=== PATIENT | female | born 1955 | race Caucasian/White ===

== ENCOUNTER → 2017-12-21 | Outpatient (CLI) | payer BC ==
[~2017-12-21] MED LIST: GADOBUTROL 7.5 MMOL/7.5 ML (GADAVIST) VIAL IV ONE
--- NOTE | 2017-12-21 13:58 | Diagnostic Imaging Report ---
INDICATION: Multiple myeloma. EXAMINATION: Pre-and post-intravenous contrast multiplanar multisequence imaging of the thoracic spine was performed. COMPARISON: Correlation is made with prior MRI of the thoracic spine from 10/20/2017. FINDINGS: There has been further loss of height of the T6 vertebral body when compared with the prior exam. This is now near vertebral plana. The degree of abnormal enhancement and overall volume of the marrow replacing process involving T6 vertebral body has decreased significantly since prior exam. There continues to be involvement of the right pedicle. There continues to be some bulging posteriorly indenting the thecal sac and producing a mild narrowing of the canal. However, again no signal changes within the spinal cord are identified. No abnormal enhancement within the spinal cord is identified. Tiny area of enhancement involving the T9 vertebral body is stable. No new region of enhancement is detected. The paraspinous tissues are unremarkable. IMPRESSION: Further progression of compression of the T6 vertebral body since exam from 10/20/2017, which is now near vertebra plana. The overall tumor volume does appear to be significantly decreased however since prior exam. There continues to be abnormal enhancement at the T6 level as well as a tiny focus at the T9 level. No abnormal signal changes within the spinal cord or new regions of marrow replacement are identified. Dictated by: Dictated on workstation # [id number]
== END ==
LOC: RAD 10:30
PROVIDERS: ATTEND Radiology Radiation Oncology
DX: C90.00 Multiple myeloma not having achieved remission (principal)
CPT/HCPCS: 72157

== ENCOUNTER → 2018-01-14 | Outpatient (CLI) | payer BC | LOC: WOUNDCARE 08:49 | PROVIDERS: ATTEND Internal Medicine | DX: L89.893 Pressure ulcer of other site, stage 3 (principal); L84 Corns and callosities; C90.00 Multiple myeloma not having achieved remission; R73.09 Other abnormal glucose | CPT/HCPCS: 11042; 87070; 87075; 87101; 87205 ==

== ENCOUNTER → 2018-01-14 | Outpatient (CLI) | payer BC ==
--- NOTE | 2018-01-14 11:46 | Diagnostic Imaging Report ---
Right foot. INDICATION: Foot pain. 3 views were obtained. There are no prior studies available for comparison. FINDINGS: There are postsurgical changes involving the base of the first metatarsal and the first cuneiform. There are 2 orthopedic fixation wires traversing the first carpometacarpal joint. There also appear to be degenerative changes involving the joint and the articulation of the first and second cuneiforms. There is fairly severe degenerative disease of the articular surfaces of the cuneiforms and the navicular bone as well. There are also degenerative changes involving the third cuneiform and the base of the third metatarsal. There is no fracture or acute bony abnormality identified. There is a calcaneal spur and there is a small calcification in the soft tissues anterior to the calcaneal spur. This may be a sequela of prior trauma. The soft tissues are unremarkable. IMPRESSION: 1. There is no evidence for an acute bony abnormality. 2. There are postsurgical and degenerative changes involving the midfoot particularly the medial half of the midfoot. 3. If clinical concern regarding an underlying abnormality persists and further imaging is desired, then MRI would be recommended. Dictated by: Dictated on workstation # [id number]
== END ==
LOC: RAD 10:30
PROVIDERS: ATTEND Internal Medicine
DX: L89.893 Pressure ulcer of other site, stage 3 (principal); Z98.890 Other specified postprocedural states
CPT/HCPCS: 73630

== ENCOUNTER → 2018-01-18 | Outpatient (RCR) | payer BC ==
[2017-10-20 15:14] LABS: ABSOLUTE RETIC # 42 10e9/L (24-90); BASOPHILS % (AUTO) 0 % (0-10); EOSINOPHILS % (AUTO) 0 % (0-10); HEMATOCRIT 41 % (35-52); HEMOGLOBIN 13.8 G/DL (11.5-16.0); LYMPHOCYTES # (AUTO) 1.4 X 10^3 (1.0-4.0); LYMPHOCYTES % (AUTO) 20 % (12-44); MEAN CORPUSCULAR HEMOGLOBIN 31 PG (25-34); MEAN CORPUSCULAR HGB CONC 34 G/DL (32-36); MEAN CORPUSCULAR VOLUME 90 FL (80-99); MEAN PLATELET VOLUME 11.8 FL (7.4-10.4); MONOCYTES # (AUTO) 0.8 X 10^3 (0.0-1.0); MONOCYTES % (AUTO) 12 % (0-12); NEUTROPHILS # (AUTO) 4.9 X 10^3 (1.8-7.8); NEUTROPHILS % (AUTO) 69 % (42-75); PLATELET COUNT 197 10^3/uL (130-400); RED BLOOD COUNT 4.48 10^6/uL (4.35-5.85); RED CELL DISTRIBUTION WIDTH 12.7 % (10.0-14.5); RETICULOCYTE % 0.93 % (0.50-2.40); WHITE BLOOD COUNT 7.1 10^3/uL (4.3-11.0)
[2017-10-20 15:21] LABS: ALANINE AMINOTRANSFERASE 27 U/L (0-55); ALBUMIN 4.1 GM/DL (3.2-4.5); ALKALINE PHOSPHATASE 84 U/L (40-136); BILIRUBIN,TOTAL 0.4 MG/DL (0.1-1.0); BUN/CREATININE RATIO 25; CARBON DIOXIDE 26 MMOL/L (21-32); CHLORIDE 103 MMOL/L (98-107); CREATININE SERUM 0.72 MG/DL (0.60-1.30); GFR ESTIMATED > 60; GLUCOSE 109 MG/DL (70-105); POTASSIUM 3.7 MMOL/L (3.6-5.0); SODIUM 140 MMOL/L (135-145); TOTAL PROTEIN 8.1 GM/DL (6.4-8.2)
[2017-10-23 06:54] LABS: IMMUNOFIX PATH REPORT NUMBER Complete (Complete)
[2017-11-11 13:38] LABS: BASOPHILS % (AUTO) 0 % (0-10); EOSINOPHILS % (AUTO) 0 % (0-10); HEMATOCRIT 42 % (35-52); HEMOGLOBIN 14.7 G/DL (11.5-16.0); LYMPHOCYTES # (AUTO) 0.5 X 10^3 (1.0-4.0); LYMPHOCYTES % (AUTO) 5 % (12-44); MEAN CORPUSCULAR HEMOGLOBIN 32 PG (25-34); MEAN CORPUSCULAR HGB CONC 35 G/DL (32-36); MEAN CORPUSCULAR VOLUME 89 FL (80-99); MEAN PLATELET VOLUME 12.3 FL (7.4-10.4); MONOCYTES # (AUTO) 0.9 X 10^3 (0.0-1.0); MONOCYTES % (AUTO) 9 % (0-12); NEUTROPHILS # (AUTO) 8.4 X 10^3 (1.8-7.8); NEUTROPHILS % (AUTO) 86 % (42-75); PLATELET COUNT 107 10^3/uL (130-400); RED BLOOD COUNT 4.64 10^6/uL (4.35-5.85); RED CELL DISTRIBUTION WIDTH 12.8 % (10.0-14.5); WHITE BLOOD COUNT 9.8 10^3/uL (4.3-11.0)
[2017-11-11 13:56] LABS: BUN/CREATININE RATIO 34; CARBON DIOXIDE 25 MMOL/L (21-32); CHLORIDE 104 MMOL/L (98-107); GFR ESTIMATED > 60; GLUCOSE 123 MG/DL (70-105); POTASSIUM 3.9 MMOL/L (3.6-5.0); SODIUM 140 MMOL/L (135-145)
[2017-11-18 14:34] LABS: BASOPHILS % (AUTO) 0 % (0-10); EOSINOPHILS # (AUTO) 0.1 10^3/uL (0.0-0.3); EOSINOPHILS % (AUTO) 2 % (0-10); HEMATOCRIT 44 % (35-52); HEMOGLOBIN 15.2 G/DL (11.5-16.0); LYMPHOCYTES # (AUTO) 0.6 X 10^3 (1.0-4.0); LYMPHOCYTES % (AUTO) 8 % (12-44); MEAN CORPUSCULAR HEMOGLOBIN 32 PG (25-34); MEAN CORPUSCULAR HGB CONC 34 G/DL (32-36); MEAN CORPUSCULAR VOLUME 93 FL (80-99); MEAN PLATELET VOLUME 11.1 FL (7.4-10.4); MONOCYTES # (AUTO) 1.2 X 10^3 (0.0-1.0); MONOCYTES % (AUTO) 15 % (0-12); NEUTROPHILS # (AUTO) 5.8 X 10^3 (1.8-7.8); NEUTROPHILS % (AUTO) 75 % (42-75); PLATELET COUNT 208 10^3/uL (130-400); RED BLOOD COUNT 4.79 10^6/uL (4.35-5.85); RED CELL DISTRIBUTION WIDTH 14.5 % (10.0-14.5); WHITE BLOOD COUNT 7.7 10^3/uL (4.3-11.0)
[2017-11-18 14:59] LABS: BUN/CREATININE RATIO 41; CALCIUM 8.6 MG/DL (8.5-10.1); CARBON DIOXIDE 27 MMOL/L (21-32); CHLORIDE 104 MMOL/L (98-107); CREATININE SERUM 0.61 MG/DL (0.60-1.30); GFR ESTIMATED > 60; GLUCOSE 114 MG/DL (70-105); POTASSIUM 3.5 MMOL/L (3.6-5.0); SODIUM 140 MMOL/L (135-145)
[2017-11-24 11:04] LABS: BASOPHILS % (AUTO) 1 % (0-10); EOSINOPHILS # (AUTO) 0.1 10^3/uL (0.0-0.3); EOSINOPHILS % (AUTO) 2 % (0-10); HEMATOCRIT 43 % (35-52); HEMOGLOBIN 14.9 G/DL (11.5-16.0); LYMPHOCYTES # (AUTO) 0.5 X 10^3 (1.0-4.0); LYMPHOCYTES % (AUTO) 13 % (12-44); MEAN CORPUSCULAR HEMOGLOBIN 32 PG (25-34); MEAN CORPUSCULAR HGB CONC 35 G/DL (32-36); MEAN CORPUSCULAR VOLUME 93 FL (80-99); MEAN PLATELET VOLUME 10.6 FL (7.4-10.4); MONOCYTES # (AUTO) 0.7 X 10^3 (0.0-1.0); MONOCYTES % (AUTO) 19 % (0-12); NEUTROPHILS # (AUTO) 2.4 X 10^3 (1.8-7.8); NEUTROPHILS % (AUTO) 66 % (42-75); PLATELET COUNT 231 10^3/uL (130-400); RED BLOOD COUNT 4.65 10^6/uL (4.35-5.85); WHITE BLOOD COUNT 3.6 10^3/uL (4.3-11.0)
[2017-11-24 11:30] LABS: ALANINE AMINOTRANSFERASE 45 U/L (0-55); ALBUMIN 3.7 GM/DL (3.2-4.5); ALKALINE PHOSPHATASE 73 U/L (40-136); BILIRUBIN,TOTAL 0.5 MG/DL (0.1-1.0); BUN/CREATININE RATIO 32; CALCIUM 8.6 MG/DL (8.5-10.1); CARBON DIOXIDE 23 MMOL/L (21-32); CHLORIDE 107 MMOL/L (98-107); CREATININE SERUM 0.65 MG/DL (0.60-1.30); GFR ESTIMATED > 60; GLUCOSE 116 MG/DL (70-105); POTASSIUM 3.9 MMOL/L (3.6-5.0); SODIUM 141 MMOL/L (135-145); TOTAL PROTEIN 6.4 GM/DL (6.4-8.2)
[2017-11-30 13:50] LABS: BASOPHILS % (AUTO) 1 % (0-10); EOSINOPHILS % (AUTO) 1 % (0-10); HEMATOCRIT 45 % (35-52); HEMOGLOBIN 15.4 G/DL (11.5-16.0); LYMPHOCYTES # (AUTO) 0.6 X 10^3 (1.0-4.0); LYMPHOCYTES % (AUTO) 15 % (12-44); MEAN CORPUSCULAR HEMOGLOBIN 32 PG (25-34); MEAN CORPUSCULAR HGB CONC 34 G/DL (32-36); MEAN CORPUSCULAR VOLUME 93 FL (80-99); MEAN PLATELET VOLUME 10.2 FL (7.4-10.4); MONOCYTES # (AUTO) 0.6 X 10^3 (0.0-1.0); MONOCYTES % (AUTO) 14 % (0-12); NEUTROPHILS # (AUTO) 2.9 X 10^3 (1.8-7.8); NEUTROPHILS % (AUTO) 70 % (42-75); PLATELET COUNT 241 10^3/uL (130-400); RED BLOOD COUNT 4.81 10^6/uL (4.35-5.85); RED CELL DISTRIBUTION WIDTH 15.4 % (10.0-14.5); WHITE BLOOD COUNT 4.2 10^3/uL (4.3-11.0)
[2017-11-30 14:13] LABS: BUN/CREATININE RATIO 29; CARBON DIOXIDE 27 MMOL/L (21-32); CHLORIDE 105 MMOL/L (98-107); CREATININE SERUM 0.68 MG/DL (0.60-1.30); GFR ESTIMATED > 60; GLUCOSE 119 MG/DL (70-105); POTASSIUM 4.1 MMOL/L (3.6-5.0); SODIUM 141 MMOL/L (135-145)
[2017-12-07 13:25] LABS: BASOPHILS % (AUTO) 0 % (0-10); EOSINOPHILS % (AUTO) 0 % (0-10); HEMATOCRIT 48 % (35-52); HEMOGLOBIN 16.6 G/DL (11.5-16.0); LYMPHOCYTES # (AUTO) 0.9 X 10^3 (1.0-4.0); LYMPHOCYTES % (AUTO) 12 % (12-44); MEAN CORPUSCULAR HEMOGLOBIN 32 PG (25-34); MEAN CORPUSCULAR HGB CONC 35 G/DL (32-36); MEAN CORPUSCULAR VOLUME 92 FL (80-99); MEAN PLATELET VOLUME 12.2 FL (7.4-10.4); MONOCYTES # (AUTO) 0.4 X 10^3 (0.0-1.0); MONOCYTES % (AUTO) 6 % (0-12); NEUTROPHILS # (AUTO) 5.8 X 10^3 (1.8-7.8); NEUTROPHILS % (AUTO) 81 % (42-75); PLATELET COUNT 111 10^3/uL (130-400); RED BLOOD COUNT 5.22 10^6/uL (4.35-5.85); RED CELL DISTRIBUTION WIDTH 15.3 % (10.0-14.5); WHITE BLOOD COUNT 7.2 10^3/uL (4.3-11.0)
[2017-12-07 13:40] LABS: BUN/CREATININE RATIO 19; CALCIUM 8.8 MG/DL (8.5-10.1); CARBON DIOXIDE 21 MMOL/L (21-32); CHLORIDE 107 MMOL/L (98-107); GFR ESTIMATED > 60; GLUCOSE 126 MG/DL (70-105); POTASSIUM 3.8 MMOL/L (3.6-5.0); SODIUM 140 MMOL/L (135-145)
[2017-12-14 14:40] LABS: BASOPHILS % (AUTO) 0 % (0-10); EOSINOPHILS % (AUTO) 1 % (0-10); HEMATOCRIT 43 % (35-52); HEMOGLOBIN 15.2 G/DL (11.5-16.0); LYMPHOCYTES % (AUTO) 13 % (12-44); MEAN CORPUSCULAR HEMOGLOBIN 32 PG (25-34); MEAN CORPUSCULAR HGB CONC 35 G/DL (32-36); MEAN CORPUSCULAR VOLUME 91 FL (80-99); MONOCYTES % (AUTO) 13 % (0-12); NEUTROPHILS # (AUTO) 5.6 X 10^3 (1.8-7.8); NEUTROPHILS % (AUTO) 73 % (42-75); PLATELET COUNT 58 10^3/uL (130-400); RED BLOOD COUNT 4.71 10^6/uL (4.35-5.85); RED CELL DISTRIBUTION WIDTH 15.2 % (10.0-14.5); WHITE BLOOD COUNT 7.6 10^3/uL (4.3-11.0)
[2017-12-14 14:57] LABS: BUN/CREATININE RATIO 25; CARBON DIOXIDE 24 MMOL/L (21-32); CHLORIDE 109 MMOL/L (98-107); CREATININE SERUM 0.68 MG/DL (0.60-1.30); GFR ESTIMATED > 60; GLUCOSE 102 MG/DL (70-105); POTASSIUM 3.8 MMOL/L (3.6-5.0); SODIUM 141 MMOL/L (135-145)
[2017-12-21 12:30] LABS: BASOPHILS % (AUTO) 0 % (0-10); EOSINOPHILS % (AUTO) 0 % (0-10); HEMATOCRIT 43 % (35-52); LYMPHOCYTES # (AUTO) 0.6 X 10^3 (1.0-4.0); LYMPHOCYTES % (AUTO) 8 % (12-44); MEAN CORPUSCULAR HEMOGLOBIN 32 PG (25-34); MEAN CORPUSCULAR HGB CONC 35 G/DL (32-36); MEAN CORPUSCULAR VOLUME 93 FL (80-99); MEAN PLATELET VOLUME 11.1 FL (7.4-10.4); MONOCYTES # (AUTO) 0.4 X 10^3 (0.0-1.0); MONOCYTES % (AUTO) 4 % (0-12); NEUTROPHILS % (AUTO) 88 % (42-75); PLATELET COUNT 320 10^3/uL (130-400); RED BLOOD COUNT 4.67 10^6/uL (4.35-5.85)
[2017-12-21 12:54] LABS: ALANINE AMINOTRANSFERASE 24 U/L (0-55); ALBUMIN 4.5 GM/DL (3.2-4.5); ALKALINE PHOSPHATASE 81 U/L (40-136); BILIRUBIN,TOTAL 1.1 MG/DL (0.1-1.0); BUN/CREATININE RATIO 23; CALCIUM 9.8 MG/DL (8.5-10.1); CARBON DIOXIDE 20 MMOL/L (21-32); CHLORIDE 106 MMOL/L (98-107); CREATININE SERUM 0.74 MG/DL (0.60-1.30); GFR ESTIMATED > 60; GLUCOSE 158 MG/DL (70-105); POTASSIUM 3.9 MMOL/L (3.6-5.0); SODIUM 140 MMOL/L (135-145); TOTAL PROTEIN 7.3 GM/DL (6.4-8.2)
[2017-12-28 13:33] LABS: BASOPHILS % (AUTO) 0 % (0-10); EOSINOPHILS # (AUTO) 0.1 10^3/uL (0.0-0.3); EOSINOPHILS % (AUTO) 1 % (0-10); HEMATOCRIT 45 % (35-52); LYMPHOCYTES # (AUTO) 0.6 X 10^3 (1.0-4.0); LYMPHOCYTES % (AUTO) 8 % (12-44); MEAN CORPUSCULAR HEMOGLOBIN 32 PG (25-34); MEAN CORPUSCULAR HGB CONC 33 G/DL (32-36); MEAN CORPUSCULAR VOLUME 95 FL (80-99); MEAN PLATELET VOLUME 11.4 FL (7.4-10.4); MONOCYTES # (AUTO) 0.2 X 10^3 (0.0-1.0); MONOCYTES % (AUTO) 2 % (0-12); NEUTROPHILS # (AUTO) 6.3 X 10^3 (1.8-7.8); NEUTROPHILS % (AUTO) 88 % (42-75); PLATELET COUNT 101 10^3/uL (130-400); RED BLOOD COUNT 4.73 10^6/uL (4.35-5.85); WHITE BLOOD COUNT 7.1 10^3/uL (4.3-11.0)
[2017-12-28 14:01] LABS: BUN/CREATININE RATIO 19; CALCIUM 8.3 MG/DL (8.5-10.1); CARBON DIOXIDE 27 MMOL/L (21-32); CHLORIDE 104 MMOL/L (98-107); GFR ESTIMATED > 60; GLUCOSE 135 MG/DL (70-105); POTASSIUM 4.5 MMOL/L (3.6-5.0); SODIUM 141 MMOL/L (135-145)
[2018-01-04 13:36] LABS: BASOPHILS % (AUTO) 0 % (0-10); EOSINOPHILS # (AUTO) 0.1 10^3/uL (0.0-0.3); EOSINOPHILS % (AUTO) 1 % (0-10); HEMATOCRIT 42 % (35-52); LYMPHOCYTES # (AUTO) 0.9 X 10^3 (1.0-4.0); LYMPHOCYTES % (AUTO) 8 % (12-44); MEAN CORPUSCULAR HEMOGLOBIN 32 PG (25-34); MEAN CORPUSCULAR HGB CONC 34 G/DL (32-36); MEAN CORPUSCULAR VOLUME 95 FL (80-99); MONOCYTES # (AUTO) 1.9 X 10^3 (0.0-1.0); MONOCYTES % (AUTO) 16 % (0-12); NEUTROPHILS # (AUTO) 8.6 X 10^3 (1.8-7.8); NEUTROPHILS % (AUTO) 75 % (42-75); RED CELL DISTRIBUTION WIDTH 14.9 % (10.0-14.5); WHITE BLOOD COUNT 11.5 10^3/uL (4.3-11.0)
[2018-01-04 13:47] LABS: PLATELET COUNT 24 10^3/uL (130-400)
[2018-01-04 13:58] LABS: BUN/CREATININE RATIO 23; CALCIUM 8.4 MG/DL (8.5-10.1); CARBON DIOXIDE 30 MMOL/L (21-32); CHLORIDE 105 MMOL/L (98-107); CREATININE SERUM 0.69 MG/DL (0.60-1.30); GFR ESTIMATED > 60; GLUCOSE 91 MG/DL (70-105); SODIUM 141 MMOL/L (135-145)
[2018-01-07 09:56] LABS: BASOPHILS % (AUTO) 0 % (0-10); EOSINOPHILS # (AUTO) 0.1 10^3/uL (0.0-0.3); EOSINOPHILS % (AUTO) 2 % (0-10); HEMATOCRIT 39 % (35-52); HEMOGLOBIN 12.9 G/DL (11.5-16.0); LYMPHOCYTES # (AUTO) 0.6 X 10^3 (1.0-4.0); LYMPHOCYTES % (AUTO) 12 % (12-44); MEAN CORPUSCULAR HEMOGLOBIN 31 PG (25-34); MEAN CORPUSCULAR HGB CONC 33 G/DL (32-36); MEAN CORPUSCULAR VOLUME 95 FL (80-99); MEAN PLATELET VOLUME 12.4 FL (7.4-10.4); MONOCYTES # (AUTO) 1.1 X 10^3 (0.0-1.0); MONOCYTES % (AUTO) 21 % (0-12); NEUTROPHILS # (AUTO) 3.4 X 10^3 (1.8-7.8); NEUTROPHILS % (AUTO) 65 % (42-75); PLATELET COUNT 111 10^3/uL (130-400); RED BLOOD COUNT 4.11 10^6/uL (4.35-5.85); RED CELL DISTRIBUTION WIDTH 15.2 % (10.0-14.5); WHITE BLOOD COUNT 5.2 10^3/uL (4.3-11.0)
[2018-01-07 10:21] LABS: BUN/CREATININE RATIO 23; CALCIUM 8.6 MG/DL (8.5-10.1); CARBON DIOXIDE 25 MMOL/L (21-32); CHLORIDE 110 MMOL/L (98-107); CREATININE SERUM 0.64 MG/DL (0.60-1.30); GFR ESTIMATED > 60; GLUCOSE 88 MG/DL (70-105); POTASSIUM 3.7 MMOL/L (3.6-5.0); SODIUM 142 MMOL/L (135-145)
[2018-01-11 13:36] LABS: BASOPHILS % (AUTO) 0 % (0-10); EOSINOPHILS % (AUTO) 0 % (0-10); HEMATOCRIT 37 % (35-52); HEMOGLOBIN 12.4 G/DL (11.5-16.0); LYMPHOCYTES # (AUTO) 0.3 X 10^3 (1.0-4.0); LYMPHOCYTES % (AUTO) 5 % (12-44); MEAN CORPUSCULAR HEMOGLOBIN 32 PG (25-34); MEAN CORPUSCULAR HGB CONC 34 G/DL (32-36); MEAN CORPUSCULAR VOLUME 95 FL (80-99); MEAN PLATELET VOLUME 11.3 FL (7.4-10.4); MONOCYTES # (AUTO) 0.1 X 10^3 (0.0-1.0); MONOCYTES % (AUTO) 2 % (0-12); NEUTROPHILS # (AUTO) 5.3 X 10^3 (1.8-7.8); NEUTROPHILS % (AUTO) 93 % (42-75); PLATELET COUNT 357 10^3/uL (130-400); RED BLOOD COUNT 3.88 10^6/uL (4.35-5.85); RED CELL DISTRIBUTION WIDTH 14.8 % (10.0-14.5); WHITE BLOOD COUNT 5.7 10^3/uL (4.3-11.0)
[2018-01-11 14:01] LABS: ALANINE AMINOTRANSFERASE 26 U/L (0-55); ALKALINE PHOSPHATASE 77 U/L (40-136); BILIRUBIN,TOTAL 0.9 MG/DL (0.1-1.0); BUN/CREATININE RATIO 21; CALCIUM 9.8 MG/DL (8.5-10.1); CARBON DIOXIDE 28 MMOL/L (21-32); CHLORIDE 105 MMOL/L (98-107); GFR ESTIMATED > 60; GLUCOSE 129 MG/DL (70-105); POTASSIUM 3.9 MMOL/L (3.6-5.0); SODIUM 141 MMOL/L (135-145); TOTAL PROTEIN 6.5 GM/DL (6.4-8.2)
[~2018-01-18] VITALS: Ht 170.2 cm; Wt 77.1 kg
[~2018-01-18] MED LIST changes: +BORTEZOMIB 3.5 MG VELCADE SC SCH; +CYCLOPHOSPHAMIDE INJECTION 600 MG in NS (IVPB) CANCER CENTER 250 ML IV SCH; +DEXAMETHASONE INJ NR; -GADOBUTROL 7.5 MMOL/7.5 ML (GADAVIST) VIAL IV ONE; +NS INJ NR; +NS IV 1000 ML (CANCER CTR) IV SCH; +NS IV 500 ML (CANCER CENTER) 500 ML ONE; +ONDANSETRON MDV (CANCER CENTER 8 MG in NS (IVPB) CANCER CENTER 50 ML IV SCH; +ZOLEDRONIC ACID (CANCER CTR) 4 MG in NS (IVPB) CANCER CENTER 100 ML IV ONE; +ZOLEDRONIC ACID (CANCER CTR) 4 MG in NS (IVPB) CANCER CENTER 100 ML IV SCH; +morphine INJ 10 MG/ML 1ML (CANCER CENTER) IV NR; +morphine INJ 4 MG/ML 1 ML (CANCER CTR) IV PRN
[2018-01-18 13:13] LABS: BASOPHILS % (AUTO) 0 % (0-10); EOSINOPHILS % (AUTO) 1 % (0-10); HEMATOCRIT 41 % (35-52); HEMOGLOBIN 14.2 G/DL (11.5-16.0); LYMPHOCYTES # (AUTO) 0.6 X 10^3 (1.0-4.0); LYMPHOCYTES % (AUTO) 8 % (12-44); MEAN CORPUSCULAR HEMOGLOBIN 32 PG (25-34); MEAN CORPUSCULAR HGB CONC 35 G/DL (32-36); MEAN CORPUSCULAR VOLUME 92 FL (80-99); MEAN PLATELET VOLUME 11.4 FL (7.4-10.4); MONOCYTES # (AUTO) 0.1 X 10^3 (0.0-1.0); MONOCYTES % (AUTO) 2 % (0-12); NEUTROPHILS # (AUTO) 6.3 X 10^3 (1.8-7.8); NEUTROPHILS % (AUTO) 89 % (42-75); PLATELET COUNT 150 10^3/uL (130-400); RED BLOOD COUNT 4.45 10^6/uL (4.35-5.85); RED CELL DISTRIBUTION WIDTH 14.7 % (10.0-14.5)
[2018-01-18 13:31] LABS: BUN/CREATININE RATIO 21; CALCIUM 9.2 MG/DL (8.5-10.1); CARBON DIOXIDE 26 MMOL/L (21-32); CHLORIDE 107 MMOL/L (98-107); CREATININE SERUM 0.72 MG/DL (0.60-1.30); GFR ESTIMATED > 60; GLUCOSE 112 MG/DL (70-105); POTASSIUM 4.1 MMOL/L (3.6-5.0); SODIUM 141 MMOL/L (135-145)
[2018-01-18 13:51] LABS: SMEAR SCAN COMMENT YES
== END | disposition home or self-care (01) ==
LOC: ONC 10-20 12:42
PROVIDERS: ATTEND Internal Medicine Hematology & Oncology
DX: G95.9 Disease of spinal cord, unspecified (principal)
CPT/HCPCS: 36415; 80048; 80053; 82232; 82784; 83615; 83883; 84155; 84165; 85025; 85045; 86334; 96365; 96374; 96375; 96376; 96401; 96413; 99213; 99214

== ENCOUNTER → 2018-01-18 | Outpatient (CLI) | payer BC | LOC: LAB 12:56 | PROVIDERS: ATTEND Internal Medicine | DX: L89.893 Pressure ulcer of other site, stage 3 (principal); R73.09 Other abnormal glucose | CPT/HCPCS: 36415; 83036; 85652 ==

== ENCOUNTER → 2018-01-21 | Outpatient (CLI) | payer BC | LOC: WOUNDCARE 08:42 | PROVIDERS: ATTEND Nurse Practitioner | DX: L89.893 Pressure ulcer of other site, stage 3 (principal); L84 Corns and callosities; C90.00 Multiple myeloma not having achieved remission; R73.09 Other abnormal glucose | CPT/HCPCS: 11042 ==

== ENCOUNTER → 2018-01-26 | Outpatient (CLI) | payer BC | LOC: WOUNDCARE 10:27 | PROVIDERS: ATTEND Nurse Practitioner | DX: L89.893 Pressure ulcer of other site, stage 3 (principal); L84 Corns and callosities; C90.00 Multiple myeloma not having achieved remission; R73.09 Other abnormal glucose | CPT/HCPCS: 29445 ==

== ENCOUNTER → 2018-01-28 | Outpatient (CLI) | payer BC | LOC: WOUNDCARE 08:46 | PROVIDERS: ATTEND Internal Medicine | DX: L89.893 Pressure ulcer of other site, stage 3 (principal); L84 Corns and callosities; C90.00 Multiple myeloma not having achieved remission; R73.09 Other abnormal glucose | CPT/HCPCS: 11042 ==

== ENCOUNTER → 2018-02-03 | Outpatient (CLI) | payer BC | LOC: WOUNDCARE 10:06 | PROVIDERS: ATTEND Surgery | DX: L89.893 Pressure ulcer of other site, stage 3 (principal); L84 Corns and callosities; C90.00 Multiple myeloma not having achieved remission | CPT/HCPCS: 99213 ==

== ENCOUNTER → 2018-02-04 | Outpatient (CLI) | payer BC | LOC: WOUNDCARE 08:49 | PROVIDERS: ATTEND Internal Medicine | DX: L89.893 Pressure ulcer of other site, stage 3 (principal); L84 Corns and callosities; C90.00 Multiple myeloma not having achieved remission; R73.09 Other abnormal glucose | CPT/HCPCS: 97597 ==

== ENCOUNTER → 2018-02-10 | Outpatient (CLI) | payer BC | LOC: WOUNDCARE 09:59 | PROVIDERS: ATTEND Surgery | DX: L89.893 Pressure ulcer of other site, stage 3 (principal); L84 Corns and callosities; R73.09 Other abnormal glucose; C90.00 Multiple myeloma not having achieved remission | CPT/HCPCS: 99212 ==

== ENCOUNTER 2018-04-12 12:57 | Outpatient (RCR) | payer BC ==
[2018-01-25 11:29] LABS: BASOPHILS % (AUTO) 0 % (0-10); EOSINOPHILS # (AUTO) 0.1 10^3/uL (0.0-0.3); EOSINOPHILS % (AUTO) 1 % (0-10); HEMATOCRIT 40 % (35-52); HEMOGLOBIN 13.3 G/DL (11.5-16.0); LYMPHOCYTES # (AUTO) 0.6 X 10^3 (1.0-4.0); LYMPHOCYTES % (AUTO) 4 % (12-44); MEAN CORPUSCULAR HEMOGLOBIN 32 PG (25-34); MEAN CORPUSCULAR HGB CONC 34 G/DL (32-36); MEAN CORPUSCULAR VOLUME 95 FL (80-99); MONOCYTES # (AUTO) 1.4 X 10^3 (0.0-1.0); MONOCYTES % (AUTO) 10 % (0-12); NEUTROPHILS # (AUTO) 11.3 X 10^3 (1.8-7.8); NEUTROPHILS % (AUTO) 85 % (42-75); RED BLOOD COUNT 4.17 10^6/uL (4.35-5.85); RED CELL DISTRIBUTION WIDTH 15.2 % (10.0-14.5); WHITE BLOOD COUNT 13.4 10^3/uL (4.3-11.0)
[2018-01-25 11:39] LABS: PLATELET COUNT 29 10^3/uL (130-400)
[2018-01-25 11:50] LABS: BUN/CREATININE RATIO 22; CALCIUM 8.6 MG/DL (8.5-10.1); CARBON DIOXIDE 28 MMOL/L (21-32); CHLORIDE 106 MMOL/L (98-107); CREATININE SERUM 0.86 MG/DL (0.60-1.30); GFR ESTIMATED > 60; GLUCOSE 103 MG/DL (70-105); POTASSIUM 3.8 MMOL/L (3.6-5.0); SODIUM 141 MMOL/L (135-145)
[2018-02-03 11:13] LABS: BASOPHILS % (AUTO) 1 % (0-10); EOSINOPHILS # (AUTO) 0.1 10^3/uL (0.0-0.3); EOSINOPHILS % (AUTO) 2 % (0-10); HEMATOCRIT 35 % (35-52); HEMOGLOBIN 11.5 G/DL (11.5-16.0); LYMPHOCYTES # (AUTO) 0.7 X 10^3 (1.0-4.0); LYMPHOCYTES % (AUTO) 19 % (12-44); MEAN CORPUSCULAR HEMOGLOBIN 32 PG (25-34); MEAN CORPUSCULAR HGB CONC 33 G/DL (32-36); MEAN CORPUSCULAR VOLUME 96 FL (80-99); MEAN PLATELET VOLUME 10.7 FL (7.4-10.4); MONOCYTES # (AUTO) 0.8 X 10^3 (0.0-1.0); MONOCYTES % (AUTO) 21 % (0-12); NEUTROPHILS # (AUTO) 2.1 X 10^3 (1.8-7.8); NEUTROPHILS % (AUTO) 58 % (42-75); PLATELET COUNT 285 10^3/uL (130-400); RED BLOOD COUNT 3.65 10^6/uL (4.35-5.85); RED CELL DISTRIBUTION WIDTH 14.9 % (10.0-14.5); WHITE BLOOD COUNT 3.7 10^3/uL (4.3-11.0)
[2018-02-03 11:38] LABS: ALANINE AMINOTRANSFERASE 21 U/L (0-55); ALBUMIN 3.8 GM/DL (3.2-4.5); ALKALINE PHOSPHATASE 55 U/L (40-136); BILIRUBIN,TOTAL 0.9 MG/DL (0.1-1.0); BUN/CREATININE RATIO 18; CALCIUM 8.4 MG/DL (8.5-10.1); CARBON DIOXIDE 28 MMOL/L (21-32); CHLORIDE 109 MMOL/L (98-107); CREATININE SERUM 0.72 MG/DL (0.60-1.30); GFR ESTIMATED > 60; GLUCOSE 91 MG/DL (70-105); POTASSIUM 4.1 MMOL/L (3.6-5.0); SODIUM 141 MMOL/L (135-145); TOTAL PROTEIN 5.8 GM/DL (6.4-8.2)
[~2018-04-12 12:57] MED LIST changes: -CYCLOPHOSPHAMIDE INJECTION 600 MG in NS (IVPB) CANCER CENTER 250 ML IV SCH; -DEXAMETHASONE INJ NR; -NS INJ NR; -NS IV 500 ML (CANCER CENTER) 500 ML ONE; -ONDANSETRON MDV (CANCER CENTER 8 MG in NS (IVPB) CANCER CENTER 50 ML IV SCH; -ZOLEDRONIC ACID (CANCER CTR) 4 MG in NS (IVPB) CANCER CENTER 100 ML IV ONE; -morphine INJ 10 MG/ML 1ML (CANCER CENTER) IV NR; -morphine INJ 4 MG/ML 1 ML (CANCER CTR) IV PRN
[2018-04-12 13:11] LABS: BASOPHILS % (AUTO) 0 % (0-10); EOSINOPHILS # (AUTO) 0.1 10^3/uL (0.0-0.3); EOSINOPHILS % (AUTO) 3 % (0-10); HEMATOCRIT 38 % (35-52); HEMOGLOBIN 12.9 G/DL (11.5-16.0); LYMPHOCYTES # (AUTO) 1.3 X 10^3 (1.0-4.0); LYMPHOCYTES % (AUTO) 32 % (12-44); MEAN CORPUSCULAR HEMOGLOBIN 31 PG (25-34); MEAN CORPUSCULAR HGB CONC 34 G/DL (32-36); MEAN CORPUSCULAR VOLUME 92 FL (80-99); MEAN PLATELET VOLUME 12.1 FL (7.4-10.4); MONOCYTES # (AUTO) 0.6 X 10^3 (0.0-1.0); MONOCYTES % (AUTO) 14 % (0-12); NEUTROPHILS % (AUTO) 51 % (42-75); PLATELET COUNT 155 10^3/uL (130-400); RED BLOOD COUNT 4.17 10^6/uL (4.35-5.85); RED CELL DISTRIBUTION WIDTH 16.5 % (10.0-14.5)
[2018-04-12 13:33] LABS: ALANINE AMINOTRANSFERASE 22 U/L (0-55); ALBUMIN 3.9 GM/DL (3.2-4.5); ALKALINE PHOSPHATASE 59 U/L (40-136); BILIRUBIN,TOTAL 0.4 MG/DL (0.1-1.0); BUN/CREATININE RATIO 19; CALCIUM 9.2 MG/DL (8.5-10.1); CARBON DIOXIDE 25 MMOL/L (21-32); CHLORIDE 108 MMOL/L (98-107); CREATININE SERUM 0.63 MG/DL (0.60-1.30); GFR ESTIMATED > 60; GLUCOSE 100 MG/DL (70-105); POTASSIUM 4.3 MMOL/L (3.6-5.0); SODIUM 142 MMOL/L (135-145)
== END 2018-04-21 | disposition home or self-care (01) ==
LOC: ONC 12:57
PROVIDERS: ATTEND Internal Medicine Hematology & Oncology
DX: C90.00 Multiple myeloma not having achieved remission (principal); M84.58XA Pathological fracture in neoplastic disease, other specified site, initial encounter for fracture; L97.429 Non-pressure chronic ulcer of left heel and midfoot with unspecified severity; Z86.711 Personal history of pulmonary embolism; Z79.01 Long term (current) use of anticoagulants; Z79.891 Long term (current) use of opiate analgesic; Z79.899 Other long term (current) drug therapy; Z92.3 Personal history of irradiation
CPT/HCPCS: 36415; 80048; 80053; 85025; 96401; 99213

== ENCOUNTER 2018-07-08 14:19 | Outpatient (RCR) | payer BC ==
[2018-04-26 13:06] LABS: BASOPHILS % (AUTO) 0 % (0-10); EOSINOPHILS # (AUTO) 0.1 10^3/uL (0.0-0.3); EOSINOPHILS % (AUTO) 2 % (0-10); HEMATOCRIT 40 % (35-52); HEMOGLOBIN 13.7 G/DL (11.5-16.0); LYMPHOCYTES # (AUTO) 1.4 X 10^3 (1.0-4.0); LYMPHOCYTES % (AUTO) 34 % (12-44); MEAN CORPUSCULAR HEMOGLOBIN 31 PG (25-34); MEAN CORPUSCULAR HGB CONC 34 G/DL (32-36); MEAN CORPUSCULAR VOLUME 91 FL (80-99); MEAN PLATELET VOLUME 11.7 FL (7.4-10.4); MONOCYTES # (AUTO) 0.6 X 10^3 (0.0-1.0); MONOCYTES % (AUTO) 14 % (0-12); NEUTROPHILS # (AUTO) 2.1 X 10^3 (1.8-7.8); NEUTROPHILS % (AUTO) 50 % (42-75); PLATELET COUNT 129 10^3/uL (130-400); RED BLOOD COUNT 4.39 10^6/uL (4.35-5.85); RED CELL DISTRIBUTION WIDTH 14.9 % (10.0-14.5); WHITE BLOOD COUNT 4.2 10^3/uL (4.3-11.0)
[2018-04-26 13:24] LABS: ALANINE AMINOTRANSFERASE 25 U/L (0-55); ALBUMIN 4.2 GM/DL (3.2-4.5); ALKALINE PHOSPHATASE 62 U/L (40-136); BILIRUBIN,TOTAL 0.6 MG/DL (0.1-1.0); BUN/CREATININE RATIO 28; CALCIUM 9.5 MG/DL (8.5-10.1); CARBON DIOXIDE 24 MMOL/L (21-32); CHLORIDE 109 MMOL/L (98-107); CREATININE SERUM 0.64 MG/DL (0.60-1.30); GFR ESTIMATED > 60; GLUCOSE 88 MG/DL (70-105); POTASSIUM 4.2 MMOL/L (3.6-5.0); SODIUM 142 MMOL/L (135-145); TOTAL PROTEIN 6.4 GM/DL (6.4-8.2)
[2018-05-24 14:52] LABS: BASOPHILS % (AUTO) 0 % (0-10); EOSINOPHILS # (AUTO) 0.1 10^3/uL (0.0-0.3); EOSINOPHILS % (AUTO) 1 % (0-10); HEMATOCRIT 39 % (35-52); HEMOGLOBIN 13.1 G/DL (11.5-16.0); LYMPHOCYTES # (AUTO) 1.6 X 10^3 (1.0-4.0); LYMPHOCYTES % (AUTO) 38 % (12-44); MEAN CORPUSCULAR HEMOGLOBIN 31 PG (25-34); MEAN CORPUSCULAR HGB CONC 34 G/DL (32-36); MEAN CORPUSCULAR VOLUME 92 FL (80-99); MEAN PLATELET VOLUME 10.8 FL (7.4-10.4); MONOCYTES # (AUTO) 0.5 X 10^3 (0.0-1.0); MONOCYTES % (AUTO) 12 % (0-12); NEUTROPHILS % (AUTO) 48 % (42-75); PLATELET COUNT 157 10^3/uL (130-400); WHITE BLOOD COUNT 4.1 10^3/uL (4.3-11.0)
[2018-05-24 15:13] LABS: ALANINE AMINOTRANSFERASE 26 U/L (0-55); ALBUMIN 4.1 GM/DL (3.2-4.5); ALKALINE PHOSPHATASE 82 U/L (40-136); BILIRUBIN,TOTAL 0.6 MG/DL (0.1-1.0); BUN/CREATININE RATIO 27; CALCIUM 9.6 MG/DL (8.5-10.1); CARBON DIOXIDE 26 MMOL/L (21-32); CHLORIDE 112 MMOL/L (98-107); CREATININE SERUM 0.66 MG/DL (0.60-1.30); GFR ESTIMATED > 60; GLUCOSE 95 MG/DL (70-105); POTASSIUM 4.1 MMOL/L (3.6-5.0); SODIUM 143 MMOL/L (135-145); TOTAL PROTEIN 6.1 GM/DL (6.4-8.2)
[2018-07-08 14:39] LABS: BASOPHILS % (AUTO) 0 % (0-10); EOSINOPHILS % (AUTO) 1 % (0-10); HEMATOCRIT 40 % (35-52); LYMPHOCYTES # (AUTO) 0.9 X 10^3 (1.0-4.0); LYMPHOCYTES % (AUTO) 19 % (12-44); MEAN CORPUSCULAR HEMOGLOBIN 32 PG (25-34); MEAN CORPUSCULAR HGB CONC 35 G/DL (32-36); MEAN CORPUSCULAR VOLUME 91 FL (80-99); MEAN PLATELET VOLUME 11.1 FL (7.4-10.4); MONOCYTES # (AUTO) 0.4 X 10^3 (0.0-1.0); MONOCYTES % (AUTO) 9 % (0-12); NEUTROPHILS # (AUTO) 3.5 X 10^3 (1.8-7.8); NEUTROPHILS % (AUTO) 72 % (42-75); PLATELET COUNT 162 10^3/uL (130-400); RED BLOOD COUNT 4.43 10^6/uL (4.35-5.85); RED CELL DISTRIBUTION WIDTH 12.9 % (10.0-14.5); WHITE BLOOD COUNT 4.8 10^3/uL (4.3-11.0)
[2018-07-08 14:55] LABS: ALANINE AMINOTRANSFERASE 45 U/L (0-55); ALBUMIN 4.1 GM/DL (3.2-4.5); ALKALINE PHOSPHATASE 100 U/L (40-136); BILIRUBIN,TOTAL 0.4 MG/DL (0.1-1.0); BUN/CREATININE RATIO 16; CALCIUM 9.6 MG/DL (8.5-10.1); CARBON DIOXIDE 26 MMOL/L (21-32); CHLORIDE 107 MMOL/L (98-107); CREATININE SERUM 0.74 MG/DL (0.60-1.30); GFR ESTIMATED > 60; GLUCOSE 107 MG/DL (70-105); POTASSIUM 3.9 MMOL/L (3.6-5.0); SODIUM 139 MMOL/L (135-145); TOTAL PROTEIN 6.6 GM/DL (6.4-8.2)
[2018-07-08] MEDS ORDERED: ZOLEDRONIC ACID (CANCER CTR) 4 MG in NS (IVPB) CANCER CENTER 100 ML IV ONE (15:15)
== END 2018-07-25 | disposition home or self-care (01) ==
LOC: ONC 14:19
PROVIDERS: ATTEND Internal Medicine Hematology & Oncology
DX: C90.00 Multiple myeloma not having achieved remission (principal); M84.58XA Pathological fracture in neoplastic disease, other specified site, initial encounter for fracture; L97.429 Non-pressure chronic ulcer of left heel and midfoot with unspecified severity; Z86.711 Personal history of pulmonary embolism; Z79.01 Long term (current) use of anticoagulants; Z79.891 Long term (current) use of opiate analgesic; Z79.899 Other long term (current) drug therapy; Z92.3 Personal history of irradiation
CPT/HCPCS: 36415; 80053; 82784; 83883; 85025; 96365; 99213

== ENCOUNTER → 2018-08-11 | Outpatient (CLI) | payer BC ==
[2018-08-11 10:03] LABS: BASOPHILS % (AUTO) 1 % (0-10); EOSINOPHILS # (AUTO) 0.1 10^3/uL (0.0-0.3); EOSINOPHILS % (AUTO) 4 % (0-10); HEMATOCRIT 42 % (35-52); HEMOGLOBIN 14.3 G/DL (11.5-16.0); LYMPHOCYTES # (AUTO) 0.7 X 10^3 (1.0-4.0); LYMPHOCYTES % (AUTO) 25 % (12-44); MEAN CORPUSCULAR HEMOGLOBIN 31 PG (25-34); MEAN CORPUSCULAR HGB CONC 34 G/DL (32-36); MEAN CORPUSCULAR VOLUME 91 FL (80-99); MEAN PLATELET VOLUME 11.2 FL (7.4-10.4); MONOCYTES # (AUTO) 0.4 X 10^3 (0.0-1.0); MONOCYTES % (AUTO) 15 % (0-12); NEUTROPHILS # (AUTO) 1.5 X 10^3 (1.8-7.8); NEUTROPHILS % (AUTO) 55 % (42-75); PLATELET COUNT 154 10^3/uL (130-400); RED CELL DISTRIBUTION WIDTH 13.9 % (10.0-14.5); WHITE BLOOD COUNT 2.7 10^3/uL (4.3-11.0)
[2018-08-11 10:51] LABS: ALANINE AMINOTRANSFERASE 56 U/L (0-55); ALBUMIN 4.1 GM/DL (3.2-4.5); ALKALINE PHOSPHATASE 87 U/L (40-136); BILIRUBIN,TOTAL 0.7 MG/DL (0.1-1.0); BUN/CREATININE RATIO 19; CALCIUM 8.9 MG/DL (8.5-10.1); CARBON DIOXIDE 25 MMOL/L (21-32); CHLORIDE 107 MMOL/L (98-107); GFR ESTIMATED > 60; GLUCOSE 100 MG/DL (70-105); POTASSIUM 4.4 MMOL/L (3.6-5.0); SODIUM 140 MMOL/L (135-145); TOTAL PROTEIN 6.4 GM/DL (6.4-8.2)
[2018-08-13 11:38] LABS: IMMUNOFIX PATH REPORT NUMBER Complete (Complete)
== END ==
LOC: LAB 09:33
PROVIDERS: ATTEND Internal Medicine Hematology
DX: Z94.84 Stem cells transplant status (principal)
CPT/HCPCS: 36415; 80053; 83020; 83883; 84155; 84165; 85025; 86334

== ENCOUNTER 2018-11-01 11:47 | Inpatient (IN) | payer BC | END 2018-11-03 11:40 | disposition home or self-care (01) | LOC: ICU 11-02 01:46 → 4TH 11-02 11:00 | DX: J18.1 Lobar pneumonia, unspecified organism (principal); Z94.81 Bone marrow transplant status; J30.2 Other seasonal allergic rhinitis; E78.00 Pure hypercholesterolemia, unspecified; E03.9 Hypothyroidism, unspecified; M19.91 Primary osteoarthritis, unspecified site; M54.9 Dorsalgia, unspecified; Z85.79 Personal history of other malignant neoplasms of lymphoid, hematopoietic and related tissues; Z92.21 Personal history of antineoplastic chemotherapy ==

== ENCOUNTER 2018-11-08 13:35 | Outpatient (RCR) | payer BC ==
[2018-08-11 10:01] LABS: BASOPHILS % (AUTO) 1 % (0-10); EOSINOPHILS # (AUTO) 0.1 10^3/uL (0.0-0.3); EOSINOPHILS % (AUTO) 4 % (0-10); HEMATOCRIT 42 % (35-52); HEMOGLOBIN 14.3 G/DL (11.5-16.0); LYMPHOCYTES # (AUTO) 0.7 X 10^3 (1.0-4.0); LYMPHOCYTES % (AUTO) 25 % (12-44); MEAN CORPUSCULAR HEMOGLOBIN 31 PG (25-34); MEAN CORPUSCULAR HGB CONC 34 G/DL (32-36); MEAN CORPUSCULAR VOLUME 91 FL (80-99); MEAN PLATELET VOLUME 11.2 FL (7.4-10.4); MONOCYTES # (AUTO) 0.4 X 10^3 (0.0-1.0); MONOCYTES % (AUTO) 15 % (0-12); NEUTROPHILS # (AUTO) 1.5 X 10^3 (1.8-7.8); NEUTROPHILS % (AUTO) 55 % (42-75); PLATELET COUNT 154 10^3/uL (130-400); RED CELL DISTRIBUTION WIDTH 13.9 % (10.0-14.5); WHITE BLOOD COUNT 2.7 10^3/uL (4.3-11.0)
[2018-08-11 10:27] LABS: ALANINE AMINOTRANSFERASE 55 U/L (0-55); ALBUMIN 4.1 GM/DL (3.2-4.5); ALKALINE PHOSPHATASE 86 U/L (40-136); BILIRUBIN,TOTAL 0.7 MG/DL (0.1-1.0); BUN/CREATININE RATIO 19; CARBON DIOXIDE 26 MMOL/L (21-32); CHLORIDE 107 MMOL/L (98-107); GFR ESTIMATED > 60; GLUCOSE 100 MG/DL (70-105); POTASSIUM 4.4 MMOL/L (3.6-5.0); SODIUM 141 MMOL/L (135-145); TOTAL PROTEIN 6.4 GM/DL (6.4-8.2)
[2018-09-03 09:34] LABS: BASOPHILS % (AUTO) 1 % (0-10); EOSINOPHILS # (AUTO) 0.1 10^3/uL (0.0-0.3); EOSINOPHILS % (AUTO) 4 % (0-10); HEMATOCRIT 45 % (35-52); HEMOGLOBIN 14.7 G/DL (11.5-16.0); LYMPHOCYTES # (AUTO) 0.7 X 10^3 (1.0-4.0); LYMPHOCYTES % (AUTO) 22 % (12-44); MEAN CORPUSCULAR HEMOGLOBIN 30 PG (25-34); MEAN CORPUSCULAR HGB CONC 33 G/DL (32-36); MEAN CORPUSCULAR VOLUME 91 FL (80-99); MEAN PLATELET VOLUME 10.7 FL (7.4-10.4); MONOCYTES # (AUTO) 0.5 X 10^3 (0.0-1.0); MONOCYTES % (AUTO) 17 % (0-12); NEUTROPHILS # (AUTO) 1.8 X 10^3 (1.8-7.8); NEUTROPHILS % (AUTO) 57 % (42-75); PLATELET COUNT 157 10^3/uL (130-400); RED BLOOD COUNT 4.95 10^6/uL (4.35-5.85); RED CELL DISTRIBUTION WIDTH 13.6 % (10.0-14.5); WHITE BLOOD COUNT 3.1 10^3/uL (4.3-11.0)
[2018-09-03 09:56] LABS: ALBUMIN 4.2 GM/DL (3.2-4.5); BILIRUBIN,TOTAL 0.7 MG/DL (0.1-1.0); CALCIUM 9.8 MG/DL (8.5-10.1); CREATININE SERUM 0.98 MG/DL (0.60-1.30); POTASSIUM 3.8 MMOL/L (3.6-5.0); TOTAL PROTEIN 6.6 GM/DL (6.4-8.2)
[2018-10-04 10:16] LABS: BASOPHILS % (AUTO) 1 % (0-10); EOSINOPHILS # (AUTO) 0.2 10^3/uL (0.0-0.3); EOSINOPHILS % (AUTO) 7 % (0-10); HEMATOCRIT 42 % (35-52); HEMOGLOBIN 13.8 G/DL (11.5-16.0); LYMPHOCYTES # (AUTO) 0.6 X 10^3 (1.0-4.0); LYMPHOCYTES % (AUTO) 25 % (12-44); MEAN CORPUSCULAR HEMOGLOBIN 30 PG (25-34); MEAN CORPUSCULAR HGB CONC 33 G/DL (32-36); MEAN CORPUSCULAR VOLUME 91 FL (80-99); MONOCYTES # (AUTO) 0.4 X 10^3 (0.0-1.0); MONOCYTES % (AUTO) 16 % (0-12); NEUTROPHILS # (AUTO) 1.1 X 10^3 (1.8-7.8); NEUTROPHILS % (AUTO) 51 % (42-75); PLATELET COUNT 123 10^3/uL (130-400); RED BLOOD COUNT 4.56 10^6/uL (4.35-5.85); RED CELL DISTRIBUTION WIDTH 14.5 % (10.0-14.5); WHITE BLOOD COUNT 2.2 10^3/uL (4.3-11.0)
[2018-10-04 10:38] LABS: ALANINE AMINOTRANSFERASE 48 U/L (0-55); ALKALINE PHOSPHATASE 72 U/L (40-136); BILIRUBIN,TOTAL 0.6 MG/DL (0.1-1.0); BUN/CREATININE RATIO 18; CALCIUM 8.8 MG/DL (8.5-10.1); CARBON DIOXIDE 26 MMOL/L (21-32); CHLORIDE 109 MMOL/L (98-107); CREATININE SERUM 0.74 MG/DL (0.60-1.30); GFR ESTIMATED > 60; GLUCOSE 90 MG/DL (70-105); POTASSIUM 4.1 MMOL/L (3.6-5.0); SODIUM 142 MMOL/L (135-145); TOTAL PROTEIN 6.3 GM/DL (6.4-8.2)
[~2018-11-08 13:35] MED LIST changes: +ACID1TAB5 PO; +ACYC800T PO; +ALBU2.5V4 INH; +AMOX-358 PO; +APIX5TAB PO; -BORTEZOMIB 3.5 MG VELCADE SC SCH; +CALC-654 PO; +CHOL20002 PO; +CYCL1DRO OU; +DULO60CA58 PO; +Guaifenesin/Codeine PO; +LENA10CA PO; +LEVO125T6 PO; +LEVO750T39 PO; +MORP-34 PO; -NS IV 1000 ML (CANCER CTR) IV SCH; +PREG75CA PO; +RT-ALBUINH INH; +SULF-222 PO; +VITA1CAP PO
[2018-11-08 13:59] LABS: BASOPHILS % (AUTO) 1 % (0-10); EOSINOPHILS # (AUTO) 0.1 10^3/uL (0.0-0.3); EOSINOPHILS % (AUTO) 4 % (0-10); HEMATOCRIT 46 % (35-52); HEMOGLOBIN 15.1 G/DL (11.5-16.0); LYMPHOCYTES # (AUTO) 0.8 X 10^3 (1.0-4.0); LYMPHOCYTES % (AUTO) 22 % (12-44); MEAN CORPUSCULAR HEMOGLOBIN 29 PG (25-34); MEAN CORPUSCULAR HGB CONC 33 G/DL (32-36); MEAN CORPUSCULAR VOLUME 88 FL (80-99); MEAN PLATELET VOLUME 11.1 FL (7.4-10.4); MONOCYTES # (AUTO) 0.4 X 10^3 (0.0-1.0); MONOCYTES % (AUTO) 11 % (0-12); NEUTROPHILS # (AUTO) 2.3 X 10^3 (1.8-7.8); NEUTROPHILS % (AUTO) 63 % (42-75); PLATELET COUNT 233 10^3/uL (130-400); RED BLOOD COUNT 5.18 10^6/uL (4.35-5.85); RED CELL DISTRIBUTION WIDTH 14.4 % (10.0-14.5); WHITE BLOOD COUNT 3.6 10^3/uL (4.3-11.0)
[2018-11-08 14:32] LABS: ALANINE AMINOTRANSFERASE 37 U/L (0-55); ALBUMIN 4.3 GM/DL (3.2-4.5); ALKALINE PHOSPHATASE 81 U/L (40-136); BILIRUBIN,TOTAL 0.4 MG/DL (0.1-1.0); BUN/CREATININE RATIO 20; CALCIUM 9.9 MG/DL (8.5-10.1); CARBON DIOXIDE 23 MMOL/L (21-32); CHLORIDE 107 MMOL/L (98-107); CREATININE SERUM 0.81 MG/DL (0.60-1.30); GFR ESTIMATED > 60; GLUCOSE 89 MG/DL (70-105); POTASSIUM 4.7 MMOL/L (3.6-5.0); SODIUM 140 MMOL/L (135-145); TOTAL PROTEIN 7.8 GM/DL (6.4-8.2)
== END 2018-11-09 | disposition home or self-care (01) ==
LOC: ONC 13:35
PROVIDERS: ATTEND Internal Medicine Hematology & Oncology
DX: C90.00 Multiple myeloma not having achieved remission (principal); M84.58XA Pathological fracture in neoplastic disease, other specified site, initial encounter for fracture; L97.429 Non-pressure chronic ulcer of left heel and midfoot with unspecified severity; Z86.711 Personal history of pulmonary embolism; Z79.01 Long term (current) use of anticoagulants; Z79.891 Long term (current) use of opiate analgesic; Z79.899 Other long term (current) drug therapy; Z92.3 Personal history of irradiation
CPT/HCPCS: 36415; 80053; 82784; 83883; 84155; 84165; 85025; 96365

== ENCOUNTER → 2018-12-06 | Outpatient (CLI) | payer BC ==
[~2018-12-06] MED LIST changes: -ZOLEDRONIC ACID (CANCER CTR) 4 MG in NS (IVPB) CANCER CENTER 100 ML IV SCH
--- NOTE | 2018-12-06 14:14 | Diagnostic Imaging Report ---
PATIENT HISTORY: PNEUMONIA. TECHNIQUE: Two views of the chest. COMPARISON: 11/01/2018. FINDINGS: Lung volumes are normal. No focal consolidation is seen. Prominence of the central vascularity appears decreased compared to the prior exam. There is no pleural effusion or pneumothorax. The cardiac silhouette is stable in size. There is stable vertebra plana and focal kyphosis in the midthoracic spine. IMPRESSION: No acute pulmonary abnormality seen. Dictated by: Dictated on workstation # [id number]
== END ==
LOC: RAD 13:32
PROVIDERS: ATTEND Nurse Practitioner Family
DX: J18.9 Pneumonia, unspecified organism (principal)
CPT/HCPCS: 71046

== ENCOUNTER 2019-03-03 09:31 | Outpatient (RCR) | payer BC ==
[2018-12-07 10:33] LABS: BASOPHILS % (AUTO) 0 % (0-10); EOSINOPHILS # (AUTO) 0.1 10^3/uL (0.0-0.3); EOSINOPHILS % (AUTO) 5 % (0-10); HEMATOCRIT 43 % (35-52); HEMOGLOBIN 14.3 G/DL (11.5-16.0); LYMPHOCYTES # (AUTO) 0.6 X 10^3 (1.0-4.0); LYMPHOCYTES % (AUTO) 26 % (12-44); MEAN CORPUSCULAR HEMOGLOBIN 30 PG (25-34); MEAN CORPUSCULAR HGB CONC 33 G/DL (32-36); MEAN CORPUSCULAR VOLUME 89 FL (80-99); MEAN PLATELET VOLUME 10.8 FL (7.4-10.4); MONOCYTES # (AUTO) 0.3 X 10^3 (0.0-1.0); MONOCYTES % (AUTO) 13 % (0-12); NEUTROPHILS # (AUTO) 1.3 X 10^3 (1.8-7.8); NEUTROPHILS % (AUTO) 55 % (42-75); PLATELET COUNT 172 10^3/uL (130-400); RED CELL DISTRIBUTION WIDTH 15.8 % (10.0-14.5); WHITE BLOOD COUNT 2.4 10^3/uL (4.3-11.0)
[2018-12-07 10:54] LABS: ALANINE AMINOTRANSFERASE 67 U/L (0-55); ALBUMIN 4.1 GM/DL (3.2-4.5); ALKALINE PHOSPHATASE 111 U/L (40-136); BILIRUBIN,TOTAL 0.5 MG/DL (0.1-1.0); BUN/CREATININE RATIO 17; CALCIUM 9.2 MG/DL (8.5-10.1); CARBON DIOXIDE 23 MMOL/L (21-32); CHLORIDE 108 MMOL/L (98-107); CREATININE SERUM 0.83 MG/DL (0.60-1.30); GFR ESTIMATED > 60; GLUCOSE 70 MG/DL (70-105); SODIUM 142 MMOL/L (135-145); TOTAL PROTEIN 6.8 GM/DL (6.4-8.2)
[2019-01-04 11:20] LABS: BASOPHILS % (AUTO) 0 % (0-10); EOSINOPHILS # (AUTO) 0.2 10^3/uL (0.0-0.3); EOSINOPHILS % (AUTO) 7 % (0-10); HEMATOCRIT 41 % (35-52); HEMOGLOBIN 13.7 G/DL (11.5-16.0); LYMPHOCYTES # (AUTO) 0.6 X 10^3 (1.0-4.0); LYMPHOCYTES % (AUTO) 26 % (12-44); MEAN CORPUSCULAR HEMOGLOBIN 30 PG (25-34); MEAN CORPUSCULAR HGB CONC 33 G/DL (32-36); MEAN CORPUSCULAR VOLUME 90 FL (80-99); MEAN PLATELET VOLUME 10.6 FL (7.4-10.4); MONOCYTES # (AUTO) 0.5 X 10^3 (0.0-1.0); MONOCYTES % (AUTO) 21 % (0-12); NEUTROPHILS % (AUTO) 46 % (42-75); PLATELET COUNT 171 10^3/uL (130-400); RED CELL DISTRIBUTION WIDTH 15.4 % (10.0-14.5); WHITE BLOOD COUNT 2.2 10^3/uL (4.3-11.0)
[2019-01-04 11:38] LABS: ALANINE AMINOTRANSFERASE 32 U/L (0-55); ALBUMIN 4.2 GM/DL (3.2-4.5); ALKALINE PHOSPHATASE 91 U/L (40-136); BILIRUBIN,TOTAL 0.4 MG/DL (0.1-1.0); BUN/CREATININE RATIO 18; CALCIUM 9.6 MG/DL (8.5-10.1); CARBON DIOXIDE 25 MMOL/L (21-32); CHLORIDE 105 MMOL/L (98-107); GFR ESTIMATED > 60; GLUCOSE 92 MG/DL (70-105); SODIUM 140 MMOL/L (135-145)
[2019-02-03 14:12] LABS: BASOPHILS % (AUTO) 1 % (0-10); EOSINOPHILS # (AUTO) 0.2 10^3/uL (0.0-0.3); EOSINOPHILS % (AUTO) 7 % (0-10); HEMATOCRIT 42 % (35-52); HEMOGLOBIN 14.1 G/DL (11.5-16.0); LYMPHOCYTES # (AUTO) 0.8 X 10^3 (1.0-4.0); LYMPHOCYTES % (AUTO) 31 % (12-44); MEAN CORPUSCULAR HEMOGLOBIN 31 PG (25-34); MEAN CORPUSCULAR HGB CONC 34 G/DL (32-36); MEAN CORPUSCULAR VOLUME 91 FL (80-99); MEAN PLATELET VOLUME 11.2 FL (7.4-10.4); MONOCYTES # (AUTO) 0.5 X 10^3 (0.0-1.0); MONOCYTES % (AUTO) 19 % (0-12); NEUTROPHILS # (AUTO) 1.1 X 10^3 (1.8-7.8); NEUTROPHILS % (AUTO) 43 % (42-75); PLATELET COUNT 158 10^3/uL (130-400); RED CELL DISTRIBUTION WIDTH 16.1 % (10.0-14.5); WHITE BLOOD COUNT 2.6 10^3/uL (4.3-11.0)
[2019-02-03 14:39] LABS: ALANINE AMINOTRANSFERASE 51 U/L (0-55); ALBUMIN 4.2 GM/DL (3.2-4.5); ALKALINE PHOSPHATASE 77 U/L (40-136); BILIRUBIN,TOTAL 0.4 MG/DL (0.1-1.0); BUN/CREATININE RATIO 20; CALCIUM 9.6 MG/DL (8.5-10.1); CARBON DIOXIDE 24 MMOL/L (21-32); CHLORIDE 107 MMOL/L (98-107); CREATININE SERUM 0.81 MG/DL (0.60-1.30); GFR ESTIMATED > 60; GLUCOSE 94 MG/DL (70-105); SODIUM 141 MMOL/L (135-145); TOTAL PROTEIN 6.9 GM/DL (6.4-8.2)
[~2019-03-03 09:31] MED LIST changes: +ZOLEDRONIC ACID (CANCER CTR) 4 MG in NS (IVPB) CANCER CENTER 100 ML IV SCH
[2019-03-03 10:21] LABS: BASOPHILS % (AUTO) 1 % (0-10); EOSINOPHILS # (AUTO) 0.1 10^3/uL (0.0-0.3); EOSINOPHILS % (AUTO) 7 % (0-10); HEMATOCRIT 44 % (35-52); HEMOGLOBIN 14.4 G/DL (11.5-16.0); LYMPHOCYTES # (AUTO) 0.5 X 10^3 (1.0-4.0); LYMPHOCYTES % (AUTO) 23 % (12-44); MEAN CORPUSCULAR HEMOGLOBIN 30 PG (25-34); MEAN CORPUSCULAR HGB CONC 33 G/DL (32-36); MEAN CORPUSCULAR VOLUME 92 FL (80-99); MEAN PLATELET VOLUME 11.2 FL (7.4-10.4); MONOCYTES # (AUTO) 0.3 X 10^3 (0.0-1.0); MONOCYTES % (AUTO) 14 % (0-12); NEUTROPHILS # (AUTO) 1.1 X 10^3 (1.8-7.8); NEUTROPHILS % (AUTO) 55 % (42-75); PLATELET COUNT 128 10^3/uL (130-400); RED CELL DISTRIBUTION WIDTH 15.2 % (10.0-14.5)
[2019-03-03 10:45] LABS: ALANINE AMINOTRANSFERASE 55 U/L (0-55); ALBUMIN 3.9 GM/DL (3.2-4.5); ALKALINE PHOSPHATASE 72 U/L (40-136); BILIRUBIN,TOTAL 0.5 MG/DL (0.1-1.0); BUN/CREATININE RATIO 16; CALCIUM 8.9 MG/DL (8.5-10.1); CARBON DIOXIDE 24 MMOL/L (21-32); CHLORIDE 109 MMOL/L (98-107); CREATININE SERUM 0.74 MG/DL (0.60-1.30); GFR ESTIMATED > 60; GLUCOSE 79 MG/DL (70-105); SODIUM 145 MMOL/L (135-145); TOTAL PROTEIN 6.6 GM/DL (6.4-8.2)
== END 2019-03-07 | disposition home or self-care (01) ==
LOC: ONC 09:31
PROVIDERS: ATTEND Internal Medicine Hematology & Oncology
DX: C90.00 Multiple myeloma not having achieved remission (principal); M84.58XA Pathological fracture in neoplastic disease, other specified site, initial encounter for fracture; L97.429 Non-pressure chronic ulcer of left heel and midfoot with unspecified severity; Z86.711 Personal history of pulmonary embolism; Z79.01 Long term (current) use of anticoagulants; Z79.891 Long term (current) use of opiate analgesic; Z79.899 Other long term (current) drug therapy; Z92.3 Personal history of irradiation
CPT/HCPCS: 36415; 80053; 82232; 82306; 82784; 83883; 84155; 84165; 85025; 96365

== ENCOUNTER → 2019-03-30 | Outpatient (CLI) | payer BC ==
[~2019-03-30] MED LIST changes: -ZOLEDRONIC ACID (CANCER CTR) 4 MG in NS (IVPB) CANCER CENTER 100 ML IV SCH
--- NOTE | 2019-03-30 09:59 | Diagnostic Imaging Report ---
INDICATION: Pneumonia. EXAMINATION: Chest, PA and lateral. COMPARISON: 12/06/2018. FINDINGS: The heart is borderline in size. The mediastinal silhouette is unremarkable. There appears to be new infiltrate in the right medial base in the lower lobe which may represent an early pneumonia. The left lung is clear. There is no pneumothorax or pleural fluid. IMPRESSION: Early right basilar infiltrate, suspicious for pneumonia. Borderline cardiomegaly. Suggest followup as clinically warranted. Dictated by: Dictated on workstation # [id number]
== END ==
LOC: RAD FS 09:33
PROVIDERS: ATTEND Nurse Practitioner Family
DX: J18.9 Pneumonia, unspecified organism (principal); I51.7 Cardiomegaly
CPT/HCPCS: 71046

== ENCOUNTER 2019-06-15 14:31 | Outpatient (RCR) | payer BC ==
[2019-04-07 11:16] LABS: BASOPHILS % (AUTO) 1 % (0-10); EOSINOPHILS # (AUTO) 0.1 10^3/uL (0.0-0.3); EOSINOPHILS % (AUTO) 2 % (0-10); HEMATOCRIT 43 % (35-52); HEMOGLOBIN 14.5 G/DL (11.5-16.0); LYMPHOCYTES # (AUTO) 0.6 X 10^3 (1.0-4.0); LYMPHOCYTES % (AUTO) 22 % (12-44); MEAN CORPUSCULAR HEMOGLOBIN 31 PG (25-34); MEAN CORPUSCULAR HGB CONC 34 G/DL (32-36); MEAN CORPUSCULAR VOLUME 91 FL (80-99); MEAN PLATELET VOLUME 10.9 FL (7.4-10.4); MONOCYTES # (AUTO) 0.4 X 10^3 (0.0-1.0); MONOCYTES % (AUTO) 16 % (0-12); NEUTROPHILS # (AUTO) 1.7 X 10^3 (1.8-7.8); NEUTROPHILS % (AUTO) 60 % (42-75); PLATELET COUNT 156 10^3/uL (130-400); WHITE BLOOD COUNT 2.8 10^3/uL (4.3-11.0)
[2019-04-07 11:41] LABS: ALANINE AMINOTRANSFERASE 34 U/L (0-55); ALBUMIN 4.3 GM/DL (3.2-4.5); ALKALINE PHOSPHATASE 80 U/L (40-136); BILIRUBIN,TOTAL 0.6 MG/DL (0.1-1.0); BUN/CREATININE RATIO 20; CALCIUM 9.8 MG/DL (8.5-10.1); CARBON DIOXIDE 26 MMOL/L (21-32); CHLORIDE 106 MMOL/L (98-107); CREATININE SERUM 0.85 MG/DL (0.60-1.30); GFR ESTIMATED > 60; GLUCOSE 83 MG/DL (70-105); POTASSIUM 3.9 MMOL/L (3.6-5.0); SODIUM 142 MMOL/L (135-145); TOTAL PROTEIN 7.4 GM/DL (6.4-8.2)
[2019-05-02 14:10] LABS: BASOPHILS % (AUTO) 0 % (0-10); EOSINOPHILS # (AUTO) 0.1 10^3/uL (0.0-0.3); EOSINOPHILS % (AUTO) 4 % (0-10); HEMATOCRIT 41 % (35-52); HEMOGLOBIN 13.7 G/DL (11.5-16.0); LYMPHOCYTES # (AUTO) 0.6 X 10^3 (1.0-4.0); LYMPHOCYTES % (AUTO) 26 % (12-44); MEAN CORPUSCULAR HEMOGLOBIN 31 PG (25-34); MEAN CORPUSCULAR HGB CONC 33 G/DL (32-36); MEAN CORPUSCULAR VOLUME 92 FL (80-99); MEAN PLATELET VOLUME 11.6 FL (7.4-10.4); MONOCYTES # (AUTO) 0.2 X 10^3 (0.0-1.0); MONOCYTES % (AUTO) 10 % (0-12); NEUTROPHILS # (AUTO) 1.4 X 10^3 (1.8-7.8); NEUTROPHILS % (AUTO) 60 % (42-75); PLATELET COUNT 131 10^3/uL (130-400); RED CELL DISTRIBUTION WIDTH 15.1 % (10.0-14.5); WHITE BLOOD COUNT 2.4 10^3/uL (4.3-11.0)
[2019-05-02 14:27] LABS: ALANINE AMINOTRANSFERASE 52 U/L (0-55); ALBUMIN 4.1 GM/DL (3.2-4.5); ALKALINE PHOSPHATASE 92 U/L (40-136); BILIRUBIN,TOTAL 0.5 MG/DL (0.1-1.0); BUN/CREATININE RATIO 19; CALCIUM 9.6 MG/DL (8.5-10.1); CARBON DIOXIDE 28 MMOL/L (21-32); CHLORIDE 104 MMOL/L (98-107); CREATININE SERUM 0.93 MG/DL (0.60-1.30); GFR ESTIMATED > 60; GLUCOSE 104 MG/DL (70-105); POTASSIUM 3.7 MMOL/L (3.6-5.0); SODIUM 141 MMOL/L (135-145); TOTAL PROTEIN 6.7 GM/DL (6.4-8.2)
[~2019-06-15 14:31] MED LIST changes: -DULO60CA58 PO; +DULO60CA59 PO; +ZOLEDRONIC ACID (CANCER CTR) 4 MG in NS (IVPB) CANCER CENTER 100 ML IV SCH
[2019-06-15 14:50] LABS: BASOPHILS % (AUTO) 0 % (0-10); EOSINOPHILS # (AUTO) 0.1 10^3/uL (0.0-0.3); EOSINOPHILS % (AUTO) 3 % (0-10); HEMATOCRIT 42 % (35-52); HEMOGLOBIN 14.4 G/DL (11.5-16.0); LYMPHOCYTES # (AUTO) 0.6 X 10^3 (1.0-4.0); LYMPHOCYTES % (AUTO) 24 % (12-44); MEAN CORPUSCULAR HEMOGLOBIN 32 PG (25-34); MEAN CORPUSCULAR HGB CONC 34 G/DL (32-36); MEAN CORPUSCULAR VOLUME 93 FL (80-99); MEAN PLATELET VOLUME 11.4 FL (7.4-10.4); MONOCYTES # (AUTO) 0.2 X 10^3 (0.0-1.0); MONOCYTES % (AUTO) 10 % (0-12); NEUTROPHILS # (AUTO) 1.5 X 10^3 (1.8-7.8); NEUTROPHILS % (AUTO) 62 % (42-75); PLATELET COUNT 118 10^3/uL (130-400); RED CELL DISTRIBUTION WIDTH 15.2 % (10.0-14.5); WHITE BLOOD COUNT 2.4 10^3/uL (4.3-11.0)
[2019-06-15 15:12] LABS: ALANINE AMINOTRANSFERASE 24 U/L (0-55); ALBUMIN 4.1 GM/DL (3.2-4.5); ALKALINE PHOSPHATASE 71 U/L (40-136); BILIRUBIN,TOTAL 0.4 MG/DL (0.1-1.0); BUN/CREATININE RATIO 24; CALCIUM 9.4 MG/DL (8.5-10.1); CARBON DIOXIDE 27 MMOL/L (21-32); CHLORIDE 105 MMOL/L (98-107); CREATININE SERUM 0.79 MG/DL (0.60-1.30); GFR ESTIMATED > 60; GLUCOSE 103 MG/DL (70-105); POTASSIUM 4.3 MMOL/L (3.6-5.0); SODIUM 141 MMOL/L (135-145); TOTAL PROTEIN 6.8 GM/DL (6.4-8.2)
== END 2019-07-06 | disposition home or self-care (01) ==
LOC: ONC 14:31
PROVIDERS: ATTEND Internal Medicine Hematology & Oncology
DX: C90.00 Multiple myeloma not having achieved remission (principal); M84.58XA Pathological fracture in neoplastic disease, other specified site, initial encounter for fracture; L97.429 Non-pressure chronic ulcer of left heel and midfoot with unspecified severity; Z86.711 Personal history of pulmonary embolism; Z79.01 Long term (current) use of anticoagulants; Z79.891 Long term (current) use of opiate analgesic; Z79.899 Other long term (current) drug therapy; Z92.3 Personal history of irradiation
CPT/HCPCS: 36415; 80053; 82232; 82784; 83883; 84155; 84165; 85025; 96365

== ENCOUNTER 2019-09-06 10:15 | Outpatient (RCR) | payer BC ==
[2019-07-07 15:18] LABS: BASOPHILS % (AUTO) 1 % (0-10); EOSINOPHILS # (AUTO) 0.1 10^3/uL (0.0-0.3); EOSINOPHILS % (AUTO) 6 % (0-10); HEMATOCRIT 43 % (35-52); HEMOGLOBIN 14.5 G/DL (11.5-16.0); LYMPHOCYTES # (AUTO) 0.7 X 10^3 (1.0-4.0); LYMPHOCYTES % (AUTO) 36 % (12-44); MEAN CORPUSCULAR HEMOGLOBIN 32 PG (25-34); MEAN CORPUSCULAR HGB CONC 34 G/DL (32-36); MEAN CORPUSCULAR VOLUME 93 FL (80-99); MEAN PLATELET VOLUME 11.2 FL (7.4-10.4); MONOCYTES # (AUTO) 0.3 X 10^3 (0.0-1.0); MONOCYTES % (AUTO) 15 % (0-12); NEUTROPHILS # (AUTO) 0.8 X 10^3 (1.8-7.8); NEUTROPHILS % (AUTO) 42 % (42-75); PLATELET COUNT 125 10^3/uL (130-400); RED CELL DISTRIBUTION WIDTH 14.9 % (10.0-14.5); WHITE BLOOD COUNT 1.8 10^3/uL (4.3-11.0)
[2019-07-07 15:37] LABS: ALANINE AMINOTRANSFERASE 33 U/L (0-55); ALBUMIN 4.1 GM/DL (3.2-4.5); ALKALINE PHOSPHATASE 64 U/L (40-136); BILIRUBIN,TOTAL 0.6 MG/DL (0.1-1.0); BUN/CREATININE RATIO 25; CARBON DIOXIDE 28 MMOL/L (21-32); CHLORIDE 108 MMOL/L (98-107); CREATININE SERUM 0.84 MG/DL (0.60-1.30); GFR ESTIMATED > 60; GLUCOSE 98 MG/DL (70-105); POTASSIUM 3.9 MMOL/L (3.6-5.0); SODIUM 143 MMOL/L (135-145); TOTAL PROTEIN 6.6 GM/DL (6.4-8.2)
[2019-08-08 16:03] LABS: BASOPHILS % (AUTO) 1 % (0-10); EOSINOPHILS # (AUTO) 0.1 10^3/uL (0.0-0.3); EOSINOPHILS % (AUTO) 5 % (0-10); HEMATOCRIT 40 % (35-52); HEMOGLOBIN 13.8 G/DL (11.5-16.0); LYMPHOCYTES # (AUTO) 0.7 X 10^3 (1.0-4.0); LYMPHOCYTES % (AUTO) 32 % (12-44); MEAN CORPUSCULAR HEMOGLOBIN 32 PG (25-34); MEAN CORPUSCULAR HGB CONC 35 G/DL (32-36); MEAN CORPUSCULAR VOLUME 94 FL (80-99); MONOCYTES # (AUTO) 0.3 X 10^3 (0.0-1.0); MONOCYTES % (AUTO) 15 % (0-12); NEUTROPHILS % (AUTO) 47 % (42-75); PLATELET COUNT 133 10^3/uL (130-400); RED CELL DISTRIBUTION WIDTH 14.6 % (10.0-14.5); WHITE BLOOD COUNT 2.1 10^3/uL (4.3-11.0)
[2019-08-08 16:27] LABS: ALANINE AMINOTRANSFERASE 40 U/L (0-55); ALKALINE PHOSPHATASE 72 U/L (40-136); BILIRUBIN,TOTAL 0.5 MG/DL (0.1-1.0); BUN/CREATININE RATIO 20; CALCIUM 8.7 MG/DL (8.5-10.1); CARBON DIOXIDE 25 MMOL/L (21-32); CHLORIDE 111 MMOL/L (98-107); CREATININE SERUM 0.82 MG/DL (0.60-1.30); GFR ESTIMATED > 60; GLUCOSE 132 MG/DL (70-105); POTASSIUM 3.8 MMOL/L (3.6-5.0); SODIUM 144 MMOL/L (135-145); TOTAL PROTEIN 6.6 GM/DL (6.4-8.2)
[2019-09-06 10:38] LABS: BASOPHILS % (AUTO) 1 % (0-10); EOSINOPHILS # (AUTO) 0.1 10^3/uL (0.0-0.3); EOSINOPHILS % (AUTO) 4 % (0-10); HEMATOCRIT 42 % (35-52); HEMOGLOBIN 14.1 G/DL (11.5-16.0); LYMPHOCYTES # (AUTO) 0.6 X 10^3 (1.0-4.0); LYMPHOCYTES % (AUTO) 20 % (12-44); MEAN CORPUSCULAR HEMOGLOBIN 32 PG (25-34); MEAN CORPUSCULAR HGB CONC 34 G/DL (32-36); MEAN CORPUSCULAR VOLUME 95 FL (80-99); MEAN PLATELET VOLUME 10.4 FL (7.4-10.4); MONOCYTES # (AUTO) 0.6 X 10^3 (0.0-1.0); MONOCYTES % (AUTO) 21 % (0-12); NEUTROPHILS # (AUTO) 1.6 X 10^3 (1.8-7.8); NEUTROPHILS % (AUTO) 54 % (42-75); PLATELET COUNT 121 10^3/uL (130-400); RED CELL DISTRIBUTION WIDTH 13.9 % (10.0-14.5)
[2019-09-06 10:59] LABS: ALBUMIN 4.1 GM/DL (3.2-4.5); BILIRUBIN,TOTAL 0.5 MG/DL (0.1-1.0); CALCIUM 8.9 MG/DL (8.5-10.1); CREATININE SERUM 0.94 MG/DL (0.60-1.30); POTASSIUM 3.7 MMOL/L (3.6-5.0); TOTAL PROTEIN 6.9 GM/DL (6.4-8.2)
== END 2019-10-05 | disposition home or self-care (01) ==
LOC: ONC 10:15
PROVIDERS: ATTEND Internal Medicine Hematology & Oncology
DX: C90.00 Multiple myeloma not having achieved remission (principal); M84.58XA Pathological fracture in neoplastic disease, other specified site, initial encounter for fracture; L97.429 Non-pressure chronic ulcer of left heel and midfoot with unspecified severity; Z86.711 Personal history of pulmonary embolism; Z79.01 Long term (current) use of anticoagulants; Z79.891 Long term (current) use of opiate analgesic; Z79.899 Other long term (current) drug therapy; Z92.3 Personal history of irradiation
CPT/HCPCS: 36415; 80053; 82232; 82784; 83883; 84155; 84165; 85025; 96365; 99213

== ENCOUNTER → 2019-09-19 | Outpatient (CLI) | payer BC ==
[~2019-09-19] MED LIST changes: -ZOLEDRONIC ACID (CANCER CTR) 4 MG in NS (IVPB) CANCER CENTER 100 ML IV SCH
--- NOTE | 2019-09-19 17:56 | Diagnostic Imaging Report ---
INDICATION: Productive cough. PA and lateral views of the chest are obtained. Comparison is made to study of 03/30/2019. FINDINGS: Overall heart size and pulmonary vascularity are within normal limits. There is air trapping bilaterally. There has been mild increase in basilar atelectasis. No significant pleural fluid is seen. IMPRESSION: Mild basilar atelectasis, slightly increased from previous study. Otherwise, there is no significant change detected. Dictated by: Dictated on workstation # [id number]
== END ==
LOC: RAD FS 14:31
PROVIDERS: ATTEND Nurse Practitioner Family
DX: J98.11 Atelectasis (principal)
CPT/HCPCS: 71046

== ENCOUNTER → 2019-12-05 | Outpatient (CLI) | payer BC ==
[~2019-12-05] MED LIST changes: -MORP-34 PO; +MORP-69 PO
--- NOTE | 2019-12-05 15:34 | Diagnostic Imaging Report ---
INDICATION: Cough. TIME OF EXAM: 3:29 PM COMPARISON: Correlation is made with prior chest from 09/19/2019. FINDINGS: Heart size is normal. There is some questionable minimal infiltrate in left mid lung. Right lung is fairly clear. No significant effusion is seen. There is no pneumothorax. IMPRESSION: Questionable mid left lung infiltrate. No other significant abnormality is seen. Dictated by: Dictated on workstation # [id number]
== END ==
LOC: RAD 14:59
PROVIDERS: ATTEND Internal Medicine
DX: R05 Cough (principal)
CPT/HCPCS: 71045

== ENCOUNTER 2019-12-26 13:14 | Outpatient (RCR) | payer BC ==
[2019-10-11 14:06] LABS: BASOPHILS % (AUTO) 0 % (0-10); EOSINOPHILS # (AUTO) 0.2 10^3/uL (0.0-0.3); EOSINOPHILS % (AUTO) 8 % (0-10); HEMATOCRIT 42 % (35-52); HEMOGLOBIN 14.2 G/DL (11.5-16.0); LYMPHOCYTES # (AUTO) 0.5 X 10^3 (1.0-4.0); LYMPHOCYTES % (AUTO) 22 % (12-44); MEAN CORPUSCULAR HEMOGLOBIN 32 PG (25-34); MEAN CORPUSCULAR HGB CONC 34 G/DL (32-36); MEAN CORPUSCULAR VOLUME 95 FL (80-99); MEAN PLATELET VOLUME 11.1 FL (7.4-10.4); MONOCYTES # (AUTO) 0.5 X 10^3 (0.0-1.0); MONOCYTES % (AUTO) 19 % (0-12); NEUTROPHILS # (AUTO) 1.2 X 10^3 (1.8-7.8); NEUTROPHILS % (AUTO) 51 % (42-75); PLATELET COUNT 114 10^3/uL (130-400); RED CELL DISTRIBUTION WIDTH 13.8 % (10.0-14.5); WHITE BLOOD COUNT 2.4 10^3/uL (4.3-11.0)
[2019-10-11 14:29] LABS: ALBUMIN 4.1 GM/DL (3.2-4.5); BILIRUBIN,TOTAL 0.4 MG/DL (0.1-1.0); CALCIUM 9.2 MG/DL (8.5-10.1); CREATININE SERUM 1.04 MG/DL (0.60-1.30); POTASSIUM 3.8 MMOL/L (3.6-5.0); TOTAL PROTEIN 6.6 GM/DL (6.4-8.2)
[2019-11-16 13:35] LABS: BASOPHILS % (AUTO) 0 % (0-10); EOSINOPHILS # (AUTO) 0.2 10^3/uL (0.0-0.3); EOSINOPHILS % (AUTO) 8 % (0-10); HEMATOCRIT 42 % (35-52); HEMOGLOBIN 14.1 G/DL (11.5-16.0); LYMPHOCYTES # (AUTO) 0.6 X 10^3 (1.0-4.0); LYMPHOCYTES % (AUTO) 23 % (12-44); MEAN CORPUSCULAR HEMOGLOBIN 32 PG (25-34); MEAN CORPUSCULAR HGB CONC 34 G/DL (32-36); MEAN CORPUSCULAR VOLUME 94 FL (80-99); MEAN PLATELET VOLUME 10.9 FL (7.4-10.4); MONOCYTES # (AUTO) 0.4 X 10^3 (0.0-1.0); MONOCYTES % (AUTO) 15 % (0-12); NEUTROPHILS # (AUTO) 1.3 X 10^3 (1.8-7.8); NEUTROPHILS % (AUTO) 54 % (42-75); PLATELET COUNT 108 10^3/uL (130-400); RED CELL DISTRIBUTION WIDTH 13.8 % (10.0-14.5); WHITE BLOOD COUNT 2.5 10^3/uL (4.3-11.0)
[2019-11-16 13:58] LABS: BILIRUBIN,TOTAL 0.6 MG/DL (0.1-1.0); CALCIUM 9.2 MG/DL (8.5-10.1); CREATININE SERUM 1.03 MG/DL (0.60-1.30); TOTAL PROTEIN 6.6 GM/DL (6.4-8.2)
[~2019-12-26 13:14] MED LIST changes: +ZOLEDRONIC ACID (CANCER CTR) 3.5 MG in NS (IVPB) CANCER CENTER 100 ML IV SCH
[2019-12-26 14:00] LABS: BASOPHILS % (AUTO) 1 % (0-10); EOSINOPHILS # (AUTO) 0.1 10^3/uL (0.0-0.3); EOSINOPHILS % (AUTO) 4 % (0-10); HEMATOCRIT 42 % (35-52); HEMOGLOBIN 14.1 G/DL (11.5-16.0); LYMPHOCYTES # (AUTO) 0.5 X 10^3 (1.0-4.0); LYMPHOCYTES % (AUTO) 20 % (12-44); MEAN CORPUSCULAR HEMOGLOBIN 31 PG (25-34); MEAN CORPUSCULAR HGB CONC 34 G/DL (32-36); MEAN CORPUSCULAR VOLUME 93 FL (80-99); MEAN PLATELET VOLUME 11.3 FL (7.4-10.4); MONOCYTES # (AUTO) 0.4 X 10^3 (0.0-1.0); MONOCYTES % (AUTO) 17 % (0-12); NEUTROPHILS # (AUTO) 1.3 X 10^3 (1.8-7.8); NEUTROPHILS % (AUTO) 58 % (42-75); PLATELET COUNT 110 10^3/uL (130-400); RED CELL DISTRIBUTION WIDTH 14.8 % (10.0-14.5); WHITE BLOOD COUNT 2.2 10^3/uL (4.3-11.0)
[2019-12-26 14:21] LABS: ALANINE AMINOTRANSFERASE 57 U/L (0-55); ALKALINE PHOSPHATASE 73 U/L (40-136); BILIRUBIN,TOTAL 0.3 MG/DL (0.1-1.0); BUN/CREATININE RATIO 18; CALCIUM 9.2 MG/DL (8.5-10.1); CARBON DIOXIDE 24 MMOL/L (21-32); CHLORIDE 109 MMOL/L (98-107); CREATININE SERUM 0.83 MG/DL (0.60-1.30); GFR ESTIMATED > 60; GLUCOSE 103 MG/DL (70-105); SODIUM 142 MMOL/L (135-145); TOTAL PROTEIN 6.6 GM/DL (6.4-8.2)
== END 2020-01-09 | disposition home or self-care (01) ==
LOC: ONC 13:14
PROVIDERS: ATTEND Internal Medicine Hematology & Oncology
DX: C90.00 Multiple myeloma not having achieved remission (principal); M84.58XA Pathological fracture in neoplastic disease, other specified site, initial encounter for fracture; L97.429 Non-pressure chronic ulcer of left heel and midfoot with unspecified severity; Z86.711 Personal history of pulmonary embolism; Z79.01 Long term (current) use of anticoagulants; Z79.891 Long term (current) use of opiate analgesic; Z79.899 Other long term (current) drug therapy; Z92.3 Personal history of irradiation
CPT/HCPCS: 36415; 80053; 82232; 82784; 83883; 84155; 84165; 85025; 96374; 99213

== ENCOUNTER → 2020-01-03 | Outpatient (CLI) | payer BC ==
[~2020-01-03] MED LIST changes: -ZOLEDRONIC ACID (CANCER CTR) 3.5 MG in NS (IVPB) CANCER CENTER 100 ML IV SCH
--- NOTE | 2020-01-03 11:38 | Diagnostic Imaging Report ---
INDICATION: Screening for osteoporosis. TECHNIQUE: The bone mineral density of the hips and spine was measured. COMPARISON: There are no prior studies available for comparison. FINDINGS: The T-score for the spine is -2.1. This does fall within the range of osteopenia. The T-score for the left femoral neck is -1.1 and for the right femoral neck is -1.3. These values also indicate osteopenia. However, the total T-score for the left hip is 0.0 and for the right hip is -0.4. These values are within the range of normal. IMPRESSION: AP Spine L1-L4: [BMD (g/cm2): 0.952] [T-Score: -2.1] [Z-Score: -0.9] [BMD Previous: na] [BMD % Change: na] LT Hip Neck: [BMD (g/cm2): 0.879] [T-Score: -1.1] [Z-Score: 0.0] LT Hip Total: [BMD (g/cm2):1.002] [T-Score:0.0] [Z-Score: 0.8] [BMD Previous: na] [BMD % Change: na] RT Hip Neck: [BMD (g/cm2):0.859] [T-Score:-1.3] [Z-Score:-0.1] RT Hip Total: [BMD (g/cm2):0.952] [T-score:-0.4] [Z-Score:0.4] [BMD Previous:na] [BMD % Change:na] *Indicates significant change from prior examination based on 95% confidence level. World Health Organization criteria for BMD interpretation classify patients as Normal (T-score at or above -1.0), Osteopenic (T-score between -1.0 and -2.5) or Osteoporotic (T-score at or below -2.5). LIMITATIONS AND MODIFICATION: None. FRACTURE RISK (FRAX SCORE): The ten year probability of (%): Major Osteoporotic Fracture: [8.5] Hip Fracture: [0.8] IMPRESSION: 1. There is osteopenia of the spine and of both femoral necks. 2. The total T-scores for the hips are within normal limits. 3. See below National Osteoporosis Foundation guidelines on when to potentially initiate pharmacologic therapy. Based on the National Osteoporosis Foundation Guidelines, pharmacologic treatment should be initiated in any of the following, unless clinical conditions suggest otherwise: * Any patient with prior fragility fracture of the hip or vertebrae. A spine fracture indicates 5X risk for subsequent spine fracture and 2X risk for subsequent hip fracture. * Osteoporosis (T-score <-2.5). * Postmenopausal women and men age 50 and older with low bone mass/osteopenia (T-score between -1.0 and -2.5) by DXA and 10-year major osteoporotic fracture greater than 20% or a 10-year probability of hip fracture greater than 3%. These fracture risks are supplied above in the FRAX score, if applicable. * Clinician judgement and/or patient preferences may indicate treatment for people with 10-year fracture probabilities above or below these levels. Dictated by: Dictated on workstation # [id number]
== END ==
LOC: RAD 10:07
PROVIDERS: ATTEND Internal Medicine
DX: Z13.820 Encounter for screening for osteoporosis (principal); Z12.31 Encounter for screening mammogram for malignant neoplasm of breast; M85.88 Other specified disorders of bone density and structure, other site
CPT/HCPCS: 77067; 77080

== ENCOUNTER 2020-03-27 12:54 | Outpatient (RCR) | payer BC ==
[2020-01-23 14:19] LABS: BASOPHILS % (AUTO) 0 % (0-10); EOSINOPHILS # (AUTO) 0.2 10^3/uL (0.0-0.3); EOSINOPHILS % (AUTO) 6 % (0-10); HEMATOCRIT 42 % (35-52); HEMOGLOBIN 14.1 G/DL (11.5-16.0); LYMPHOCYTES # (AUTO) 0.7 X 10^3 (1.0-4.0); LYMPHOCYTES % (AUTO) 21 % (12-44); MEAN CORPUSCULAR HEMOGLOBIN 31 PG (25-34); MEAN CORPUSCULAR HGB CONC 34 G/DL (32-36); MEAN CORPUSCULAR VOLUME 92 FL (80-99); MEAN PLATELET VOLUME 11.4 FL (7.4-10.4); MONOCYTES # (AUTO) 0.5 X 10^3 (0.0-1.0); MONOCYTES % (AUTO) 17 % (0-12); NEUTROPHILS # (AUTO) 1.8 X 10^3 (1.8-7.8); NEUTROPHILS % (AUTO) 56 % (42-75); PLATELET COUNT 117 10^3/uL (130-400); WHITE BLOOD COUNT 3.2 10^3/uL (4.3-11.0)
[2020-01-23 14:40] LABS: ALANINE AMINOTRANSFERASE 50 U/L (0-55); ALBUMIN 4.2 GM/DL (3.2-4.5); ALKALINE PHOSPHATASE 71 U/L (40-136); BILIRUBIN,TOTAL 0.6 MG/DL (0.1-1.0); BUN/CREATININE RATIO 22; CALCIUM 9.3 MG/DL (8.5-10.1); CARBON DIOXIDE 24 MMOL/L (21-32); CHLORIDE 106 MMOL/L (98-107); CREATININE SERUM 0.89 MG/DL (0.60-1.30); GFR ESTIMATED > 60; GLUCOSE 102 MG/DL (70-105); POTASSIUM 3.6 MMOL/L (3.6-5.0); SODIUM 141 MMOL/L (135-145)
[2020-02-20 15:13] LABS: BASOPHILS % (AUTO) 0 % (0-10); EOSINOPHILS # (AUTO) 0.2 10^3/uL (0.0-0.3); EOSINOPHILS % (AUTO) 6 % (0-10); HEMATOCRIT 44 % (35-52); HEMOGLOBIN 15.2 G/DL (11.5-16.0); LYMPHOCYTES # (AUTO) 0.7 X 10^3 (1.0-4.0); LYMPHOCYTES % (AUTO) 23 % (12-44); MEAN CORPUSCULAR HEMOGLOBIN 32 PG (25-34); MEAN CORPUSCULAR HGB CONC 35 G/DL (32-36); MEAN CORPUSCULAR VOLUME 91 FL (80-99); MEAN PLATELET VOLUME 11.2 FL (7.4-10.4); MONOCYTES # (AUTO) 0.6 X 10^3 (0.0-1.0); MONOCYTES % (AUTO) 20 % (0-12); NEUTROPHILS # (AUTO) 1.6 X 10^3 (1.8-7.8); NEUTROPHILS % (AUTO) 50 % (42-75); PLATELET COUNT 124 10^3/uL (130-400); RED CELL DISTRIBUTION WIDTH 14.7 % (10.0-14.5); WHITE BLOOD COUNT 3.2 10^3/uL (4.3-11.0)
[2020-02-20 15:33] LABS: ALANINE AMINOTRANSFERASE 35 U/L (0-55); ALBUMIN 4.1 GM/DL (3.2-4.5); ALKALINE PHOSPHATASE 67 U/L (40-136); BILIRUBIN,TOTAL 0.5 MG/DL (0.1-1.0); BUN/CREATININE RATIO 23; CALCIUM 9.2 MG/DL (8.5-10.1); CARBON DIOXIDE 26 MMOL/L (21-32); CHLORIDE 106 MMOL/L (98-107); CREATININE SERUM 0.84 MG/DL (0.60-1.30); GFR ESTIMATED > 60; GLUCOSE 96 MG/DL (70-105); POTASSIUM 3.8 MMOL/L (3.6-5.0); SODIUM 141 MMOL/L (135-145); TOTAL PROTEIN 7.2 GM/DL (6.4-8.2)
[~2020-03-27 12:54] MED LIST changes: +ZOLEDRONIC ACID (CANCER CTR) 3.5 MG in NS (IVPB) CANCER CENTER 100 ML IV SCH
[2020-03-27 13:39] LABS: BASOPHILS % (AUTO) 0 % (0-10); EOSINOPHILS # (AUTO) 0.1 10^3/uL (0.0-0.3); EOSINOPHILS % (AUTO) 4 % (0-10); HEMATOCRIT 40 % (35-52); HEMOGLOBIN 13.9 G/DL (11.5-16.0); LYMPHOCYTES # (AUTO) 0.8 X 10^3 (1.0-4.0); LYMPHOCYTES % (AUTO) 32 % (12-44); MEAN CORPUSCULAR HEMOGLOBIN 31 PG (25-34); MEAN CORPUSCULAR HGB CONC 34 G/DL (32-36); MEAN CORPUSCULAR VOLUME 91 FL (80-99); MEAN PLATELET VOLUME 10.6 FL (7.4-10.4); MONOCYTES # (AUTO) 0.4 X 10^3 (0.0-1.0); MONOCYTES % (AUTO) 16 % (0-12); NEUTROPHILS # (AUTO) 1.1 X 10^3 (1.8-7.8); NEUTROPHILS % (AUTO) 48 % (42-75); PLATELET COUNT 127 10^3/uL (130-400); RED CELL DISTRIBUTION WIDTH 13.9 % (10.0-14.5); WHITE BLOOD COUNT 2.3 10^3/uL (4.3-11.0)
[2020-03-27 13:46] LABS: ALBUMIN 3.8 GM/DL (3.2-4.5); BILIRUBIN,TOTAL 0.5 MG/DL (0.1-1.0); CALCIUM 8.5 MG/DL (8.5-10.1); CREATININE SERUM 0.97 MG/DL (0.60-1.30); POTASSIUM 3.9 MMOL/L (3.6-5.0); TOTAL PROTEIN 6.6 GM/DL (6.4-8.2)
== END 2020-04-22 | disposition home or self-care (01) ==
LOC: ONC 12:54
PROVIDERS: ATTEND Internal Medicine Hematology & Oncology
DX: C90.00 Multiple myeloma not having achieved remission (principal); M84.58XA Pathological fracture in neoplastic disease, other specified site, initial encounter for fracture; L97.429 Non-pressure chronic ulcer of left heel and midfoot with unspecified severity; Z86.711 Personal history of pulmonary embolism; Z79.01 Long term (current) use of anticoagulants; Z79.891 Long term (current) use of opiate analgesic; Z79.899 Other long term (current) drug therapy; Z92.3 Personal history of irradiation; Z92.21 Personal history of antineoplastic chemotherapy
CPT/HCPCS: 80053; 82232; 82784 ×3; 83883; 84165; 85025; G0463; 36415; 82306; 84155; 96365; 99213

== ENCOUNTER → 2020-04-03 | Outpatient (CLI) | payer BC ==
[~2020-04-03] MED LIST changes: -ZOLEDRONIC ACID (CANCER CTR) 3.5 MG in NS (IVPB) CANCER CENTER 100 ML IV SCH
--- NOTE | 2020-04-03 14:03 | Diagnostic Imaging Report ---
EXAMINATION: WHOLE BODY PET/CT. INDICATION: Multiple myeloma. EXAMINATION: After intravenous administration of 15.62 mCi of F18-FDG in the left hand, a series of overlapping emission and transmission PET images was obtained. In the coronal, transaxial and sagittal planes, the area imaged extended from the skull base through the upper thighs. The lower extremities were also included on this exam. PATIENT HEIGHT: 5' 7". WEIGHT: 170 pounds. BLOOD GLUCOSE LEVEL: 101. COMPARISON: There are no prior PET/CT examinations available for comparison. FINDINGS: There is no hypermetabolic activity to suggest the presence of malignancy. There is physiologic activity within the brain, heart, kidneys, bowel, and bladder. The CT images do show that there is a small amount of fluid in each lung base. There is no sign of pneumonia or failure, however. Also, the liver does appear to be enlarged measuring approximately 23 cm in length. There is no focal abnormality involving the liver. There is no acute abnormality identified. IMPRESSION: 1. There is no hypermetabolic activity to suggest neoplastic disease. 2. There is a small amount of nonspecific free fluid in each lung base. 3. There is hepatomegaly. Dictated by: Dictated on workstation # [id number]
== END ==
LOC: RAD 10:03
PROVIDERS: ATTEND Internal Medicine Hematology & Oncology
DX: C90.00 Multiple myeloma not having achieved remission (principal); R16.0 Hepatomegaly, not elsewhere classified

== ENCOUNTER → 2020-06-18 | Outpatient (CLI) | payer BC ==
--- NOTE | 2020-06-19 14:13 | NUR ---
Notified patient and the [facility] dept that patient is positive for COVID. Explained quarantine and answered questions. No other needs. Patient states she is asymptomatic.
== END ==
LOC: LAB FS 10:20
PROVIDERS: ATTEND Emergency Medicine
DX: U07.1 COVID-19 (principal)
CPT/HCPCS: 87635

== ENCOUNTER 2020-07-30 10:21 | Outpatient (RCR) | payer BC ==
[2020-05-02 15:04] LABS: BASOPHILS % (AUTO) 1 % (0-10); EOSINOPHILS # (AUTO) 0.1 10^3/uL (0.0-0.3); EOSINOPHILS % (AUTO) 3 % (0-10); HEMATOCRIT 43 % (35-52); HEMOGLOBIN 14.8 G/DL (11.5-16.0); LYMPHOCYTES # (AUTO) 0.6 X 10^3 (1.0-4.0); LYMPHOCYTES % (AUTO) 25 % (12-44); MEAN CORPUSCULAR HEMOGLOBIN 31 PG (25-34); MEAN CORPUSCULAR HGB CONC 35 G/DL (32-36); MEAN CORPUSCULAR VOLUME 91 FL (80-99); MONOCYTES # (AUTO) 0.3 X 10^3 (0.0-1.0); MONOCYTES % (AUTO) 12 % (0-12); NEUTROPHILS # (AUTO) 1.5 X 10^3 (1.8-7.8); NEUTROPHILS % (AUTO) 58 % (42-75); PLATELET COUNT 116 10^3/uL (130-400); WHITE BLOOD COUNT 2.5 10^3/uL (4.3-11.0)
[2020-05-02 15:22] LABS: BILIRUBIN,TOTAL 0.7 MG/DL (0.1-1.0); CREATININE SERUM 0.94 MG/DL (0.60-1.30); POTASSIUM 3.5 MMOL/L (3.6-5.0); TOTAL PROTEIN 6.9 GM/DL (6.4-8.2)
[2020-05-31 14:21] LABS: BASOPHILS % (AUTO) 1 % (0-10); EOSINOPHILS # (AUTO) 0.1 10^3/uL (0.0-0.3); EOSINOPHILS % (AUTO) 4 % (0-10); HEMATOCRIT 42 % (35-52); HEMOGLOBIN 14.2 G/DL (11.5-16.0); LYMPHOCYTES # (AUTO) 0.6 X 10^3 (1.0-4.0); LYMPHOCYTES % (AUTO) 27 % (12-44); MEAN CORPUSCULAR HEMOGLOBIN 31 PG (25-34); MEAN CORPUSCULAR HGB CONC 34 G/DL (32-36); MEAN CORPUSCULAR VOLUME 92 FL (80-99); MEAN PLATELET VOLUME 11.4 FL (7.4-10.4); MONOCYTES # (AUTO) 0.3 X 10^3 (0.0-1.0); MONOCYTES % (AUTO) 13 % (0-12); NEUTROPHILS # (AUTO) 1.3 X 10^3 (1.8-7.8); NEUTROPHILS % (AUTO) 55 % (42-75); PLATELET COUNT 122 10^3/uL (130-400); WHITE BLOOD COUNT 2.3 10^3/uL (4.3-11.0)
[2020-05-31 14:43] LABS: ALANINE AMINOTRANSFERASE 37 U/L (0-55); ALKALINE PHOSPHATASE 80 U/L (40-136); BILIRUBIN,TOTAL 0.6 MG/DL (0.1-1.0); BUN/CREATININE RATIO 21; CALCIUM 8.8 MG/DL (8.5-10.1); CARBON DIOXIDE 25 MMOL/L (21-32); CHLORIDE 107 MMOL/L (98-107); CREATININE SERUM 0.91 MG/DL (0.60-1.30); GFR ESTIMATED > 60; GLUCOSE 93 MG/DL (70-105); POTASSIUM 4.2 MMOL/L (3.6-5.0); SODIUM 140 MMOL/L (135-145)
[2020-07-05 10:47] LABS: BASOPHILS % (AUTO) 1 % (0-10); EOSINOPHILS # (AUTO) 0.1 10^3/uL (0.0-0.3); EOSINOPHILS % (AUTO) 2 % (0-10); HEMATOCRIT 43 % (35-52); HEMOGLOBIN 14.7 G/DL (11.5-16.0); LYMPHOCYTES # (AUTO) 0.7 X 10^3 (1.0-4.0); LYMPHOCYTES % (AUTO) 18 % (12-44); MEAN CORPUSCULAR HEMOGLOBIN 31 PG (25-34); MEAN CORPUSCULAR HGB CONC 34 G/DL (32-36); MEAN CORPUSCULAR VOLUME 92 FL (80-99); MEAN PLATELET VOLUME 11.3 FL (7.4-10.4); MONOCYTES # (AUTO) 0.5 X 10^3 (0.0-1.0); MONOCYTES % (AUTO) 13 % (0-12); NEUTROPHILS # (AUTO) 2.5 X 10^3 (1.8-7.8); NEUTROPHILS % (AUTO) 67 % (42-75); PLATELET COUNT 123 10^3/uL (130-400); WHITE BLOOD COUNT 3.8 10^3/uL (4.3-11.0)
[2020-07-05 11:09] LABS: BILIRUBIN,TOTAL 0.7 MG/DL (0.1-1.0); CALCIUM 9.1 MG/DL (8.5-10.1); TOTAL PROTEIN 6.9 GM/DL (6.4-8.2)
[~2020-07-30 10:21] MED LIST changes: +ZOLEDRONIC ACID (CANCER CTR) 3.5 MG in NS (IVPB) CANCER CENTER 100 ML IV SCH
[2020-07-30 10:37] LABS: BASOPHILS % (AUTO) 1 % (0-10); EOSINOPHILS # (AUTO) 0.1 10^3/uL (0.0-0.3); EOSINOPHILS % (AUTO) 2 % (0-10); HEMATOCRIT 44 % (35-52); HEMOGLOBIN 14.9 g/dL (11.5-16.0); LYMPHOCYTES # (AUTO) 0.6 10^3/uL (1.0-4.0); LYMPHOCYTES % (AUTO) 24 % (12-44); MEAN CORPUSCULAR HEMOGLOBIN 32 pg (25-34); MEAN CORPUSCULAR HGB CONC 34 g/dL (32-36); MEAN CORPUSCULAR VOLUME 94 fL (80-99); MEAN PLATELET VOLUME 11.2 fL (9.0-12.2); MONOCYTES # (AUTO) 0.3 10^3/uL (0.0-1.0); MONOCYTES % (AUTO) 13 % (0-12); NEUTROPHILS # (AUTO) 1.4 10^3/uL (1.8-7.8); NEUTROPHILS % (AUTO) 60 % (42-75); PLATELET COUNT 122 10^3/uL (130-400); WHITE BLOOD COUNT 2.3 10^3/uL (4.3-11.0)
[2020-07-30 11:00] LABS: ALANINE AMINOTRANSFERASE 61 U/L (0-55); ALBUMIN 4.2 GM/DL (3.2-4.5); ALKALINE PHOSPHATASE 72 U/L (40-136); BILIRUBIN,TOTAL 0.6 MG/DL (0.1-1.0); BUN/CREATININE RATIO 20; CALCIUM 9.1 MG/DL (8.5-10.1); CARBON DIOXIDE 23 MMOL/L (21-32); CHLORIDE 108 MMOL/L (98-107); GFR ESTIMATED > 60; GLUCOSE 98 MG/DL (70-105); POTASSIUM 3.8 MMOL/L (3.6-5.0); SODIUM 140 MMOL/L (135-145); TOTAL PROTEIN 7.2 GM/DL (6.4-8.2)
== END 2020-07-31 | disposition home or self-care (01) ==
LOC: ONC 10:21
PROVIDERS: ATTEND Internal Medicine Hematology & Oncology
DX: C90.00 Multiple myeloma not having achieved remission (principal); M84.58XA Pathological fracture in neoplastic disease, other specified site, initial encounter for fracture; L97.429 Non-pressure chronic ulcer of left heel and midfoot with unspecified severity; Z86.711 Personal history of pulmonary embolism; Z79.01 Long term (current) use of anticoagulants; Z79.891 Long term (current) use of opiate analgesic; Z79.899 Other long term (current) drug therapy; Z92.3 Personal history of irradiation; Z92.21 Personal history of antineoplastic chemotherapy
CPT/HCPCS: 80053; 82232; 82784 ×3; 83883; 84165; 85025; 96365; G0463; 36415; 84155; 99213

== ENCOUNTER 2020-08-13 20:33 | Emergency (ER) | payer BC ==
[~2020-08-13] VITALS: Ht 170.1 cm; Wt 80.2 kg
[2020-08-13 20:37] VITALS: BP 173/76
--- NOTE | 2020-08-13 20:46 | ED Fever ---
History of Present Illness General Stated Complaint: SOB,FEVER History of Present Illness Date Seen by Provider: Aug 13, 2020 Time Seen by Provider: 20:41 Initial Comments 65-year-old female presents with some feeling of shortness of breath, fever, cough. Patient saw her primary care provider couple hours ago. Had a negative x- ray. Was started on Levaquin for bronchitis. Patient presents because her brother called another person who is ER doctor told her to come to the ER. Patient has no loss of sense of taste or smell. Just wanted to be reevaluated. Agent reports she has nebulizers at home from a pneumonia in the past but has not used them. . Allergies and Home Medications Allergies Coded Allergies: cefaclor (Verified Allergy, Unknown, 10/20/17) cephalexin (Verified Allergy, Unknown, 10/20/17) Home Medications Acyclovir 800 Mg Tablet, 800 MG PO BID, (Reported) Albuterol Sulfate 1 Puff Puff, 2 PUFF INH Q4H PRN for SHORTNESS OF BREATH, (Reported) 1 PUFF = 90 MCG Albuterol Sulfate 2.5 Mg/3 Ml Vial.neb, 2.5 MG INH TID Prescribed by: RYLAN SILVER on 11/03/18 09 Amoxicillin/Potassium Clav 1 Each Tablet, 1 EACH PO BID Prescribed by: RYLAN SILVER on 11/03/18 09 Apixaban 5 Mg Tablet, 5 MG PO BID, (Reported) Calcium Carbonate/Vitamin D3 1 Each Tablet, 1 TAB PO DAILY, (Reported) Cholecalciferol (Vitamin D3) 2,000 Unit Capsule, 2,000 UNIT PO DAILY, (Reported) Cyclosporine 1 Each Droperette, 1 DROP OU BID, (Reported) Duloxetine HCl 60 Mg Capsule.dr, 60 MG PO DAILY, (Reported) L. Acidophilus/Bulgaricus 1 Each Tab.chew, 1 EACH PO ACHS Prescribed by: RYLAN SILVER on 11/03/18 09 Levothyroxine Sodium 125 Mcg Tablet, 125 MCG PO DAILY, (Reported) Morphine Sulfate 30 Mg Tablet.er, 1 TAB PO BID, (Reported) Pregabalin 75 Mg Capsule, 75 MG PO TID, (Reported) Vitamin B Complex 1 Each Capsule, 1 CAP PO DAILY, (Reported) [Guaifenesin/Codeine] 10 ML SYRP, 5 ML PO Q4H PRN for COUGH Prescribed by: RYLAN SILVER on 11/03/18 [id number] Patient Home Medication List Home Medication List Reviewed: Yes Review of Systems Review of Systems Constitutional: No chills; fever Respiratory: cough, short of breath Cardiovascular: No chest pain, No palpitations Gastrointestinal: No abdominal pain, No nausea, No vomiting Musculoskeletal: no symptoms reported Skin: no symptoms reported Psychiatric/Neurological: No Symptoms Reported Past Kmutqos-Skqcvy-Dgdeda Hx Past Med/Social Hx: Reviewed Nursing Past Med/Soc Hx Patient Social History Recent Foreign Travel: No Contact w/Someone Who Travel: No Recent Hopitalizations: No Immunizations Up To Date Date of Influenza Vaccine: Jul 03, 2018 Seasonal Allergies Seasonal Allergies: Yes Past Medical History Respiratory: Yes Pneumonia Currently Using CPAP: No Currently Using BIPAP: No Cardiac: Yes High Cholesterol Neurological: No Genitourinary: No Gastrointestinal: No Arthritis, Chronic Back Pain Endocrine: Yes Hypothyroidsim HEENT: No Leukemia What Type of Treatment Did You: Chemotherapy, Other Psychosocial: No Integumentary: No Blood Disorders: No Physical Exam Capillary Refill : Height: 5'8.00" Weight: 164lbs. 6.0oz. 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 Patient's oxygen saturation is running 96-99% here in the ER. No decreased breath sounds or physical signs. Patient was offered a COVID swab but declined. Recommend she continue her Levaquin and will be discharged home. Departure Impression Primary Impression: Bronchitis Disposition: 01 HOME, SELF-CARE Condition: Stable Departure-Patient Inst. Referrals: RYLAN SILVER DO (PCP/Family) Primary Care Physician Patient Instructions: Acute Bronchitis Add. Discharge Instructions: Continue taking your already prescribed Levaquin as directed Trial your inhaler/nebulizer for improvement use every 4 hours of improvement Follow up with your primary care provider in 4-5 days for recheck in today symptoms or sooner if symptoms worse ZOLTAN DE LA ROSA DO Aug 13, 2020 20:46
== END 2020-08-13 20:57 | disposition home or self-care (01) ==
LOC: EDUNIT# 20:33 → ER FS 20:34
DX: U07.1 COVID-19 (principal); Z85.6 Personal history of leukemia; E03.9 Hypothyroidism, unspecified; Z79.890 Hormone replacement therapy; Z88.1 Allergy status to other antibiotic agents; Z88.8 Allergy status to other drugs, medicaments and biological substances; Z79.01 Long term (current) use of anticoagulants
CPT/HCPCS: 99282

== ENCOUNTER → 2020-08-13 | Outpatient (CLI) | payer BC ==
[~2020-08-13] MED LIST changes: -ZOLEDRONIC ACID (CANCER CTR) 3.5 MG in NS (IVPB) CANCER CENTER 100 ML IV SCH
--- NOTE | 2020-08-13 18:50 | Diagnostic Imaging Report ---
INDICATION: Cough, shortness of breath COMPARISON: 12/05/2019. FINDINGS: Frontal and lateral views of the chest demonstrate minimal scarring and/or atelectasis in the right base. The left lung is clear. The heart is prominent but stable. There is no pneumothorax but osseous structures are stable. IMPRESSION: 1. Stable scarring and/or atelectasis in the right base. 2. Cardiac enlargement without pulmonary edema or acute infiltrate. Dictated by: Dictated on workstation # [id number]
== END ==
LOC: RAD FS 17:43
PROVIDERS: ATTEND Nurse Practitioner Family
DX: R05 Cough (principal); I51.7 Cardiomegaly
CPT/HCPCS: 71046

== ENCOUNTER 2020-10-29 14:49 | Outpatient (RCR) | payer BC ==
[2020-08-27 09:32] LABS: BASOPHILS % (AUTO) 1 % (0-10); EOSINOPHILS # (AUTO) 0.1 10^3/uL (0.0-0.3); EOSINOPHILS % (AUTO) 5 % (0-10); HEMATOCRIT 45 % (35-52); HEMOGLOBIN 15.1 g/dL (11.5-16.0); LYMPHOCYTES # (AUTO) 0.6 10^3/uL (1.0-4.0); LYMPHOCYTES % (AUTO) 25 % (12-44); MEAN CORPUSCULAR HEMOGLOBIN 32 pg (25-34); MEAN CORPUSCULAR HGB CONC 34 g/dL (32-36); MEAN CORPUSCULAR VOLUME 94 fL (80-99); MEAN PLATELET VOLUME 11.1 fL (9.0-12.2); MONOCYTES # (AUTO) 0.4 10^3/uL (0.0-1.0); MONOCYTES % (AUTO) 15 % (0-12); NEUTROPHILS # (AUTO) 1.3 10^3/uL (1.8-7.8); NEUTROPHILS % (AUTO) 55 % (42-75); PLATELET COUNT 141 10^3/uL (130-400); WHITE BLOOD COUNT 2.4 10^3/uL (4.3-11.0)
[2020-08-27 09:52] LABS: ALANINE AMINOTRANSFERASE 30 U/L (0-55); ALBUMIN 4.1 GM/DL (3.2-4.5); ALKALINE PHOSPHATASE 66 U/L (40-136); BILIRUBIN,TOTAL 0.5 MG/DL (0.1-1.0); BUN/CREATININE RATIO 22; CALCIUM 8.8 MG/DL (8.5-10.1); CARBON DIOXIDE 22 MMOL/L (21-32); CHLORIDE 108 MMOL/L (98-107); CREATININE SERUM 0.89 MG/DL (0.60-1.30); GFR ESTIMATED > 60; GLUCOSE 94 MG/DL (70-105); SODIUM 140 MMOL/L (135-145); TOTAL PROTEIN 7.1 GM/DL (6.4-8.2)
[2020-09-24 14:34] LABS: BASOPHILS % (AUTO) 1 % (0-10); EOSINOPHILS # (AUTO) 0.1 10^3/uL (0.0-0.3); EOSINOPHILS % (AUTO) 5 % (0-10); HEMATOCRIT 43 % (35-52); HEMOGLOBIN 14.5 g/dL (11.5-16.0); LYMPHOCYTES # (AUTO) 0.7 10^3/uL (1.0-4.0); LYMPHOCYTES % (AUTO) 29 % (12-44); MEAN CORPUSCULAR HEMOGLOBIN 32 pg (25-34); MEAN CORPUSCULAR HGB CONC 34 g/dL (32-36); MEAN CORPUSCULAR VOLUME 96 fL (80-99); MEAN PLATELET VOLUME 11.6 fL (9.0-12.2); MONOCYTES # (AUTO) 0.5 10^3/uL (0.0-1.0); MONOCYTES % (AUTO) 18 % (0-12); NEUTROPHILS # (AUTO) 1.2 10^3/uL (1.8-7.8); NEUTROPHILS % (AUTO) 47 % (42-75); PLATELET COUNT 108 10^3/uL (130-400); WHITE BLOOD COUNT 2.5 10^3/uL (4.3-11.0)
[2020-09-24 14:55] LABS: ALANINE AMINOTRANSFERASE 41 U/L (0-55); ALBUMIN 3.9 GM/DL (3.2-4.5); ALKALINE PHOSPHATASE 54 U/L (40-136); BILIRUBIN,TOTAL 0.6 MG/DL (0.1-1.0); BUN/CREATININE RATIO 22; CALCIUM 8.7 MG/DL (8.5-10.1); CARBON DIOXIDE 23 MMOL/L (21-32); CHLORIDE 108 MMOL/L (98-107); CREATININE SERUM 0.82 MG/DL (0.60-1.30); GFR ESTIMATED > 60; GLUCOSE 96 MG/DL (70-105); POTASSIUM 3.9 MMOL/L (3.6-5.0); SODIUM 141 MMOL/L (135-145); TOTAL PROTEIN 6.6 GM/DL (6.4-8.2)
[2020-09-28 15:45] LABS: IMMUNOFIX PATH REPORT NUMBER Complete (Complete)
[~2020-10-29 14:49] MED LIST changes: +ZOLEDRONIC ACID (CANCER CTR) 3.5 MG in NS (IVPB) CANCER CENTER 100 ML IV SCH
[2020-10-29 15:04] LABS: BASOPHILS % (AUTO) 0 % (0-10); EOSINOPHILS # (AUTO) 0.1 10^3/uL (0.0-0.3); EOSINOPHILS % (AUTO) 5 % (0-10); HEMATOCRIT 41 % (35-52); HEMOGLOBIN 13.9 g/dL (11.5-16.0); LYMPHOCYTES # (AUTO) 0.7 10^3/uL (1.0-4.0); LYMPHOCYTES % (AUTO) 28 % (12-44); MEAN CORPUSCULAR HEMOGLOBIN 32 pg (25-34); MEAN CORPUSCULAR HGB CONC 34 g/dL (32-36); MEAN CORPUSCULAR VOLUME 95 fL (80-99); MEAN PLATELET VOLUME 11.9 fL (9.0-12.2); MONOCYTES # (AUTO) 0.4 10^3/uL (0.0-1.0); MONOCYTES % (AUTO) 17 % (0-12); NEUTROPHILS # (AUTO) 1.2 10^3/uL (1.8-7.8); NEUTROPHILS % (AUTO) 50 % (42-75); PLATELET COUNT 102 10^3/uL (130-400); WHITE BLOOD COUNT 2.3 10^3/uL (4.3-11.0)
[2020-10-29 15:26] LABS: ALANINE AMINOTRANSFERASE 40 U/L (0-55); ALBUMIN 3.8 GM/DL (3.2-4.5); ALKALINE PHOSPHATASE 64 U/L (40-136); BILIRUBIN,TOTAL 0.4 MG/DL (0.1-1.0); BUN/CREATININE RATIO 21; CALCIUM 8.7 MG/DL (8.5-10.1); CARBON DIOXIDE 28 MMOL/L (21-32); CHLORIDE 107 MMOL/L (98-107); GFR ESTIMATED > 60; GLUCOSE 110 MG/DL (70-105); POTASSIUM 3.6 MMOL/L (3.6-5.0); SODIUM 140 MMOL/L (135-145); TOTAL PROTEIN 6.8 GM/DL (6.4-8.2)
[2020-11-05 16:12] LABS: IMMUNOFIX PATH REPORT NUMBER Complete (Complete)
== END 2020-11-09 13:08 | disposition home or self-care (01) ==
LOC: ONC 14:49
PROVIDERS: ATTEND Internal Medicine Hematology & Oncology
DX: C90.00 Multiple myeloma not having achieved remission (principal); M84.58XA Pathological fracture in neoplastic disease, other specified site, initial encounter for fracture; L97.429 Non-pressure chronic ulcer of left heel and midfoot with unspecified severity; Z86.711 Personal history of pulmonary embolism; Z79.01 Long term (current) use of anticoagulants; Z79.891 Long term (current) use of opiate analgesic; Z79.899 Other long term (current) drug therapy; Z92.3 Personal history of irradiation; Z92.21 Personal history of antineoplastic chemotherapy
CPT/HCPCS: 80053; 82232; 82784 ×3; 83883; 84165; 85025; G0463; 84155; 86334; 99213

== ENCOUNTER → 2021-01-11 | Outpatient (CLI) | payer MEDICARE, OTHER ==
[~2021-01-11] MED LIST changes: -ZOLEDRONIC ACID (CANCER CTR) 3.5 MG in NS (IVPB) CANCER CENTER 100 ML IV SCH
--- NOTE | 2021-01-14 11:10 | Diagnostic Imaging Report ---
INDICATION: Routine screening. Comparison is made with prior mammogram 01/03/2020 and 11/21/2016. 2-D and 3-D bilateral screening mammography was performed with CAD. Both breasts are heterogeneously dense, limiting the sensitivity of mammography. The parenchymal pattern is stable. Intraparenchymal lymph node upper outer right breast is stable. No new mass or malignant appearing microcalcifications are seen. There are benign calcifications. Axillae are unremarkable. IMPRESSION: BI-RADS Category 2 No mammographic features suspicious for malignancy are identified. ACR BI-RADS Category 2: Benign findings. Result letter will be mailed to the patient. Note: At least 10% of breast cancer is not imaged by mammography. Dictated by: Dictated on workstation # [id number]
== END ==
LOC: RAD 14:58
PROVIDERS: ATTEND Nurse Practitioner Adult Health
DX: Z12.31 Encounter for screening mammogram for malignant neoplasm of breast (principal)
CPT/HCPCS: 77063; 77067

== ENCOUNTER 2021-02-18 09:51 | Outpatient (RCR) | payer MEDICARE, OTHER ==
[2020-11-26 15:43] LABS: BASOPHILS % (AUTO) 0 % (0-10); EOSINOPHILS # (AUTO) 0.1 10^3/uL (0.0-0.3); EOSINOPHILS % (AUTO) 4 % (0-10); HEMATOCRIT 44 % (35-52); HEMOGLOBIN 14.8 g/dL (11.5-16.0); LYMPHOCYTES # (AUTO) 0.9 10^3/uL (1.0-4.0); LYMPHOCYTES % (AUTO) 31 % (12-44); MEAN CORPUSCULAR HEMOGLOBIN 32 pg (25-34); MEAN CORPUSCULAR HGB CONC 34 g/dL (32-36); MEAN CORPUSCULAR VOLUME 94 fL (80-99); MEAN PLATELET VOLUME 11.6 fL (9.0-12.2); MONOCYTES # (AUTO) 0.4 10^3/uL (0.0-1.0); MONOCYTES % (AUTO) 14 % (0-12); NEUTROPHILS # (AUTO) 1.5 10^3/uL (1.8-7.8); NEUTROPHILS % (AUTO) 51 % (42-75); PLATELET COUNT 105 10^3/uL (130-400); WHITE BLOOD COUNT 2.9 10^3/uL (4.3-11.0)
[2020-11-26 16:05] LABS: ALANINE AMINOTRANSFERASE 25 U/L (0-55); ALKALINE PHOSPHATASE 62 U/L (40-136); BILIRUBIN,TOTAL 0.6 MG/DL (0.1-1.0); BUN/CREATININE RATIO 20; CALCIUM 9.2 MG/DL (8.5-10.1); CARBON DIOXIDE 23 MMOL/L (21-32); CHLORIDE 107 MMOL/L (98-107); GFR ESTIMATED > 60; GLUCOSE 106 MG/DL (70-105); POTASSIUM 3.9 MMOL/L (3.6-5.0); SODIUM 142 MMOL/L (135-145); TOTAL PROTEIN 6.9 GM/DL (6.4-8.2)
[2021-01-07 15:34] LABS: BASOPHILS % (AUTO) 0 % (0-10); EOSINOPHILS % (AUTO) 1 % (0-10); HEMATOCRIT 42 % (35-52); HEMOGLOBIN 14.2 g/dL (11.5-16.0); LYMPHOCYTES # (AUTO) 0.8 X 10^3 (1.0-4.0); LYMPHOCYTES % (AUTO) 21 % (12-44); MEAN CORPUSCULAR HEMOGLOBIN 33 pg (25-34); MEAN CORPUSCULAR HGB CONC 34 g/dL (32-36); MEAN CORPUSCULAR VOLUME 97 fL (80-99); MEAN PLATELET VOLUME 11.6 fL (9.0-12.2); MONOCYTES # (AUTO) 0.4 X 10^3 (0.0-1.0); MONOCYTES % (AUTO) 12 % (0-12); NEUTROPHILS # (AUTO) 2.4 X 10^3 (1.8-7.8); NEUTROPHILS % (AUTO) 66 % (42-75); PLATELET COUNT 123 10^3/uL (130-400); WHITE BLOOD COUNT 3.6 10^3/uL (4.3-11.0)
[2021-01-07 16:12] LABS: ALANINE AMINOTRANSFERASE 30 U/L (0-55); ALKALINE PHOSPHATASE 52 U/L (40-136); BILIRUBIN,TOTAL 0.6 MG/DL (0.1-1.0); BUN/CREATININE RATIO 16; CALCIUM 9.4 MG/DL (8.5-10.1); CARBON DIOXIDE 26 MMOL/L (21-32); CHLORIDE 108 MMOL/L (98-107); CREATININE SERUM 0.86 MG/DL (0.60-1.30); GFR ESTIMATED > 60; GLUCOSE 99 MG/DL (70-105); POTASSIUM 3.6 MMOL/L (3.6-5.0); SODIUM 142 MMOL/L (135-145); TOTAL PROTEIN 6.8 GM/DL (6.4-8.2)
[~2021-02-18 09:51] MED LIST changes: +ACYC-112 PO; -ACYC800T PO; +ZOLEDRONIC ACID (CANCER CTR) 3.5 MG in NS (IVPB) CANCER CENTER 100 ML IV SCH
[2021-02-18 10:10] LABS: BASOPHILS % (AUTO) 0 % (0-10); HEMOGLOBIN 13.5 g/dL (11.5-16.0); MEAN CORPUSCULAR VOLUME 99 fL (80-99)
[2021-02-18 10:12] LABS: EOSINOPHILS # (AUTO) 0.1 10^3/uL (0.0-0.3); EOSINOPHILS % (AUTO) 2 % (0-10); HEMATOCRIT 40 % (35-52); LYMPHOCYTES # (AUTO) 0.7 10^3/uL (1.0-4.0); LYMPHOCYTES % (AUTO) 18 % (12-44); MEAN CORPUSCULAR HEMOGLOBIN 33 pg (25-34); MEAN CORPUSCULAR HGB CONC 34 g/dL (32-36); MONOCYTES # (AUTO) 0.6 10^3/uL (0.0-1.0); MONOCYTES % (AUTO) 16 % (0-12); NEUTROPHILS # (AUTO) 2.6 10^3/uL (1.8-7.8); NEUTROPHILS % (AUTO) 64 % (42-75); PLATELET COUNT 111 10^3/uL (130-400)
[2021-02-18 10:27] LABS: BILIRUBIN,TOTAL 0.8 MG/DL (0.1-1.0); CALCIUM 9.1 MG/DL (8.5-10.1); CREATININE SERUM 1.03 MG/DL (0.60-1.30); POTASSIUM 4.1 MMOL/L (3.6-5.0)
== END 2021-02-24 | disposition home or self-care (01) ==
LOC: ONC 09:51
PROVIDERS: ATTEND Internal Medicine Hematology & Oncology
DX: Z51.11 Encounter for antineoplastic chemotherapy (principal); C90.00 Multiple myeloma not having achieved remission; M84.58XA Pathological fracture in neoplastic disease, other specified site, initial encounter for fracture; I63.549 Cerebral infarction due to unspecified occlusion or stenosis of unspecified cerebellar artery; Z86.711 Personal history of pulmonary embolism; Z79.01 Long term (current) use of anticoagulants; Z79.891 Long term (current) use of opiate analgesic; Z79.899 Other long term (current) drug therapy; Z92.3 Personal history of irradiation; Z92.21 Personal history of antineoplastic chemotherapy
CPT/HCPCS: 80053; 82232; 82784 ×3; 83883; 84165; 85025; 96365; G0463; 84155; 99213

== ENCOUNTER 2021-06-11 18:24 | Emergency (ER) | payer MEDICARE, OTHER ==
[~2021-06-11] VITALS: Ht 172 cm; Wt 72.5 kg
[~2021-06-11 18:24] MED LIST changes: -ZOLEDRONIC ACID (CANCER CTR) 3.5 MG in NS (IVPB) CANCER CENTER 100 ML IV SCH
--- NOTE | 2021-06-11 18:47 | ED Respiratory ---
General Chief Complaint: Respiratory Problems Stated Complaint: COVID POSITIVE, LOW O2 Nursing Triage Note: C/O SOB WITH EXERTION COVID POSITIVE Source: patient Exam Limitations: no limitations History of Present Illness Date Seen by Provider: Jun 11, 2021 Time Seen by Provider: 18:35 Initial Comments Patient is a 65-year-old female who presents to the emergency department today with a chief complaint of feeling short of breath with exertion, being Covid positive, mild cough. Patient states she is seen oxygen saturations anywhere from 88-94 at home. This is on home pulse oximetry. She is concerned about pneumonia as she has had pneumonia in the past. She tested positive for Covid on June 03 and had Regeneron 2 days ago. She has a history of multiple myeloma. She denies loss of taste or smell, denies headache, sore throat, congestion, nausea vomiting or diarrhea. Denies urinary complaints. She is chronically anticoagulated on Eliquis. She denies any swelling or pain in her lower extremities. All other review of systems reviewed and negative except as stated above. Timing/Duration: this evening Severity: mild Prior Episodes/Possible Cause: occasional episodes Associated Symptoms: cough (Mild), shortness of breath Allergies and Home Medications Allergies Coded Allergies: cefaclor (Verified Allergy, Unknown, 10/20/17) cephalexin (Verified Allergy, Unknown, 10/20/17) Home Medications Acyclovir 800 Mg Tablet, 800 MG PO BID, (Reported) Albuterol Sulfate 1 Puff Puff, 2 PUFF INH Q4H PRN for SHORTNESS OF BREATH, (Reported) 1 PUFF = 90 MCG Albuterol Sulfate 2.5 Mg/3 Ml Vial.neb, 2.5 MG INH TID Prescribed by: RYLAN SILVER on 11/03/18929 Amoxicillin/Potassium Clav 1 Each Tablet, 1 EACH PO BID Prescribed by: RYLAN SILVER on 11/03/18929 Apixaban 5 Mg Tablet, 5 MG PO BID, (Reported) Calcium Carbonate/Vitamin D3 1 Each Tablet, 1 TAB PO DAILY, (Reported) Cholecalciferol (Vitamin D3) 2,000 Unit Capsule, 2,000 UNIT PO DAILY, (Reported) Cyclosporine 1 Each Droperette, 1 DROP OU BID, (Reported) Duloxetine HCl 60 Mg Capsule.dr, 60 MG PO DAILY, (Reported) L. Acidophilus/Bulgaricus 1 Each Tab.chew, 1 EACH PO ACHS Prescribed by: RYLAN SILVER on 11/03/18930 Levothyroxine Sodium 125 Mcg Tablet, 125 MCG PO DAILY, (Reported) Morphine Sulfate 30 Mg Tablet.er, 1 TAB PO BID, (Reported) Pregabalin 75 Mg Capsule, 75 MG PO TID, (Reported) Vitamin B Complex 1 Each Capsule, 1 CAP PO DAILY, (Reported) [Guaifenesin/Codeine] 10 ML SYRP, 5 ML PO Q4H PRN for COUGH Prescribed by: RYLAN SILVER on 11/03/18929 Patient Home Medication List Home Medication List Reviewed: Yes Review of Systems Review of Systems Constitutional: see HPI EENTM: no symptoms reported Respiratory: cough, short of breath Cardiovascular: no symptoms reported Gastrointestinal: no symptoms reported Genitourinary: no symptoms reported Musculoskeletal: no symptoms reported Skin: no symptoms reported All Other Systems Reviewed Negative Unless Noted: Yes Past Gqibull-Kbzibb-Pknzbz Hx Seasonal Allergies Seasonal Allergies: Yes Past Medical History Surgeries: Yes (Bone Marrow Transplant 2018) Respiratory: Yes Pneumonia Currently Using CPAP: No Currently Using BIPAP: No Cardiac: Yes High Cholesterol Neurological: No Genitourinary: No Gastrointestinal: No Arthritis, Chronic Back Pain Endocrine: Yes Hypothyroidsim HEENT: No Cancer: Yes (MULTIPLE MYELOMA) Leukemia What Type of Treatment Did You: Chemotherapy, Other Psychosocial: No Integumentary: No Blood Disorders: No Physical Exam Vital Signs - First Documented 06/11/21 18:30 Temp 37.2 Pulse 90 Resp 18 B/P (MAP) 126/75 (92) Pulse Ox 97 Capillary Refill : Less Than 3 Seconds Height: 5'8.00" Weight: 164lbs. 6.0oz. 74.265678hq; 24.00 BMI Method: General Appearance: WD/WN, no apparent distress Eyes: Bilateral Eye Normal Inspection, Bilateral Eye PERRL Neck: normal inspection Respiratory: lungs clear, normal breath sounds, no respiratory distress, no accessory muscle use, other (Pulse oximetry 98% on my evaluation) Cardiovascular: regular rate, rhythm Gastrointestinal: soft Neurologic/Psychiatric: alert, normal mood/affect, oriented x 3 Skin: normal color, warm/dry Progress/Results/Core Measures Suspected Sepsis SIRS Temperature: Pulse: 90 Respiratory Rate: 18 Laboratory Tests 06/11/21 18:00: White Blood Count 4.9 Blood Pressure 126 /75 Mean: 92 Laboratory Tests 06/11/21 18:00: Creatinine 1.45H, Platelet Count 107L Results/Orders Lab Results Laboratory Tests Test 06/11/21 18:00 Range/Units White Blood Count 4.9 4.3-11.0 10^3/uL Red Blood Count 4.11 3.80-5.11 10^6/uL Hemoglobin 13.1 11.5-16.0 g/dL Hematocrit 39 35-52 % Mean Corpuscular Volume 95 80-99 fL Mean Corpuscular Hemoglobin 32 25-34 pg Mean Corpuscular Hemoglobin Concent 34 32-36 g/dL Red Cell Distribution Width 12.6 10.0-14.5 % Platelet Count 107 L 130-400 10^3/uL Mean Platelet Volume 12.3 H 9.0-12.2 fL Immature Granulocyte % (Auto) 0 % Neutrophils (%) (Auto) 63 42-75 % Lymphocytes (%) (Auto) 20 12-44 % Monocytes (%) (Auto) 14 H 0-12 % Eosinophils (%) (Auto) 3 0-10 % Basophils (%) (Auto) 0 0-10 % Neutrophils # (Auto) 3.1 1.8-7.8 10^3/uL Lymphocytes # (Auto) 1.0 1.0-4.0 10^3/uL Monocytes # (Auto) 0.7 0.0-1.0 10^3/uL Eosinophils # (Auto) 0.1 0.0-0.3 10^3/uL Basophils # (Auto) 0.0 0.0-0.1 10^3/uL Immature Granulocyte # (Auto) 0.0 0.0-0.1 10^3/uL Percent Immature Platelet Fraction 6.9 0.0-7.6 % Sodium Level 140 135-145 MMOL/L Potassium Level 3.6 3.6-5.0 MMOL/L Chloride Level 101 98-107 MMOL/L Carbon Dioxide Level 27 21-32 MMOL/L Anion Gap 12 5-14 MMOL/L Blood Urea Nitrogen 26 H 7-18 MG/DL Creatinine 1.45 H 0.60-1.30 MG/DL Estimat Glomerular Filtration Rate 36 BUN/Creatinine Ratio 18 Glucose Level 109 H 70-105 MG/DL Calcium Level 9.3 8.5-10.1 MG/DL My Orders Orders - BARRY REZA MD Ed Iv/Invasive Line Start (06/11/21 18:43) Cbc With Automated Diff (06/11/21 18:43) Basic Metabolic Panel (06/11/21 18:43) Chest 1 View, Ap/Pa Only (06/11/21 18:43) Ns Iv 1000 Ml (Sodium Chloride 0.9%) (06/11/21 19:45) Covid-19 External Lab Results (06/11/21 19:35) Isolation Central Supply Req (06/11/21 19:35) Vital Signs/I&O 06/11/21 18:30 Temp 37.2 Pulse 90 Resp 18 B/P (MAP) 126/75 (92) Pulse Ox 97 Capillary Refill : Less Than 3 Seconds Blood Pressure Mean: 92 Progress Note : Time: 19:42 Progress Note Patient seen and evaluated, 65-year-old about 10 days into her Covid diagnosis with a complaint of low oxygen saturations down to 88 at home. Patient is demonstrating no increased work of breathing. She is not hypoxic here in the emergency department while at rest. She is not tachycardic nor does she have hypotension. Chest x-ray is reviewed and does not show any infiltrate concerning of Covid pneumonia. Her CBC is normal. Her chemistry shows a mild increase in her serum creatinine to 1.4. Her GFR is 32. This is well below her baseline, last measurement on creatinine was 1.2. Patient is treated in the emergency department with a liter of fluids and encouraged to follow-up with Dr. Silver. She looks well, nontoxic appearing. No concerns for emergent admission Diagnostic Imaging Diagonstic Imaging: Xray Plain Films/CT/US/NM/MRI: chest Comments [facility] [place], [place] NAME: MELISSA MAYA Cristy [facility] REC#: [id number] PT STATUS: REG ER : 1955 PHYSICIAN: BARRY REZA MD ADMIT DATE: 06/11/21/ER Draft Date of Exam:06/11/21 CHEST 1 VIEW, AP/PA ONLY INDICATION: sob a little cough COVID pos. TECHNIQUE: Single view chest 6:59 PM. CORRELATION STUDY: 08/13/2020 FINDINGS: Chronic right cardiophrenic angle pleural thickening. Given limited depth of inspiration, lung love overall appear clear. Heart size slightly more prominent but again accentuated from technique. Vasculature appears stable. IMPRESSION: 1. Given the limited depth of inspiration, generally stable appearing portable chest. Dictated on workstation # [id number] Dict: 06/11/211900 Trans: 06/11/211911 [facility] [id number] Interpreted by: TYRONE CUMMINGS DO Electronically signed by: Departure Impression Primary Impression: COVID-19 Additional Impression: Acute kidney injury due to COVID-19 Disposition: 01 HOME, SELF-CARE Condition: Stable Departure-Patient Inst. Decision time for Depature: 19:33 Referrals: RYLAN SILVER DO (PCP/Family) Primary Care Physician Patient Instructions: COVID-19 Overview Add. Discharge Instructions: Please continue to drink plenty of fluids to stay well-hydrated. You do not have pneumonia at this time. You do have a slight decrease in your overall kidney function. This will need to be rechecked by your primary care doctor, Dr. Silver in about a week. Please contact her office for a follow-up appointment. You have been given some IV fluids here in the emergency department to hopefully correct some of your kidney function. Continue to take Tylenol as needed for any temperature over 100.4. Continue your routine home medications. Return to the emergency room for any new, concerning or emergent complaints. Copy Copies To 1: ROLANDO MAYA DO Copies To 2: RYLAN SILVER KATHRYN M MD Jun 11, 2021 18:47
[2021-06-11 19:02] LABS: BASOPHILS % (AUTO) 0 % (0-10); HEMOGLOBIN 13.1 g/dL (11.5-16.0); MEAN PLATELET VOLUME 12.3 fL (9.0-12.2)
[2021-06-11 19:04] LABS: EOSINOPHILS # (AUTO) 0.1 10^3/uL (0.0-0.3); EOSINOPHILS % (AUTO) 3 % (0-10); HEMATOCRIT 39 % (35-52); LYMPHOCYTES % (AUTO) 20 % (12-44); MEAN CORPUSCULAR HEMOGLOBIN 32 pg (25-34); MEAN CORPUSCULAR HGB CONC 34 g/dL (32-36); MEAN CORPUSCULAR VOLUME 95 fL (80-99); MONOCYTES # (AUTO) 0.7 10^3/uL (0.0-1.0); MONOCYTES % (AUTO) 14 % (0-12); NEUTROPHILS # (AUTO) 3.1 10^3/uL (1.8-7.8); NEUTROPHILS % (AUTO) 63 % (42-75); PLATELET COUNT 107 10^3/uL (130-400); WHITE BLOOD COUNT 4.9 10^3/uL (4.3-11.0)
[2021-06-11 19:11] LABS: POTASSIUM 3.6 MMOL/L (3.6-5.0)
[2021-06-11 19:12] LABS: CALCIUM 9.3 MG/DL (8.5-10.1)
--- NOTE | 2021-06-11 19:12 | Diagnostic Imaging Report ---
INDICATION: sob a little cough COVID pos. TECHNIQUE: Single view chest 6:59 PM. CORRELATION STUDY: 08/13/2020 FINDINGS: Chronic right cardiophrenic angle pleural thickening. Given limited depth of inspiration, lung love overall appear clear. Heart size slightly more prominent but again accentuated from technique. Vasculature appears stable. IMPRESSION: 1. Given the limited depth of inspiration, generally stable appearing portable chest. Dictated on workstation # [id number]
[2021-06-11 19:16] LABS: CREATININE SERUM 1.45 MG/DL (0.60-1.30)
[2021-06-11] MEDS ORDERED: NS IV 1000 ML 1,000 ML IV SCH (19:45)
[2021-06-11 20:42] VITALS: BP 141/68
--- OUTSIDE RECORDS SUMMARY | 2021-06-12 15:25 | XMS REPORT | Encounter Summary ---
Author Author [facility] Organization [facility] Address Unknown Phone Unavailable Care Team Providers Care Judicial Clerk Name Role Phone MartinezEsperanza bob [place] [id number] Encounter Details Care Team Description Date Type Department Albina Han RN 06/07/2021 Documentation Infection Control: [facility], [address] [address] Social History Date Tobacco Use Types Packs/Day Years Used Never Smoker Smokeless Tobacco: Never Used Drinks/Week oz/Week Comments Alcohol Use No Sex Assigned at Date Recorded Female 04/13/2020 11:27 PM CDT Date Recorded COVID-19 Exposure Response 05/23/2021 10:51 AM CDT In the last month, have you been in contact with No / Unsure someone who was confirmed or suspected to have Coronavirus / COVID-19? documented as of this encounter Functional Status Date of Assessment Functional Status Response 11/05/2020 Does the patient have a hearing impairment: No 11/05/2020 Does the patient have a visual impairment: No 11/05/2020 Does the patient have impaired ambulation: No 11/05/2020 Does the patient have an activity of daily living No (ADL) impairment: 11/05/2020 Does the patient have an instrumental activity of No daily living (IADL) impairment: Date of Assessment Cognitive Status Response 11/05/2020 Does the patient have a cognitive impairment: No documented as of this encounter Plan of Treatment Not on filedocumented as of this encounter Goals Goal Patient Associated Recent Progress Patient-Stat Aut hor Goal Type Problems ed? [facility] No Azar Castillo RN documented as of this encounter Visit Diagnoses Not on filedocumented in this encounter Additional Health Concerns Last Indicated Resolved Time Infection Onset Date 06/07/2021 Covid-19 Confirmed 06/07/2021 Assessment Noted Time A fall risk assessment has been completed for the pat ient 06/07/2021 2:17 PM CDT PHQ-2 Depression Total Score: 0 05/03/2019 11:50 AM CDT documented as of this encounter
--- OUTSIDE RECORDS SUMMARY | 2021-06-12 15:25 | XMS REPORT | Encounter Summary ---
Author Author [facility] Organization [facility] Address Unknown Phone Unavailable Care Team Providers Care Stenographic Court Reporter Name Role Phone Esperanza Martinez [place] [phone] Reason for Visit * Reason Comments Treatment * Treatment (Routine) Referred By Contact Referred To Contact Status Reason Specialty Diagnoses / Procedures Candice Meza P, SKID MACHINE OPERATOR-DELIVERY ASSOCIATE [address] [facility] [place] [address] [facility] [address] [place] [address] Authorized Diagnoses COVID-19 P rocedures CASIRIVIMAB-IMDEVI MAB (REGN [id number]) Encounter Details Care Team Description Date Type Department Trevor Lazo MD [address] [place], [place] [id number] 06/07/2021 Hospital Oncology: [facility] [place] [address] [place] [address]. [address], [address] [place] [address] Social History Date Tobacco Use Types Packs/Day Years Used Never Smoker Smokeless Tobacco: Never Used Drinks/Week oz/Week Comments Alcohol Use No Sex Assigned at Date Recorded Female 04/13/2020 11:27 PM CDT Date Recorded COVID-19 Exposure Response 06/07/2021 2:10 PM CDT In the last month, have you been in contact with Mildred ble to assess someone who was confirmed or suspected to have Coronavirus / COVID-19? documented as of this encounter Last Filed Vital Signs Reading Time Taken Comments Vital Sign 119/74 06/07/2021 2:17 PM CDT Blood Pressure 75 06/07/2021 2:17 PM CDT Pulse 36.9 C (98.4 F) 06/07/2021 2:17 PM CDT Temperature 15 06/07/2021 2:17 PM CDT Respiratory Rate 99% 06/07/2021 2:17 PM CDT Oxygen Saturation - - Inhaled Oxygen Concentration - - Weight - - Height - - Body Mass Index documented in this encounter Functional Status Date of Assessment [...] impairment: No documented as of this encounter Medications at Time of Discharge Start Date End Date Medication Sig Dispensed Refills 11/05/2020 apixaban (ELIQUIS) 5 mg Take one 60 tablet 2 tablet tablet by mouth twice daily. 11/06/2020 atorvastatin (LIPITOR) 40 Take one 90 tablet 3 mg tablet tablet by mouth daily. 05/17/2021 carvediloL (COREG) 25 mg Take 25 mg by 0 tablet mouth twice daily. Cholecalciferol (Vitamin Take 5,000 0 D3) 25 mcg (1,000 unit) Units by cap mouth daily. cyclosporine (RESTASIS) Apply 1 drop 0 0.05 % ophthalmic to both eyes emulsion twice daily. duloxetine DR (CYMBALTA) Take 60 mg by 0 60 mg capsule mouth every 24 hours. fenofibrate (TRIGLIDE) Take 160 mg 0 160 mg tablet by mouth daily. Take with food. levothyroxine (SYNTHROID) Take 100 mcg 0 100 mcg tablet by mouth daily 30 minutes before breakfast. levothyroxine (SYNTHROID) Take 100 mcg 0 125 mcg tablet by mouth daily 30 minutes before breakfast. montelukast (SINGULAIR) Take 10 mg by 0 10 mg tablet mouth at bedtime daily. 04/09/2020 morphine SR (MS CONTIN) Take 15 mg by 0 15 mg tablet mouth every 24 hours oxyCODONE (ROXICODONE, Take 5 mg by 0 OXY-IR) 5 mg tablet mouth every 4 hours as needed for Pain 03/04/2018 pregabalin (LYRICA) 75 mg Take 1 90 capsule 0 capsule capsule by mouth three times daily. turmeric root extract 500 Take 1 0 mg cap capsule by mouth twice daily. vitamins, B complex tab Take 1 tablet 0 by mouth at bedtime daily. documented as of this encounter Discharge Disposition Code Departure Means Destination Disposition Home Home or Self Care documented in this encounter Progress Notes * Arturo Queen, KAITLYN - 06/07/2021 1:45 PM CDT CHEMO NOTE Verified chemo consent signed and in chart. Verified initiate chemo order in O2 Blood return positive via: Peripheral (22 ga) BSA and dose double checked (agree with orders as written) with: yes Cecille Labs/applicable tests checked: None Chemo regime: Drug/cycle/day Regeneron Rate verified and armband double checkwith second RN: yes Patient education offered and stated understanding. Denies questions at this dorinda e. documented in this encounter Plan of Treatment Not on filedocumented as of this encounter Goals Goal Patient Associated Recent Progress Patient-Stat Aut hor Goal Type Problems ed? [facility] No Azar Castillo, RN documented as of this encounter Visit Diagnoses Diagnosis COVID-19 - Primary documented in this encounter Administered Medications Action Date Dose Rate Site Medication Order MAR Action 06/07/2021 3:01 PM CDT 1,200 mg 180 mL/hr casirivimab-imdevimab 1,200 mg in sodium Given - New chloride 0.9% (NS) 60 mL IVPB Bag 1,200 mg, Intravenous, 60 mL, Administe r over 20 Minutes, ONCE, 1 dose, Thu06/07/21 at 1445, SPECIAL TUBING REQUIRED Monitor patient clinically during infusion and for at least one hour after the infusion is complete. NOTE: This is a HIGH ALERT Medication., documented in this encounter Orders First Ordered Date Medications Ordered That Might Not Have Count Last Ordered Date Been Administered casirivimab-imdevimab 1,200 mg in sodium 1 06/07/2021 chloride 0.9% (NS) 60 mL IVPB First Ordered Date Nursing Count Last Ordered Date IMPLEMENT EXTRAVASATION MANAGEMENT 1 04/2021 IMPLEMENT GENERAL IV LINE FLUSH PROTOCOL 1 06/07/2021 IMPLEMENT HYPOGLYCEMIA IN THE PEDIATRIC 1 06/07/2021 PATIENT PROTOCOL IMPLEMENT HYPOGLYCEMIA MANAGEMENT OF 1 0 06/07/2021 ADULT PATIENTS PROTOCOL IMPLEMENT MEDICATION REACTION 1 06/07/20 ANAPHYLAXIS, AND HYPERSENSITIVITY ANIBAL C documented in this encounter Additional Health Concerns Last Indicated Resolved Time Infection Onset Date 06/07/2021 Covid-19 Confirmed 06/07/2021 Assessment Noted Time A fall risk assessment has been completed for the pat ient 06/07/2021 2:17 PM CDT PHQ-2 Depression Total Score: 0 05/03/2019 11:50 AM CDT documented as of this encounter
--- OUTSIDE RECORDS SUMMARY | 2021-06-12 15:25 | XMS REPORT | Clinical Summary ---
Author Author [facility] Organization [facility] Address Unknown Phone Unavailable Care Team Providers Care Customer Service Representative Name Role Phone Esperanza Martinez [place] [id number] Source Comments Some departments are not documenting in the electronic medical record. If you d o not see the information that you expected, contact Release of Information in [facility] Information Management department at [phone] for further assistan ce in locating additional records.[facility] Allergies Comments Active Allergy Reactions Severity Noted Date Cephalexin RASH High 07/02/2007 Medications End Date Status Medication Sig Dispensed Refills Start Date Active vitamins, B complex tab Take 1 tablet 0 by mouth at bedtime daily. Active cyclosporine (RESTASIS) Apply 1 drop 0 0.05 % ophthalmic to both eyes emulsion twice daily. Active levothyroxine (SYNTHROID) Take 100 mcg 0 125 mcg tablet by mouth daily 30 minutes before breakfast. Active turmeric root extract 500 Take 1 0 mg cap capsule by mouth twice daily. Active pregabalin (LYRICA) 75 mg Take 1 90 capsule 0 capsule capsule by 8 mouth three times daily. Active oxyCODONE (ROXICODONE, Take 5 mg by 0 OXY-IR) 5 mg tablet mouth every 4 hours as needed for Pain Active morphine SR (MS CONTIN) Take 15 mg by 0 15 mg tablet mouth every [address] (CYMBALTA) Take 60 mg by 0 60 mg capsule mouth every 24 hours. Active montelukast (SINGULAIR) Take 10 mg by 0 10 mg tablet mouth at bedtime daily. Active fenofibrate (TRIGLIDE) Take 160 mg 0 160 mg tablet by mouth daily. Take with food. Active levothyroxine (SYNTHROID) Take 100 mcg 0 100 mcg tablet by mouth daily 30 minutes before breakfast. Active atorvastatin (LIPITOR) 40 Take one 90 tablet 3 mg tablet tablet by 1 mouth daily. Active apixaban (ELIQUIS) 5 mg Take one 60 tablet 2 tablet tablet by 1 mouth twice daily. Active Cholecalciferol (Vitamin Take 5,000 0 D3) 25 mcg (1,000 unit) Units by cap mouth daily. Active carvediloL (COREG) 25 mg Take 25 mg by 0 05/17 tablet mouth twice 1 daily. Active Problems Problem Noted Date COVID-19 06/07/2021 Ischemic stroke 11/03/2020 Sleep disturbance 04/16/2020 Pancytopenia due to antineoplastic chemotherapy 05/2018 Other fatigue 03/07/2018 Tachycardia 03/06/2018 S/P autologous bone marrow transplantation 8 Overview: Formatting of this note might be differ ent from the original. Transplant History: Date of Transplant: 03/03/18 Transplant Type: Autologous Conditioning Regimen: Melphalan 200 Conditioning Regimen Type: Myeloablati ve Rationale for reduced/NST regimen: n/a Stem Cell Source: PSC Graft Manipulation: Not Applicable Diagnosis/Stage: IgG Lambda MM ISS 1 Disease Status at Transplant: VGPR (Ve ry Good [place]) Cytogenetic/Fish AT DIAGNOSIS: Cyto: n ormal, FISH: not done CMV Status:- Positive Blood Type - A Negative Cell Source: Peripheral, autologous, c ryopreserved Consents / Study# / Protocol#: 8322, bl ood/chemo, storage, autologous, apheresis, MMIIT Pretransplant Coordinator: JOY RODRIGUES RN History of hyperlipidemia 02/24/2018 Hypothyroidism 02/24/2018 Other pulmonary embolism without acute cor pulmonale 01/03/2018 Multiple myeloma 10/25/2017 Cancer Staging: Clinical: Unsigned Last Assessment & Plan: Formatting of this note might be differ ent from the original. A 62-year-old female patient with a known history of IgG kappa multiple myeloma diagnosed recently. P atient had compression of T6 with enhancing mass, there are no any signs of compression to the spinal cord, she was started on induction therapy us ing Cytoxan/Velcade/dexamethasone while in the hospital, also patient sta rted receiving palliative radiation therapy to T6 para radiation oncology. Patient still complaining of pain which is expected secondary to her myeloma, I informed the patient that mo stly after her myeloma respond to treatment her pain will resolve, nicol mary patient will need to follow-up with her local oncologist to start her on a new regimen using Revlimid/Velcade/dexamethasone. While the patient is here we will continue cycle 1 of Cytoxan/Velcade/dexamethason e until she complete her palliative radiation therapy which will be complet ed on 11/09/2016 Recommendations: Resume cycle 1 of Cytoxan/Velcade/dexam ethasone while she is in [place] Recommend to switch directly after that to RVD with a plan to complete 4 cycles of treatment Velcade 1.3 mg/m subcutaneous on day 1, 4, 8 and 11 Revlimid 25 mg orally daily 14 days on 1 week off Dexamethasone 40 mg orally on days 1, 8 , 15 Recommend the patient to see dentist in order to start her on monthly Zometa Recommend vitamin D 50,000 units weekly Recommend to start the patient on acycl ovir, aspirin, and Bactrim as prophylaxis for PCP Recommend to check myeloma markers sandip hly RTC in my clinic in 2 months Non-traumatic compression fracture of sixth thoracic vertebra 10/20/2017 Overview: Formatting of this note might be differ ent from the original. Enhancing lesion in T6 L ast Assessment & Plan: Formatting of this note might be differ ent from the original. 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 Patient is currently on treatment with Cytoxan/ Velcade/dexamethasone and receiving palliative radiation therapy. Her pain is uncontrolled most likely it is secondary to the myeloma, our recommend ation is to continue pain management and to switch her treatment to RVD once she sees her local oncologist Resolved Problems Problem Noted Date Resolved Date Chemotherapy induced nausea and vomiting 03/11/2018 06/29/2018 Chemotherapy induced diarrhea 03/11/2018 03/23/20 Hypokalemia 03/11/2018 03/15/2018 Neutropenic fever 03/10/2018 03/15/2018 Chemotherapy-induced nausea 03/06/2018 03/16/2018 Lightheadedness 03/06/2018 03/10/2018 Pancytopenia due to antineoplastic chemotherapy 03/05/2018 03/10/2018 Chemotherapy induced neutropenia 03/04/201803/15 Conditioning chemotherapy prior to peripheral blood s tem cell transplant 03/02/2018 03/04/2018 SOB (shortness of breath) 02/23/2018 03/04/2018 Stem cells transplant status 02/23/2018 8 Low grade fever 02/15/2018 03/04/2018 Thrombocytopenia 01/03/2018 03/10/2018 History of radiation therapy 11/11/2017 8 Overview: Formatting of this note is different fr om the original. Site Treatment Dates Technique Energy D ose/ Fraction (cGy) Total Dose (cGy) Fractions Missed Treatment Days T5-T7 spine 10/28/17 - 11/09/17 AP/PA 15X 250 2000 8 1 Concurrent systemic therapy: CyBorD Sari syndrome 11/04/2017 03/05/2018 Acute midline back pain 10/25/2017 03/10/2018 Mass of spine 10/20/2017 03/10/2018 HTN (hypertension) 03/05/2018 Encounters Care Team Description Date Type Specialty Trevor Lazo MD 06/07/2021 Hospital Oncology Encounter Candice Meza, [employer] COVID-19 (Primary Dx) 06/07/2021 Scheduled Urgent Care Telephone 06/07/2021 Travel Albina Han RN 06/07/2021 Documentation Suzy Yeboah MD Results (monoclonal antibody therapy trey luation) 06/07/2021 Telephone Urgent Care Trevor Lazo MD Care Coordination 06/07/2021 Telephone Oncology Trevor Lazo MD Care Coordination 05/27/2021 Telephone Oncology Trevor Lazo MD Multiple myeloma not having achieved rem ission (HCC) (Primary Dx); Other specified hypothyroidism; Pancytopenia due to antineoplastic chemotherapy (HCC); Ischemic stroke (HCC) 05/23/2021 Office Visit Oncology 05/23/2021 Travel Trevor Lazo MD Care Coordination 05/14/2021 Telephone Oncology Johanny Rod, [employer] Multiple myeloma not having achieved rem ission (HCC) (Primary Dx); Vitamin D deficiency 04/11/2021 Orders Only Oncology Trevor Lazo MD Appointment 04/09/2021 Telephone Oncology Trevor Lazo MD Care Coordination 03/27/2021 Telephone Oncology Johanny Rod [employer] Multiple myeloma not having achieved rem ission (HCC) (Primary Dx); S/P autologous bone marrow transplantation (HCC); Other fatigue; Ischemic stroke (HCC) 03/26/2021 Office Visit Oncology Telehealth Trevor Lazo MD Care Coordination 03/26/2021 Telephone Oncology 03/26/2021 Evelina Ortiz BMT Follow-up (3 year LTFU) 03/25/2021 Documentation Oncology from Last 3 Months Immunizations Name Administration Dates Next Due HEPATITIS B vaccine, 11/26/2018 unspecified (Historical) Hepatitis B Vaccine Adult 05/03/2019, 08/20/2018 3 Dose IM Hib conj vaccine, 4 dose 01/27/2019 (Deferred: - du plicate), 01/27/2019, (PRP-T) IM (ActHIB) 11/26/2018, 08/20/2018 IPV 01/27/2019, 08/20/2018 Meningococcal Conjug 08/20/2018 Vaccine IM (Menveo) Taylor Component 1 Meningococcal Conjug 08/20/2018 Vaccine IM (Menveo) [id number] Component 2 Pneumococcal Vaccine 05/03/2019 (23-Rosie Adult) Pneumococcal 01/27/2019, 11/26/2018, Vaccine(13-Rosie Peds/immunocompromised adult) Poliovirus vaccine, 11/26/2018 unspecified formulation Tdap Vaccine 01/27/2019, 11/26/2018, Zoster Vaccine 01/27/2019, 11/26/2018 Recombinant, Adjuvanted (shingles) IM (vial 2 of 2)(SHINGRIX) Zoster Vaccine 01/27/2019, 11/26/2018 Recombinant, adjuvant suspension component (vial 1 of 2)(SHINGRIX) Surgical History Surgery Date Site/Laterality Comments FOOT SURGERY Right HAND SURGERY Left Removal of carpal b ones TUMOR EXCISION left adrenal gland removal, and tumor removal ADRENAL GLAND SURGERY 11/02/2007 - Left 11/01/2008 Medical History Medical History Date Comments HTN (hypertension) HLD (hyperlipidemia) Back pain Non-traumatic compression fracture of 10/20/2017 Enhancing lesion in T6 sixth thoracic vertebra (HCC) DM (diabetes mellitus) (HCC) Only takes Metformin f or it; per patient and last Hb A1c low 5% range Hypothyroidism Family History Medical History Relation Name Comments Cancer Paternal Grandfather Relation Name Status Comments Paternal Grandfather Social History Date Tobacco Use Types Packs/Day [...] or suspected to have Coronavirus / COVID-19? Last Filed Vital Signs Reading Time Taken Comments Vital Sign 119/74 06/07/2021 2:17 PM CDT Blood Pressure 75 06/07/2021 2:17 PM CDT Pulse 36.9 C (98.4 F) 06/07/2021 2:17 PM CDT Temperature 15 06/07/2021 2:17 PM CDT Respiratory Rate 99% 06/07/2021 2:17 PM CDT Oxygen Saturation - - Inhaled Oxygen Concentration 80.2 kg (176 lb 12.8 oz) 05/23/2021 11:29 AM CDT Weight 167.6 cm (5' 5.98") 05/23/2021 11:29 AM CDT Height 28.55 05/23/2021 11:29 AM CDT Body Mass Index Plan of Treatment Health Maintenance Due Date Last Done Comments MEDICARE ANNUAL WELLNESS 1954 VISIT HEPATITIS C SCREENING 1972 PHYSICAL (COMPREHENSIVE) 1972 EXAM COLORECTAL CANCER 2004 SCREENING OSTEOPOROSIS 2019 SCREENING/MONITORING BREAST CANCER SCREENING 01/28/2020 01/27/2019, 02/01/2018 INFLUENZA VACCINE 08/02/2021 PNEUMONIA (PPSV23) 05/03/2024 05/03/2019, VACCINE (2 of 2 - PPSV23) 01/27/2019, 11/26/2018, Additional history exists DTAP/TDAP VACCINES (4 - 01/27/2029 01/27/2019, Td) 11/26/2018, 08/20/2018 SHINGLES RECOMBINANT Completed 01/27/2019, VACCINE 11/26/2018 Goals Goal Patient Associated Recent Progress Patient-Stat Aut hor Goal Type Problems ed? [facility] Azar Stewart RN Implants Device Identifier Shelf Expiration Date Model / Serial / L ot Implanted Type Area Manufactur er [id number] 12/02/2019 [id number] / N/A / [id number] Catheter 19cm 12fr Rodgers Right: Chest UNIDENTIFI Trifusion [place] 3 Lumen - Sn/A Wall E D MFG Implanted: Qty: 1 on 02/23/2018 by Cory Sanchez MD at [facility] [id number] 08/01/2021 [id number] / . / [id number] Device Closure 70cm 8fr .038in Right: Arterial TERUMO Angio-Seal Vip Bondek-Plus - S. MEDICAL Implanted: Qty: 1 on 11/03/2020 by Manuel King MD at [facility] Procedures Comments Procedure Name Priority Date/Time Associated Diag nosis HC CBC W/ AUTOMATED DIFF Routine 05/23/2021 Multi ple myeloma, 11:05 AM CDT remission status unspecified (HCC) HC COMPREHENSIVE Routine 05/23/2021 Multiple myel supa, METABOLIC PANEL 11:05 AM CDT remission status unspecified (HCC) HC ELECTROPHORESIS-SERUM Routine 05/23/2021 Multi ple myeloma, 11:05 AM CDT remission status unspecified (HCC) HC IGA Routine 05/23/2021 Multiple myelom a, 11:05 AM CDT remission status unspecified (HCC) HC KAPPA QNT FLC(KLFLC) Routine 05/23/2021 Multip le myeloma, 11:05 AM CDT remission status unspecified (HCC) from Last 3 Months Results * KAPPA/LAMBDA FREE LIGHT CHAINS (05/23/2021 11:05 AM CDT) [place], FLC 0.48 0.33 - 1.94 MG/DL [facility] Lambda, FLC 0.49 (L) 0.57 - 2.63 MG/DL [facility] [place]/Lambda 0.98 0.26 - 1.65 [facility] FLC Specimen Blood Performing Organization Address City/State/ZIP Code P alton Number [facility] [address] [place] [address] * CBC AND DIFF (05/23/2021 11:05 AM CDT) White Blood 6.4 4.5 - 11.0 K/UL [facility] Cells RBC 4.20 4.0 - 5.0 M/UL [facility] Hemoglobin 13.6 12.0 - 15.0 GM/DL [facility] Hematocrit 39.7 36 - 45 % [facility] MCV 94.4 80 - 100 FL [facility] MCH 32.3 26 - 34 PG [facility] MCHC 34.2 32.0 - 36.0 G/DL [facility] RDW 13.0 11 - 15 % [facility] Platelet Count 84 (L) 150 - 400 K/UL [facility] MPV 9.9 7 - 11 FL [facility] Neutrophils 72 41 - 77 % [facility] Lymphocytes 12 (L) 24 - 44 % [facility] Monocytes 14 (H) 4 - 12 % [facility] Eosinophils 1 0 - 5 % [facility] Basophils 1 0 - 2 % [facility] Absolute 4.70 1.8 - 7.0 K/UL [facility] Neutrophil Count Absolute Lymph 0.80 (L) 1.0 - 4.8 K/UL [facility] Count Absolute 0.90 (H) 0 - 0.80 K/UL [facility] Monocyte Count Absolute 0.10 0 - 0.45 K/UL [facility] Eosinophil Count Absolute 0.00 0 - 0.20 K/UL [facility] Basophil Count Specimen Blood Performing Organization Address City/State/ZIP Code P alton Number [facility] [address] [place] [address] * IMMUNOGLOBULINS-IGA,IGG,IGM (05/23/2021 11:05 AM CDT) IgG 545 (L) 762 - 1,488 MG/DL [facility] IgA 15 (L) 70 - 390 MG/DL [facility] IgM <20 (L) 38 - 328 MG/DL [facility] Specimen Blood Performing Organization Address City/[facility]/ZIP Code P alton Number [facility] [address] [place] [address] * ELECTROPHORESIS-SERUM PROTEIN (05/23/2021 11:05 AM CDT) Total 5.7 (L) 6.0 - 8.0 G/DL [facility] Protein-SEP Albumin % 64.0 48 - 68 % [facility] Alpha 1 % 5.1 2 - 6 % [facility] Alpha 2 % 11.8 5 - 15 % [facility] Beta %,Serum 10.4 9 - 17 % [facility] Gamma % 8.7 (L) 9 - 21 % [facility] Paraprotein 0.11 G/DL [facility] Interpretation SPIKE, PROBABLY MONOCLONAL, IN [facility] - SEP BETA/GAMMA REGION(S) Pathologist INTERPRETED BY ADELINE HOPKINS M.D. [facility] Signature By the PATH SIGNATURE ABOVE , I attest that I have personally formulated the final interpretation expressed in this report and that the above diagnosis is based upon my examination of the slides and/or other material indicated in this report. Specimen Blood Performing Organization Address [facility] [[email or web address]] Code P alton Number [facility] [address] [place] [address] * COMPREHENSIVE METABOLIC PANEL (05/23/2021 11:05 AM CDT) Sodium 140 137 - 147 MMOL/L [facility] Potassium 3.9 3.5 - 5.1 MMOL/L [facility] Chloride 103 98 - 110 MMOL/L [facility] Glucose 101 (H) 70 - 100 MG/DL [facility] Blood Urea 22 7 - 25 MG/DL [facility] Nitrogen Creatinine 0.92 0.4 - 1.00 MG/DL [facility] Calcium 9.0 8.5 - 10.6 MG/DL [facility] Total Protein 5.7 (L) 6.0 - 8.0 G/DL [facility] Total Bilirubin 1.0 0.3 - 1.2 MG/DL [facility] Albumin 3.9 3.5 - 5.0 G/DL [facility] Alk Phosphatase 64 25 - 110 U/L [facility] AST (SGOT) 22 7 - 40 U/L [facility] CO2 32 (H) 21 - 30 MMOL/L [facility] ALT (SGPT) 55 7 - 56 U/L [facility] Anion Gap 5 3 - 12 [facility] eGFR Non >60 >60 mL/min [facility] Comment: [place] The eGFR is not validated f or use in drug dosing adjustments. Continue to use estimated creatinine clearance per dosing reference text. Please contact the Clinical Pharmacist for questions. eGFR >60 >60 mL/min [facility] [place] Comment: The eGFR is not validated for use in drug dosing adjustments. Continue to use estimated creatinine clearance per dosing reference text. Please contact the Clinical Pharmacist for questions. 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 03/15/2018 3:11 PM Full Code 03/10/2018 9:50 PM Provider has discussed Code Status Yes w/Patient or Family? 02/24/2018 10:13 AM Full Code 02/23/2018 7:54 PM Provider has discussed Code Status No, more discussi on w/Patient or Family? needed 10/31/2017 12:57 AM Full Code 10/20/2017 9:32 PM Provider has discussed Code Status No, more discussi on w/Patient or Family? needed
--- OUTSIDE RECORDS SUMMARY | 2021-06-12 15:25 | XMS REPORT | Encounter Summary ---
Author Author [facility] Organization [facility] Address Unknown Phone Unavailable Care Team Providers Care Mammography Technician Name Role Phone Esperanza [place] [id number] Reason for Visit * Reason Comments Covid-19 Encounter Details Care Team Description Date Type Department Candice Meza, GREEN CHAINER-STORE CLERK CHECKER [address] [place] [address] COVID-19 (Primary Dx) 06/07/2021 Scheduled Specialty Screening : Telephone [facility] [address] [facility] [place] [address] Social History Date Tobacco Use Types Packs/Day [...] impairment: No documented as of this encounter Patient Instructions * Patient Instructions* Candice Meza, GREEN CHAINER-STORE CLERK CHECKER - 06/07/2021 12:00 PM CDT Images from the original note were not included. Imdevimab (Emergency Use Authorization) Injection for IV 120 mg/mL Uses For treating COVID-19 (coronavirus). Instructions This is an IV medicine. It is given through a sterile tube directly into the vei n by a healthcare provider. This medicine is given gradually through the IV line. This medicine should be given over 20-50 minutes. This medicine should be given by a trained health care provider. You must be monitored by a healthcare professional for at least 1 hour after eac h dose is given. Please tell your doctor and pharmacist about all the medicines you take. Include both prescription and aqcy-cco-kpsxcxf medicines. Also tell them about any marla mins, herbal medicines, or anything else you take for your health. If your symptoms do not improve or they worsen while on this medicine, contact y our doctor. This medicine is usually combined with another medicine to treat your condition. It is very important that you keep all appointments for medical exams and tests while on this medicine. Continue to wear a mask, practice social distancing, and follow other safety branden delines to protect yourself and those around you until otherwise directed. Cautions This medicine is not recommended for use in children younger than 12. Tell your doctor and pharmacist if you ever had an allergic reaction to a medici ne. Symptoms of an allergic reaction can include trouble breathing, skin rash, i tching, swelling, or severe dizziness. Tell your doctor or nurse right away if dizziness, trouble breathing, fever, chi lls, nausea, headache, or muscle pain develop while the medicine is being given. The medicine may need to be stopped or given at a slower rate. Tell the doctor or pharmacist if you are , planning to be , or b reastfeeding. Ask your pharmacist if this medicine can interact with any of your other medicin es. Be sure to tell them about all the medicines you take. Contact your doctor immediately if you experience any swelling of your hands, fa ce, lips, eyes, throat or tongue. Please tell all your doctors and dentists that you are on this medicine before t hey provide care. Do not start or stop any other medicines without first speaking to your doctor o r pharmacist. Side Effects The following is a list of some common side effects from this medicine. Please s peak with your doctor about what you should do if you experience these or other side effects. reaction at the area of the injection (pain, redness, swelling) Call your doctor or get medical help right away if you notice any of these more serious side effects: wheezing or difficulty breathing dizziness swelling of the face, mouth, tongue or throat fever or chills headaches low blood pressure muscle pain nausea A few people may have an allergic reaction to this medicine. Symptoms can includ e difficulty breathing, skin rash, itching, swelling, or severe dizziness. If yo u notice any of these symptoms, seek medical help quickly. Extra Please speak with your doctor, nurse, or pharmacist if you have any questions ab out this medicine. [email or web address] IMPORTANT NOTE: This document tells you briefly how to take your medicine, but i t does not tell you all there is to know about it.Your doctor or pharmacist may give you other documents about your medicine. Please talk to them if you have an y questions.Always follow their advice. There is a more complete description of this medicine available in Mauritanian.Scan this code on your smartphone or tablet o r use the web address below. You can also ask your pharmacist for a printout. If you have any questions, please ask your pharmacist. 2020 [employer]. Casirivimab (Emergency Use Authorization) Injection for IV 120 mg/mL Uses For treating COVID-19 (coronavirus). Instructions This is an IV medicine. It is given through a sterile tube directly into the vei n by a healthcare provider. This medicine is given gradually through the IV line. This medicine should be given over 20-50 minutes. This medicine should be given by a trained health care provider. You must be monitored by a healthcare professional for at least 1 hour after eac h dose is given. Please tell your doctor and pharmacist about all the medicines you take. Include both prescription and obqk-qqx-zcbgqmw medicines. Also tell them about any marla mins, herbal medicines, or anything else you take for your health. If your symptoms do not improve or they worsen while on this medicine, contact y our doctor. This medicine is usually combined with another medicine to treat your condition. It is very important that you keep all appointments for medical exams and tests while on this medicine. Continue to wear a mask, practice social distancing, and follow other safety branden delines to protect yourself and those around you until otherwise directed. Cautions This medicine is not recommended for use in children younger than 12. Tell your doctor and pharmacist if you ever had an allergic reaction to a medici ne. Symptoms of an allergic reaction can include trouble breathing, skin rash, i tching, swelling, or severe dizziness. Tell your doctor or nurse right away if dizziness, trouble breathing, fever, chi lls, nausea, headache, or muscle pain develop while the medicine is being given. The medicine may need to be stopped or given at a slower rate. Tell the doctor or pharmacist if you are , planning to be , or b reastfeeding. Ask your pharmacist if this medicine can interact with any of your other medicin es. Be sure to tell them about all the medicines you take. Contact your doctor immediately if you experience any swelling of your hands, fa ce, lips, eyes, throat or tongue. Please tell all your doctors and dentists that you are on this medicine before t hey provide care. Do not start or stop any other medicines without first speaking to your doctor o r pharmacist. Side Effects The following is a list of some common side effects from this medicine. Please s peak with your doctor about what you should do if you experience these or other side effects. reaction at the area of the injection (pain, redness, swelling) Call your doctor or get medical help right away if you notice any of these more serious side effects: wheezing or difficulty breathing dizziness swelling of the face, mouth, tongue or throat fever or chills headaches low blood pressure muscle pain nausea A few people may have an allergic reaction to this medicine. Symptoms can includ e difficulty breathing, skin rash, itching, swelling, or severe dizziness. If yo u notice any of these symptoms, seek medical help quickly. Extra Please speak with your doctor, nurse, or pharmacist if you have any questions ab out this medicine. [email or web address] IMPORTANT NOTE: This document tells you briefly how to take your medicine, but i t does not tell you all there is to know about it.Your doctor or pharmacist may give you other documents about your medicine. Please talk to them if you have an y questions.Always follow their advice. There is a more complete description of this medicine available in Mauritanian.Scan this code on your smartphone or tablet o r use the web address below. You can also ask your pharmacist for a printout. If you have any questions, please ask your pharmacist. 2020 [employer]. documented in this encounter Progress Notes * Candice Meza APRN-NP - 06/07/2021 12:00 PM CDT 65 y.o. Wt Readings from Last 1 Encounters: 05/23/21 80.2 kg (176 lb 12.8 oz) Estimated body mass index is 28.55 kg/m as calculated from the following: Height as of 05/23/21: 167.6 cm (65.98"). Weight as of 05/23/21: 80.2 kg (176 lb 12.8 oz). Hysterectomy The patient was not asked if she was . COVID-19 Results Latest Ref Rng & Units 11/03/2020 COVID-19 PCR DN-NOT DETECTED NOT DETECTED COVID-19 Symptoms: Yes, Cough, Sore Throat, Shortness of Breath, Loss of sense o f taste and/or smell, Chest tightness, Congestion, Fatigue, Persistent Headache and Runny Nose Date of symptom onset: 06/02/21 Has the patient been vaccinated for COVID 19? No Increased O2 requirements from baseline?: No Was this test greater than 10 days ago?No (if no, then ask next question) Has the patient previously tested positive for COVID-19? Yes, previously tested positive, but symptoms indicate NEW, acute infection; continue screening. Is this patient currently hospitalized or have they been hospitalized for COVID- 19 in the past 90 days? No Is the patient currently ? N/A If yes, is the patient willing to proceed with screening appointment with provid er despite unclear risks? N/A Is the patient currently ?: N/A If yes, is the patient willing to to stop for greater than 21 days from infusion ? N/A Obtained patient's verbal consent to treat them and their agreement to [facility] and NPP via this telehealth visit during the Coronavirus Public He alth Emergency Has the patient had a positive test greater than 10 days ago? Yes, previously t ested positive in fall, but symptoms indicate NEW, acute infection; cont inue screening. Has the patient received their first COVID vaccine dose more than 15 days ago? 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 Is patient 12-17 or over 55 years of age? Yes, she is 65 years old The Monoclonal Antibody Therapy Bamlanivimab Infusion was discussed with the geno gardner, and the patient verbally consented to receive services: The patient understands that Bamlanivimab or Casirivimab-Imdevimab may be ad ministered at the pharmacies discretion. The patient understands that due to limited amount of data there is little i nformation regarding the effectiveness of the therapy The patient understands that this therapy is being utilized under Emergency Authorization Use (EAU) and is considered investigational The patient understands that there is a risk of anaphylaxis associated with the infusion The patient understands any other risks associated with the infusion The patient understands that if they are a female patient and not post-menop ausal they will be required to take a point of care urine test prior t o the initiation of the infusion The patient understands they are not to receive the COVID-19 vaccine until 9 0 days post transfusion. Preferred contact number and person: Arti Arredondo [phone] [address] via telephone Total time 15 minutes. documented in this encounter Plan of Treatment Not on filedocumented as of this encounter Goals Goal Patient Associated Recent Progress Patient-Stat Aut hor Goal Type Problems ed? [facility] No Azar Castillo, KAITLYN documented as of this encounter Visit Diagnoses Diagnosis COVID-19 - Primary documented in this encounter Additional Health Concerns Assessment Noted Time A fall risk assessment has been completed for the pat ient 06/07/2021 2:17 PM CDT PHQ-2 Depression Total Score: 0 05/03/2019 11:50 AM CDT documented as of this encounter
--- OUTSIDE RECORDS SUMMARY | 2021-06-12 15:25 | XMS REPORT | Encounter Summary ---
Author Author [facility] Organization [facility] Address Unknown Phone Unavailable Care Team Providers Care Construction Stonemason Name Role Phone Esperanza [place] [address] Encounter Details Care Team Description Date Type Department 06/07/2021 Travel Social History Date Tobacco Use Types Packs/Day Years Used Never Smoker Smokeless Tobacco: Never Used Drinks/Week oz/Week Comments Alcohol Use No Sex Assigned at Date Recorded Female 04/13/2020 11:27 PM CDT Date Recorded COVID-19 Exposure Response 06/07/2021 2:10 PM CDT In the last month, have you been in contact with [facility] to assess someone who was confirmed or [...] Patient-Stat Aut hor Goal Type Problems ed? [facility] No Azar Castillo RN documented as of [...]
--- OUTSIDE RECORDS SUMMARY | 2021-06-12 15:26 | XMS REPORT | Encounter Summary ---
Author Author [facility] Organization [facility] Address Unknown Phone Unavailable Care Team Providers Care Transit Survey Worker Name Role Phone Juan Esperanza [place] [address] Reason for Visit * Reason Onset Date Comments Results 06/07/2021 monoclonal antibody therapy evaluation Encounter Details Care Team Description Date Type Department Suzy Yeboah MD [address] [facility] Lvl [address] [place] [id number] Results (monoclonal antibody therapy trey luation) 06/07/2021 Telephone Specialty Screening : [facility] [address] [place] [address] Social History Date Tobacco Use Types Packs/Day [...] impairment: No documented as of this encounter Miscellaneous Notes * Telephone Encounter - Veronica Macias BSN - 06/07/2021 11:42 AM CDT 65 y.o. Wt Readings from Last [...] than 21 days from infusion ? N/A Does the patient meet criteria for monoclonal antibody treatment?: Yes If yes, would patient like to proceed with evaluation by telehealth provider?: Y es Date and time of Telehealth appointment: 06/07/21 at 1200, telephone appt documented in this encounter Plan of Treatment Not on filedocumented as of this encounter Goals Goal Patient Associated Recent Progress Patient-Stat Aut hor Goal Type Problems ed? [facility] Azar Stewart RN documented as of this encounter Visit Diagnoses Not on filedocumented in this encounter Additional Health Concerns Assessment Noted Time A fall risk assessment has been completed for the pat ient 06/07/2021 2:17 PM CDT PHQ-2 Depression Total Score: 0 05/03/2019 11:50 AM CDT documented as of this encounter
--- OUTSIDE RECORDS SUMMARY | 2021-06-12 15:26 | XMS REPORT | Encounter Summary ---
Author Author [facility] Organization [facility] Address Unknown Phone Unavailable Care Team Providers Care Tank Cleaning Supervisor Name Role Phone Esperanza [place]inez [place] [address] Reason for Visit * Reason Comments Follow Up Encounter Details Care Team Description Date Type Department Trevor Lazo MD [address] [place], [place] [phone] Multiple myeloma not having achieved rem ission (HCC) (Primary Dx); Other specified hypothyroidism; Pancytopenia due to antineoplastic chemotherapy (HCC); Ischemic stroke (HCC) 05/23/2021 Office Visit Oncology: [address] [place], [place] [phone] Social History Date Tobacco Use Types Packs/Day [...] Signs Reading Time Taken Comments Vital Sign 140/65 05/23/2021 11:29 AM CDT Blood Pressure 62 05/23/2021 11:29 AM CDT Pulse - - Temperature 16 05/23/2021 11:29 AM CDT Respiratory Rate 97% 05/23/2021 11:29 AM CDT Oxygen Saturation - - Inhaled Oxygen Concentration 80.2 kg (176 lb 12.8 oz) 05/23/2021 11:29 AM CDT Weight 167.6 cm (5' 5.98") 05/23/2021 11:29 AM CDT Height 28.55 05/23/2021 11:29 AM CDT Body Mass Index documented in this encounter [...] this encounter Patient Instructions * Patient Instructions* Chata Rodriguez RN - 05/23/2021 11:40 AM CDT Your Care Team: Dr. Trevor Lazo Goal Umpire Multiple Myeloma and Plasma Cell Disorder Specialist Nona Morales APRN, DNP Advanced Practice Nurse Clinical Nurse Coordinators (CNCs) Lashay Jimenes RN, BSN Nettie Quispe RN, BSN Mariama Rodriguez RN, BSN If you have a question for our team, please send us a message on [employer] [email or web address] Phone Numbers: Scheduling # [phone] Nurse # [phone] Messages left on the nurses' line are checked Thursday thru Thursday 8:00 AM to 3:30 PM. If leaving a voicemail, please include your full name, date of and a brief message with the reason for your call. Evening, weekend and holiday on-call # [phone] For urgent needs after hours, please ask for the oncologist on-call to be paged. Notes: - Allow one business week for our office to complete any requested paperwork (FM [place], etc.) Fax to [phone] - Allow three business days for all medication refills. Please call your pharmac y first to check for available refills. documented in this encounter Progress Notes * Trevor Lazo MD - 05/23/2021 11:40 AM CDT Date of Service: 05/23/2021 Subjective: Reason for Visit: Follow Up Arti Arredondo is a 65 y.o. female who is here for follow-up. 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 A CT scan was perf ormed at that time and it showed an aggressive lytic lesion of T6 with epidural mass resulting in mild central spinal stenosis and moderate to severe right neur al foraminal stenosis at T6-T7. Patient had a biopsy of that mass on 10/22/2017 that confirmed diagnosis of monoclonal plasma cell. Patient also states that s he had a history of MGUS unfortunately she did not follow-up with her oncologist . Her initial laboratory test showed WBC 7.1, hemoglobin 13.9, hematocrit 40.9, platelet 169, BUN 20, creatinine 0.75, total protein 8, calcium 9.5, total bili marcano 0.5, albumin 4.1, LDH 151, beta-2 microglobulin 2.4, IgG 1865, serum M pro tein 1.47 g/dL, free kappa light chain 35.3 mg/dL, free lambda light chain 4.0 m g/dL, ratio 8.8, serum immunofixation showed IgG lambda paraprotein a bone marro w biopsy showed 60% cellularity with 30% monoclonal plasma cell with normal cyto genetics. Skeletal survey showed moderate compression deformity of T6. Because of the severe pain we were unable to screen the patient for our clinical trial so we started her on treatment as soon as possible. Patient was started on Cyto danya/Velcade/dexamethasone while she was in the hospital and she was referred to have kyphoplasty of T6 unfortunately a decision was made to start her on radiati on therapy as palliative treatment. Patient is currently receiving radiation th erapy and her pain has not improved. I discussed in depth with the patient that we will need to resume her treatment as it is the best option for treating her pain 06/28/2018: Pt completed induction therapy with CyBorD and RVD followed by HDCT/A SCT on 03/02/2018. Recent BMBx showed 2% polyclonal PC. Pt is currently on mainten ance therapy using lenalidomide 01/2021: Pt was started on Daratumumab/Velcade/dexamethasone due to PD, pt respon ded to treatment well Multiple myeloma (HCC) 10/22/2017 Initial Diagnosis Multiple myeloma (HCC) 10/25/2017 - 11/25/2017 Chemotherapy CyBorD x 1 cycle 10/27/2017 - Radiation Palliative XRT to T6 because of pain 11/25/2017 - 02/10/2018 Chemotherapy RVD x 4 cycles 03/02/2018 Transplant Ashley 200 mg/m2/ASCT 07/05/2018 - Chemotherapy Lenalidomide (maintenace) Review of Systems Constitutional: Negative for chills, fatigue and fever. HENT: Negative for congestion and mouth sores. Eyes: Negative for photophobia and visual disturbance. Respiratory: Negative for apnea, cough, choking and wheezing. Cardiovascular: Negative for chest pain, palpitations and leg swelling. Gastrointestinal: Negative for abdominal pain, constipation, diarrhea, nausea an d vomiting. Genitourinary: Negative for dysuria and hematuria. Musculoskeletal: Positive for arthralgias. Negative for back pain and neck pain. Skin: Negative for pallor and rash. Neurological: Negative for tremors, weakness and headaches. Hematological: Negative for adenopathy. Does not bruise/bleed easily. Psychiatric/Behavioral: Negative for agitation, behavioral problems and confusio n. Objective: apixaban (ELIQUIS) 5 mg tablet Take one tablet by mouth twice daily. atorvastatin (LIPITOR) 40 mg tablet Take one tablet by mouth daily. carvediloL (COREG) 25 mg tablet Take 25 mg by mouth twice daily. Cholecalciferol (Vitamin D3) 25 mcg (1,000 unit) cap Take 5,000 Units by vincenzo th daily. cyclosporine (RESTASIS) 0.05 % ophthalmic emulsion Apply 1 drop to both eyes twice daily. duloxetine DR (CYMBALTA) 60 mg capsule Take 60 mg by mouth every 24 hours. fenofibrate (TRIGLIDE) 160 mg tablet Take 160 mg by mouth daily. Take with f ood. levothyroxine (SYNTHROID) 100 mcg tablet Take 100 mcg by mouth daily 30 keshia mandie before breakfast. levothyroxine (SYNTHROID) 125 mcg tablet Take 100 mcg by mouth daily 30 keshia mandie before breakfast. montelukast (SINGULAIR) 10 mg tablet Take 10 mg by mouth at bedtime daily. morphine SR (MS CONTIN) 15 mg tablet Take 15 mg by mouth every 24 hours oxyCODONE (ROXICODONE, OXY-IR) 5 mg tablet Take 5 mg by mouth every 4 hours as needed for Pain pregabalin (LYRICA) 75 mg capsule Take 1 capsule by mouth three times daily. turmeric root extract 500 mg cap Take 1 capsule by mouth twice daily. vitamins, B complex tab Take 1 tablet by mouth at bedtime daily. Vitals: 05/23/21 1129 BP: (!) 140/65 BP Source: Arm, Left Upper Patient Position: Sitting Pulse: 62 Resp: 16 SpO2: 97% Weight: 80.2 kg (176 lb 12.8 oz) Height: 167.6 cm (65.98") PainSc: Zero Body mass index is 28.55 kg/m. Pain Score: Zero Medical History: Diagnosis Date Back pain DM (diabetes mellitus) (HCC) Only takes Metformin for it; per patient and last Hb A1c low 5% range HLD (hyperlipidemia) HTN (hypertension) Hypothyroidism Non-traumatic compression fracture of sixth thoracic vertebra (HCC) 10/20/20 17 Enhancing lesion in T6 Surgical History: Procedure Laterality Date ADRENAL GLAND SURGERY Left 2008 FOOT SURGERY Right HAND SURGERY Left Removal of carpal bones TUMOR EXCISION left adrenal gland removal, and tumor removal Family History Problem Relation Age of Onset Cancer Paternal Grandfather Social History Socioeconomic History Marital status: Spouse name: Hugo Number of children: 5 Years of education: 2 Highest education level: Not on file Occupational History 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. Tobacco Use Smoking status: Never Smoker Smokeless tobacco: Never Used Substance and Sexual Activity Alcohol use: No Drug use: No Sexual activity: Not on file Other Topics Concern Not on file Social History Narrative Not on file Pain Addressed: Current regimen working to control pain. Patient Evaluated for a Clinical Trial: No treatment clinical trial available fo r this patient. Eastern Cooperative Oncology Group performance status is 1, Restricted in physic ally strenuous activity but ambulatory and able to carry out work of a light or sedentary nature, e.g., light house work, office work. Physical Exam Vitals reviewed. Constitutional: General: She is not in acute distress. Appearance: She is well-developed. HENT: Head: Normocephalic and atraumatic. Eyes: Pupils: Pupils are equal, round, and reactive to light. Cardiovascular: Rate and Rhythm: Normal rate and regular rhythm. Heart sounds: Normal heart sounds. No murmur. Pulmonary: Effort: Pulmonary effort is normal. No respiratory distress. Breath sounds: Normal breath sounds. No wheezing or rales. Abdominal: General: Bowel sounds are normal. There is no distension. Palpations: Abdomen is soft. Tenderness: There is no abdominal tenderness. Musculoskeletal: General: Normal range of motion. Cervical back: Normal range of motion and neck supple. Skin: General: Skin is warm and dry. Findings: No erythema or rash. Neurological: Mental Status: She is alert and oriented to person, place, and time. Psychiatric: Behavior: Behavior normal. CBC w/Diff Lab Results Component Value Date/Time WBC 6.4 05/23/2021 11:05 AM RBC 4.20 05/23/2021 11:05 AM HGB 13.6 05/23/2021 11:05 AM HCT 39.7 05/23/2021 11:05 AM MCV 94.4 05/23/2021 11:05 AM MCH 32.3 05/23/2021 11:05 AM MCHC 34.2 05/23/2021 11:05 AM RDW 13.0 05/23/2021 11:05 AM PLTCT 84 (L) 05/23/2021 11:05 AM MPV 9.9 05/23/2021 11:05 AM Lab Results Component Value Date/Time NEUT 72 05/23/2021 11:05 AM ANC 4.70 05/23/2021 11:05 AM LYMA 12 (L) 05/23/2021 11:05 AM ALC 0.80 (L) 05/23/2021 11:05 AM YISSEL 14 (H) 05/23/2021 11:05 AM AMC 0.90 (H) 05/23/2021 11:05 AM EOSA 1 05/23/2021 11:05 AM AEC 0.10 05/23/2021 11:05 AM BASA 1 05/23/2021 11:05 AM ABC 0.00 05/23/2021 11:05 AM Comprehensive Metabolic Profile Lab Results Component Value Date/Time NA 140 05/23/2021 11:05 AM K 3.9 05/23/2021 11:05 AM CL 103 05/23/2021 11:05 AM CO2 32 (H) 05/23/2021 11:05 AM GAP 5 05/23/2021 11:05 AM BUN 22 05/23/2021 11:05 AM CR 0.92 05/23/2021 11:05 AM GLU 101 (H) 05/23/2021 11:05 AM Lab Results Component Value Date/Time CA 9.0 05/23/2021 11:05 AM PO4 3.9 11/05/2020 03:30 AM ALBUMIN 3.9 05/23/2021 11:05 AM TOTPROT 5.7 (L) 05/23/2021 11:05 AM ALKPHOS 64 05/23/2021 11:05 AM AST 22 05/23/2021 11:05 AM ALT 55 05/23/2021 11:05 AM TOTBILI 1.0 05/23/2021 11:05 AM GFR >60 05/23/2021 11:05 AM GFRAA >60 05/23/2021 11:05 AM Lab Results Component Value Date/Time Immuno Fix-Serum IGG LAMBDA PARAPROTEIN 03/11/2021 09:17 AM Immuno Fix-URINE NO PARAPROTEIN SEEN 01/31/2018 05:34 AM [place], FLC 0.48 05/23/2021 11:05 AM Lambda, FLC 0.49 (L) 05/23/2021 11:05 AM [place]/Lambda FLC 0.98 05/23/2021 11:05 AM B2 Microglobulin 1.9 02/01/2018 08:04 AM Total Protein-SEP 5.7 (L) 05/23/2021 11:05 AM Albumin % 64.0 05/23/2021 11:05 AM Alpha 1 % 5.1 05/23/2021 11:05 AM Alpha 2 % 11.8 05/23/2021 11:05 AM Beta %,Serum 10.4 05/23/2021 11:05 AM Gamma % 8.7 (L) 05/23/2021 11:05 AM Paraprotein 0.11 05/23/2021 11:05 AM Interpretation - SEP 05/23/2021 11:05 AM SPIKE, PROBABLY MONOCLONAL, IN BETA/GAMMA REGION(S) Assessment and Plan: Multiple myeloma (HCC) A 65-year-old female patient with a known history of IgG kappa multipl e myeloma diagnosed recently. Patient had compression of T6 with enhancing mass , there are no any signs of compression to the spinal cord, she was started on i nduction therapy using Cytoxan/Velcade/dexamethasone while in the hospital, also patient completed palliative radiation therapy to T6 para radiation oncology. Pt completed induction therapy with CyBorD and RVD, followed by HDCT/ASCT on 2017. BMBx on day 100 showed 2% polyclonal PC, her recent Myeloma markers showed FKLC 2.4, FLLC 2.4, FKLC/FLLC ratio 1.00, serum M prtn 0. Pt achieved at least sCR awaiting if pt also achieved negative MRD. I discussed with the pt the need to start maintenance therapy using lenalidomide Role of maintenance in myeloma was discussed. Revlimid has been used in both SHANEL GB and IFM trials. CALGB data showed overall survival. Both trials showed improv ed time to progression. We discussed the data regarding second Primary malignanc ies. CALGB and IFM data were discussed. The need for close monitoring of counts, marrow examination with cytogenetics as needed basis and proper health maintena nce and its importance were stressed. One full adult aspirin to be taken to prev ent VTE. He unhderstood. If the ANC is above 1000, we may use 10 mg/day dosage o n the other hand if the ANC falls below 1000, then appropriate dose reduction is justified. Monitoring of CBC is necessary. Discussed with the patient regarding the role of bisphosphonates in myeloma bone disease. We also explained the warning sign and symptoms of ONJ. Patient is to report any jaw tenderness, numbness and needs to inform dentist that he/she is b eing treated with a bisphosphonate. Creatinine needs to be monitored. We usually recommend monthly IV administration up to 2 years and thereafter if necessary at a lesser frequency/intervals. There is some anti myeloma property of bisphopho nates as well. Patient was given ample opportunity to ask questions, discuss alt ernatives and answers were provided. Vit D level should also be checked and repl aced accordingly. BMBx on 06/2019 showed 3% Polyclonal PC. Patient had undetectable paraproteinemia until her labs in August 2020 but labs then showed a monoclonal protein of 0.39 g/dl. Patient had a stroke in November 2020 and lenalidomide was discontinued. : Pt is here as a f/u regarding her myeloma work up. Her recent Myeloma m arkers showed FKLC 1.29, FLLC 9.4, FKLC/FLLC ratio 0.14, serum M prtn 0.89. Base d on these results will discuss with the pt to start treatment using Neida/Blu/de x 05/2021: Pt was started on Daratumumab/Velcade/dexamethasone per the CASTOR trial , pt responded to the treatment well. Her recent Myeloma markers showed FKLC 0.4 8, FLLC 0.49, FKLC/FLLC ratio 0.98, serum M prtn 0.11. Recommendations: Continue Daratumumab/Velcade/dexamethasone Q21 Days per the CATSOR trial as the following: Daratumumab as follows: Cycles 1 to 3: 1800 mg SQ once per day on days 1, 8, 15 Cycle 4 onwards: 1800 mg SQ once on day 1 Bortezomib Cycles 1 to 8: 1.0 mg/m2 SC once per day on days 1, 4, 8, 11 (dose re duced due to thrombocytopenia) Dexamethasone 20 mg weekly After completion of 8 cycles pt can proceed with maintenance therapy using Darat umumab Q4W Continue Eliquis 5 mg BID D/C Zometa Pt will f/u with her local oncologist Dr. Larkin to start treatment RTC in 3 months Stroke in November 2020 - Patient has recovered well from recent stroke. Lenalidomide can increase risk of thrombosis, but it is unclear whether it was the causative factor here, as ot her factors could have been at play as well, including a COVID infection she had several months prior to stroke. 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 Patient is cu rrently on treatment with RVD, Pain is better controlled with pain management. I recommend to consider Kyphoplasty of T6 if her pain worsened Pulmonary embolism/Recent Stroke: - Continue eliquis 5mg BID. Compression Vertebrae fracture: Pt received XRT in the past, still on pain medication treatment. Recommendations: Continue pain treatment Trevor Lazo M.D [employer] [facility] Internal medicine Division of Hematologic Malignancies and Cellular Therapeutics Pager [phone] documented in this encounter Plan of Treatment Not on filedocumented as of this encounter Goals Goal Patient Associated Recent Progress Patient-Stat Aut hor Goal Type Problems ed? [facility] No Azar Castillo RN documented as of this encounter Visit Diagnoses Diagnosis Multiple myeloma not having achieved re mission (HCC) - Primary Multiple myeloma, without mention of fair ving achieved remission Other specified hypothyroidism Pancytopenia due to antineoplastic chem otherapy (HCC) Antineoplastic chemotherapy induced walls cytopenia Ischemic stroke (HCC) documented in this encounter Historical Medications * This list may reflect changes made after this encounter. Start Date End Date Medication Sig Dispensed Refills 05/17/2021 carvediloL (COREG) 25 mg Take 25 mg by 0 tablet mouth twice daily. added in this encounter Additional Health Concerns Assessment Noted Time A fall risk assessment has been completed for the pat ient 05/23/2021 11:29 AM CDT PHQ-2 Depression Total Score: 0 05/03/2019 11:50 AM CDT documented as of this encounter
--- OUTSIDE RECORDS SUMMARY | 2021-06-12 15:26 | XMS REPORT | Encounter Summary ---
Author Author [facility] Organization [facility] Address Unknown Phone Unavailable Care Team Providers Care Mild Disabilities Teacher Name Role Phone Esperanza Martinez [place] [address] Reason for Visit * Reason Onset Date Comments Care Coordination 05/14/2021 Encounter Details Care Team Description Date Type Department Trevor Lazo MD [address] [facility] [place] [address] [phone] Care Coordination 05/14/2021 Telephone Oncology: [facility] [address] [place] [address] Social History Date Tobacco Use Types Packs/Day Years Used Never Smoker Smokeless Tobacco: Never Used Drinks/Week oz/Week Comments Alcohol Use No Sex Assigned at Date Recorded Female 04/13/2020 11:27 PM CDT documented as of this encounter Functional Status [...] encounter Miscellaneous Notes * Telephone Encounter - Chata Rodriguez, KAITLYN - 05/14/2021 3:39 PM CDT Spoke with nurse (patients local oncologist). Per nurse patient had b een started on treatment. Nurse to fax recent office note and labs. Ph: documented in this encounter Plan of Treatment Not on filedocumented as of this encounter Goals Goal Patient Associated Recent Progress Patient-Stat Aut hor Goal Type Problems ed? [facility] No Azar Castillo RN documented as of this encounter Visit Diagnoses Not on filedocumented in this encounter Additional Health Concerns Assessment Noted Time A fall risk assessment has been completed for the pat ient 02/14/2021 10:43 AM CDT PHQ-2 Depression Total Score: 0 05/03/2019 11:50 AM CDT documented as of this encounter
--- OUTSIDE RECORDS SUMMARY | 2021-06-12 15:26 | XMS REPORT | Encounter Summary ---
Author Author [facility] Organization [facility] Address Unknown Phone Unavailable Care Team Providers Care Radiophone Operator Name Role Phone Esperanza [place] [address] Encounter Details Care Team Description Date Type Department 05/23/2021 Travel Social History Date Tobacco Use Types [...] Patient-Stat Aut hor Goal Type Problems ed? [facility] No Azar Castillo RN documented as of this encounter Visit Diagnoses Not on filedocumented in this encounter Additional Health Concerns Assessment Noted Time A fall risk assessment has been completed for the pat ient 05/23/2021 11:29 AM CDT PHQ-2 Depression Total Score: 0 05/03/2019 11:50 AM CDT documented as of this encounter
--- OUTSIDE RECORDS SUMMARY | 2021-06-12 15:26 | XMS REPORT | Clinical Summary ---
Author Author [facility] Organization [facility] Address Unknown Phone Unavailable Care Team Providers Care Tobacco Prevention Health Educator Name Role Phone PCP Unavailable Allergies Not on File Medications Not on file Active Problems Not on file Social History Date Tobacco Use Types Packs/Day Years Used Never Assessed Sex Assigned at Date Recorded Not on file Last Filed Vital Signs Not on file Plan of Treatment Not on file Results Not on filefrom Last 3 Months
--- OUTSIDE RECORDS SUMMARY | 2021-06-12 15:26 | XMS REPORT | Encounter Summary ---
Author Author [facility] Organization [facility] Address Unknown Phone Unavailable Care Team Providers Care Home Office Representative Name Role Phone Esperanza [place] [address] Reason for Visit * Reason Onset Date Comments Care Coordination 06/07/2021 Encounter Details Care Team Description Date Type Department Trevor Lazo MD [address] [facility] [place] [address] [phone] Care Coordination 06/07/2021 Telephone Oncology: [address] [place] [address] Social History Date Tobacco Use Types Packs/Day [...] encounter Miscellaneous Notes * Telephone Encounter - Rupinder Jimenes RN - 06/07/2021 10:33 AM CDT Patient's called stating patient tested COVID positive 06/06. Wondering if patient could get an antibody infusion. Per Dr. Lazo, highly encouraged. Pr ovided COVID hotline number to patient's . Agreeable to plan. Will contin ue to follow. documented in this encounter Plan of Treatment Not on filedocumented as of this encounter Goals Goal Patient Associated Recent Progress Patient-Stat Aut hor Goal Type Problems ed? [facility] No Azar Castillo, KAITLYN documented as of this encounter Visit Diagnoses Not on filedocumented in this encounter Additional Health Concerns Assessment Noted Time A fall risk assessment has been completed for the pat ient 06/07/2021 2:17 PM CDT PHQ-2 Depression Total Score: 0 05/03/2019 11:50 AM CDT documented as of this encounter
--- OUTSIDE RECORDS SUMMARY | 2021-06-12 15:26 | XMS REPORT | Encounter Summary ---
Author Author [facility] Organization [facility] Address Unknown Phone Unavailable Care Team Providers Care Cork Molder Name Role Phone Esperanza Martinez [place] [address] Reason for Visit * Reason Onset Date Comments Care Coordination 05/27/2021 Encounter Details Care Team Description Date Type Department Trevor Lazo MD [address] [facility] [place] [address] [phone] Care Coordination 05/27/2021 Telephone Oncology: [address] [place] [address] Social History Date Tobacco Use Types Packs/Day [...] Miscellaneous Notes * Telephone Encounter - Chata Rodriguez RN - 05/27/2021 12:56 PM CDT Faxed recent office note to at [facility] [employer]. [phone] documented in this encounter Plan of Treatment Not on filedocumented as of this encounter Goals Goal Patient Associated Recent Progress Patient-Stat Aut hor Goal Type Problems ed? [facility] No Azar Castillo RN documented as of this encounter Visit Diagnoses Not on filedocumented in this encounter Additional Health Concerns Assessment Noted Time A fall risk assessment has been completed for the pat ient 05/23/2021 11:29 AM CDT PHQ-2 Depression Total Score: 0 05/03/2019 11:50 AM CDT documented as of this encounter
== END 2021-06-11 20:40 | disposition home or self-care (01) ==
LOC: EDUNIT# 18:24 → ER 18:26
DX: U07.1 COVID-19 (principal); N17.9 Acute kidney failure, unspecified; E03.9 Hypothyroidism, unspecified; Z79.01 Long term (current) use of anticoagulants; Z79.890 Hormone replacement therapy; Z79.899 Other long term (current) drug therapy
CPT/HCPCS: 36415; 71045; 80048; 85025

== ENCOUNTER 2021-07-01 13:50 | Outpatient (RCR) | payer MEDICARE, OTHER ==
[2021-04-03 09:37] LABS: BASOPHILS % (AUTO) 0 % (0-10); MEAN CORPUSCULAR VOLUME 99 fL (80-99); MEAN PLATELET VOLUME 12.5 fL (9.0-12.2)
[2021-04-03 09:39] LABS: EOSINOPHILS # (AUTO) 0.1 10^3/uL (0.0-0.3); EOSINOPHILS % (AUTO) 4 % (0-10); HEMATOCRIT 44 % (35-52); LYMPHOCYTES # (AUTO) 0.7 10^3/uL (1.0-4.0); LYMPHOCYTES % (AUTO) 24 % (12-44); MEAN CORPUSCULAR HEMOGLOBIN 34 pg (25-34); MEAN CORPUSCULAR HGB CONC 34 g/dL (32-36); MONOCYTES # (AUTO) 0.4 10^3/uL (0.0-1.0); MONOCYTES % (AUTO) 14 % (0-12); NEUTROPHILS # (AUTO) 1.7 10^3/uL (1.8-7.8); NEUTROPHILS % (AUTO) 58 % (42-75); PLATELET COUNT 94 10^3/uL (130-400)
[2021-04-03 09:58] LABS: ALANINE AMINOTRANSFERASE 33 U/L (0-55); ALBUMIN 4.4 GM/DL (3.2-4.5); ALKALINE PHOSPHATASE 70 U/L (40-136); BILIRUBIN,TOTAL 1.2 MG/DL (0.1-1.0); BUN/CREATININE RATIO 21; CALCIUM 9.8 MG/DL (8.5-10.1); CARBON DIOXIDE 25 MMOL/L (21-32); CHLORIDE 108 MMOL/L (98-107); CREATININE SERUM 0.89 MG/DL (0.60-1.30); GFR ESTIMATED > 60; GLUCOSE 72 MG/DL (70-105); POTASSIUM 3.4 MMOL/L (3.6-5.0); SODIUM 143 MMOL/L (135-145); TOTAL PROTEIN 7.6 GM/DL (6.4-8.2)
[2021-04-08 14:31] LABS: BASOPHILS % (AUTO) 0 % (0-10)
[2021-04-08 14:33] LABS: EOSINOPHILS # (AUTO) 0.1 10^3/uL (0.0-0.3); EOSINOPHILS % (AUTO) 2 % (0-10); HEMATOCRIT 38 % (35-52); HEMOGLOBIN 13.1 g/dL (11.5-16.0); LYMPHOCYTES # (AUTO) 0.9 10^3/uL (1.0-4.0); LYMPHOCYTES % (AUTO) 32 % (12-44); MEAN CORPUSCULAR HEMOGLOBIN 33 pg (25-34); MEAN CORPUSCULAR HGB CONC 35 g/dL (32-36); MEAN CORPUSCULAR VOLUME 96 fL (80-99); MEAN PLATELET VOLUME 12.8 fL (9.0-12.2); MONOCYTES # (AUTO) 0.3 10^3/uL (0.0-1.0); MONOCYTES % (AUTO) 12 % (0-12); NEUTROPHILS # (AUTO) 1.5 10^3/uL (1.8-7.8); NEUTROPHILS % (AUTO) 53 % (42-75); PLATELET COUNT 103 10^3/uL (130-400); WHITE BLOOD COUNT 2.8 10^3/uL (4.3-11.0)
[2021-04-08 14:35] LABS: ALANINE AMINOTRANSFERASE 25 U/L (0-55); ALBUMIN 3.8 GM/DL (3.2-4.5); ALKALINE PHOSPHATASE 62 U/L (40-136); BILIRUBIN,TOTAL 0.8 MG/DL (0.1-1.0); BUN/CREATININE RATIO 19; CALCIUM 9.1 MG/DL (8.5-10.1); CARBON DIOXIDE 28 MMOL/L (21-32); CHLORIDE 108 MMOL/L (98-107); CREATININE SERUM 0.81 MG/DL (0.60-1.30); GFR ESTIMATED > 60; GLUCOSE 116 MG/DL (70-105); SODIUM 142 MMOL/L (135-145); TOTAL PROTEIN 6.6 GM/DL (6.4-8.2)
[2021-04-15 14:20] LABS: BASOPHILS % (AUTO) 0 % (0-10); EOSINOPHILS # (AUTO) 0.1 10^3/uL (0.0-0.3); EOSINOPHILS % (AUTO) 2 % (0-10); HEMATOCRIT 41 % (35-52); LYMPHOCYTES # (AUTO) 0.7 10^3/uL (1.0-4.0); LYMPHOCYTES % (AUTO) 15 % (12-44); MEAN CORPUSCULAR HEMOGLOBIN 33 pg (25-34); MEAN CORPUSCULAR HGB CONC 34 g/dL (32-36); MEAN CORPUSCULAR VOLUME 97 fL (80-99); MEAN PLATELET VOLUME 12.8 fL (9.0-12.2); MONOCYTES # (AUTO) 0.6 10^3/uL (0.0-1.0); MONOCYTES % (AUTO) 13 % (0-12); NEUTROPHILS % (AUTO) 70 % (42-75); PLATELET COUNT 79 10^3/uL (130-400); WHITE BLOOD COUNT 4.3 10^3/uL (4.3-11.0)
[2021-04-15 14:43] LABS: BUN/CREATININE RATIO 16; CALCIUM 9.2 MG/DL (8.5-10.1); CARBON DIOXIDE 30 MMOL/L (21-32); CHLORIDE 103 MMOL/L (98-107); CREATININE SERUM 0.86 MG/DL (0.60-1.30); GFR ESTIMATED > 60; GLUCOSE 82 MG/DL (70-105); POTASSIUM 3.8 MMOL/L (3.6-5.0); SODIUM 139 MMOL/L (135-145)
[2021-04-18 14:09] LABS: BASOPHILS % (AUTO) 0 % (0-10); EOSINOPHILS # (AUTO) 0.1 10^3/uL (0.0-0.3); EOSINOPHILS % (AUTO) 1 % (0-10); HEMATOCRIT 41 % (35-52); HEMOGLOBIN 13.9 g/dL (11.5-16.0); LYMPHOCYTES # (AUTO) 0.9 X 10^3 (1.0-4.0); LYMPHOCYTES % (AUTO) 16 % (12-44); MEAN CORPUSCULAR HEMOGLOBIN 33 pg (25-34); MEAN CORPUSCULAR HGB CONC 34 g/dL (32-36); MEAN CORPUSCULAR VOLUME 97 fL (80-99); MEAN PLATELET VOLUME 13.2 fL (9.0-12.2); MONOCYTES # (AUTO) 0.7 X 10^3 (0.0-1.0); MONOCYTES % (AUTO) 12 % (0-12); NEUTROPHILS # (AUTO) 3.9 X 10^3 (1.8-7.8); NEUTROPHILS % (AUTO) 70 % (42-75); WHITE BLOOD COUNT 5.6 10^3/uL (4.3-11.0)
[2021-04-18 14:11] LABS: PLATELET COUNT 63 10^3/uL (130-400)
[2021-04-22 14:34] LABS: BASOPHILS % (AUTO) 0 % (0-10); HEMATOCRIT 39 % (35-52)
[2021-04-22 14:35] LABS: EOSINOPHILS # (AUTO) 0.1 10^3/uL (0.0-0.3); EOSINOPHILS % (AUTO) 1 % (0-10); HEMOGLOBIN 13.2 g/dL (11.5-16.0); LYMPHOCYTES # (AUTO) 0.5 10^3/uL (1.0-4.0); LYMPHOCYTES % (AUTO) 13 % (12-44); MEAN CORPUSCULAR HEMOGLOBIN 33 pg (25-34); MEAN CORPUSCULAR HGB CONC 34 g/dL (32-36); MEAN CORPUSCULAR VOLUME 97 fL (80-99); MEAN PLATELET VOLUME 12.9 fL (9.0-12.2); MONOCYTES # (AUTO) 0.4 10^3/uL (0.0-1.0); MONOCYTES % (AUTO) 10 % (0-12); NEUTROPHILS % (AUTO) 76 % (42-75); PLATELET COUNT 76 10^3/uL (130-400)
[2021-04-22 14:53] LABS: BUN/CREATININE RATIO 22; CALCIUM 8.8 MG/DL (8.5-10.1); CARBON DIOXIDE 31 MMOL/L (21-32); CHLORIDE 105 MMOL/L (98-107); CREATININE SERUM 0.82 MG/DL (0.60-1.30); GFR ESTIMATED > 60; GLUCOSE 98 MG/DL (70-105); POTASSIUM 3.9 MMOL/L (3.6-5.0); SODIUM 142 MMOL/L (135-145)
[2021-04-29 13:50] LABS: BASOPHILS % (AUTO) 1 % (0-10); EOSINOPHILS # (AUTO) 0.1 10^3/uL (0.0-0.3); EOSINOPHILS % (AUTO) 2 % (0-10); HEMATOCRIT 41 % (35-52); HEMOGLOBIN 13.9 g/dL (11.5-16.0); LYMPHOCYTES # (AUTO) 0.7 10^3/uL (1.0-4.0); LYMPHOCYTES % (AUTO) 16 % (12-44); MEAN CORPUSCULAR HEMOGLOBIN 33 pg (25-34); MEAN CORPUSCULAR HGB CONC 34 g/dL (32-36); MEAN CORPUSCULAR VOLUME 97 fL (80-99); MONOCYTES # (AUTO) 0.5 10^3/uL (0.0-1.0); MONOCYTES % (AUTO) 11 % (0-12); NEUTROPHILS # (AUTO) 2.8 10^3/uL (1.8-7.8); NEUTROPHILS % (AUTO) 70 % (42-75); PLATELET COUNT 130 10^3/uL (130-400)
[2021-04-29 14:09] LABS: ALANINE AMINOTRANSFERASE 36 U/L (0-55); ALBUMIN 3.7 GM/DL (3.2-4.5); ALKALINE PHOSPHATASE 69 U/L (40-136); BILIRUBIN,TOTAL 0.7 MG/DL (0.1-1.0); BUN/CREATININE RATIO 17; CARBON DIOXIDE 29 MMOL/L (21-32); CHLORIDE 104 MMOL/L (98-107); CREATININE SERUM 0.82 MG/DL (0.60-1.30); GFR ESTIMATED > 60; GLUCOSE 106 MG/DL (70-105); SODIUM 139 MMOL/L (135-145); TOTAL PROTEIN 5.9 GM/DL (6.4-8.2)
[2021-05-07 15:02] LABS: BASOPHILS % (AUTO) 0 % (0-10); EOSINOPHILS # (AUTO) 0.1 10^3/uL (0.0-0.3); EOSINOPHILS % (AUTO) 3 % (0-10); HEMATOCRIT 45 % (35-52); HEMOGLOBIN 15.3 g/dL (11.5-16.0); LYMPHOCYTES # (AUTO) 0.8 10^3/uL (1.0-4.0); LYMPHOCYTES % (AUTO) 22 % (12-44); MEAN CORPUSCULAR HEMOGLOBIN 32 pg (25-34); MEAN CORPUSCULAR HGB CONC 34 g/dL (32-36); MEAN CORPUSCULAR VOLUME 96 fL (80-99); MEAN PLATELET VOLUME 12.9 fL (9.0-12.2); MONOCYTES # (AUTO) 0.5 10^3/uL (0.0-1.0); MONOCYTES % (AUTO) 13 % (0-12); NEUTROPHILS # (AUTO) 2.2 10^3/uL (1.8-7.8); NEUTROPHILS % (AUTO) 61 % (42-75); PLATELET COUNT 78 10^3/uL (130-400); WHITE BLOOD COUNT 3.6 10^3/uL (4.3-11.0)
[2021-05-07 15:20] LABS: BUN/CREATININE RATIO 23; CALCIUM 9.4 MG/DL (8.5-10.1); CARBON DIOXIDE 29 MMOL/L (21-32); CHLORIDE 101 MMOL/L (98-107); CREATININE SERUM 0.82 MG/DL (0.60-1.30); GFR ESTIMATED > 60; GLUCOSE 120 MG/DL (70-105); POTASSIUM 3.4 MMOL/L (3.6-5.0); SODIUM 139 MMOL/L (135-145)
[2021-05-10 14:08] LABS: BASOPHILS % (AUTO) 0 % (0-10); EOSINOPHILS % (AUTO) 0 % (0-10); MEAN CORPUSCULAR VOLUME 96 fL (80-99); MONOCYTES # (AUTO) 0.4 10^3/uL (0.0-1.0)
[2021-05-10 14:09] LABS: HEMATOCRIT 41 % (35-52); HEMOGLOBIN 13.8 g/dL (11.5-16.0); LYMPHOCYTES # (AUTO) 0.5 10^3/uL (1.0-4.0); LYMPHOCYTES % (AUTO) 6 % (12-44); MEAN CORPUSCULAR HEMOGLOBIN 33 pg (25-34); MEAN CORPUSCULAR HGB CONC 34 g/dL (32-36); MEAN PLATELET VOLUME 13.4 fL (9.0-12.2); MONOCYTES % (AUTO) 5 % (0-12); NEUTROPHILS # (AUTO) 7.6 10^3/uL (1.8-7.8); NEUTROPHILS % (AUTO) 88 % (42-75); PLATELET COUNT 64 10^3/uL (130-400); WHITE BLOOD COUNT 8.6 10^3/uL (4.3-11.0)
[2021-05-13 14:09] LABS: BASOPHILS % (AUTO) 0 % (0-10); MEAN CORPUSCULAR HEMOGLOBIN 33 pg (25-34); MEAN PLATELET VOLUME 12.8 fL (9.0-12.2); MONOCYTES # (AUTO) 0.6 10^3/uL (0.0-1.0); MONOCYTES % (AUTO) 12 % (0-12)
[2021-05-13 14:11] LABS: EOSINOPHILS % (AUTO) 1 % (0-10); HEMATOCRIT 42 % (35-52); HEMOGLOBIN 13.9 g/dL (11.5-16.0); LYMPHOCYTES # (AUTO) 0.5 10^3/uL (1.0-4.0); LYMPHOCYTES % (AUTO) 10 % (12-44); MEAN CORPUSCULAR HGB CONC 34 g/dL (32-36); MEAN CORPUSCULAR VOLUME 97 fL (80-99); NEUTROPHILS # (AUTO) 3.9 10^3/uL (1.8-7.8); NEUTROPHILS % (AUTO) 77 % (42-75); PLATELET COUNT 78 10^3/uL (130-400); WHITE BLOOD COUNT 5.1 10^3/uL (4.3-11.0)
[2021-05-13 14:33] LABS: CALCIUM 8.6 MG/DL (8.5-10.1); CREATININE SERUM 0.97 MG/DL (0.60-1.30); POTASSIUM 3.7 MMOL/L (3.6-5.0)
[2021-05-20 10:06] LABS: EOSINOPHILS # (AUTO) 0.1 10^3/uL (0.0-0.3); HEMOGLOBIN 13.9 g/dL (11.5-16.0)
[2021-05-20 10:08] LABS: BASOPHILS % (AUTO) 0 % (0-10); EOSINOPHILS % (AUTO) 2 % (0-10); HEMATOCRIT 41 % (35-52); LYMPHOCYTES # (AUTO) 0.6 10^3/uL (1.0-4.0); LYMPHOCYTES % (AUTO) 12 % (12-44); MEAN CORPUSCULAR HEMOGLOBIN 32 pg (25-34); MEAN CORPUSCULAR HGB CONC 34 g/dL (32-36); MEAN CORPUSCULAR VOLUME 96 fL (80-99); MONOCYTES # (AUTO) 0.5 10^3/uL (0.0-1.0); MONOCYTES % (AUTO) 11 % (0-12); NEUTROPHILS # (AUTO) 3.6 10^3/uL (1.8-7.8); NEUTROPHILS % (AUTO) 75 % (42-75); PLATELET COUNT 91 10^3/uL (130-400); WHITE BLOOD COUNT 4.9 10^3/uL (4.3-11.0)
[2021-05-20 10:28] LABS: ALBUMIN 3.6 GM/DL (3.2-4.5); CALCIUM 8.6 MG/DL (8.5-10.1); CREATININE SERUM 0.94 MG/DL (0.60-1.30); POTASSIUM 3.4 MMOL/L (3.6-5.0); TOTAL PROTEIN 5.7 GM/DL (6.4-8.2)
[2021-05-22 15:37] LABS: IMMUNOFIX PATH REPORT NUMBER Complete (Complete)
[2021-05-27 14:49] LABS: BASOPHILS % (AUTO) 0 % (0-10); MEAN PLATELET VOLUME 12.7 fL (9.0-12.2)
[2021-05-27 14:51] LABS: EOSINOPHILS # (AUTO) 0.1 10^3/uL (0.0-0.3); EOSINOPHILS % (AUTO) 2 % (0-10); HEMATOCRIT 38 % (35-52); LYMPHOCYTES # (AUTO) 0.8 10^3/uL (1.0-4.0); LYMPHOCYTES % (AUTO) 21 % (12-44); MEAN CORPUSCULAR HEMOGLOBIN 33 pg (25-34); MEAN CORPUSCULAR HGB CONC 34 g/dL (32-36); MEAN CORPUSCULAR VOLUME 95 fL (80-99); MONOCYTES # (AUTO) 0.7 10^3/uL (0.0-1.0); MONOCYTES % (AUTO) 16 % (0-12); NEUTROPHILS # (AUTO) 2.4 10^3/uL (1.8-7.8); NEUTROPHILS % (AUTO) 60 % (42-75); PLATELET COUNT 50 10^3/uL (130-400)
[2021-05-27 15:04] LABS: CALCIUM 8.5 MG/DL (8.5-10.1); CREATININE SERUM 0.83 MG/DL (0.60-1.30); POTASSIUM 3.9 MMOL/L (3.6-5.0)
[2021-05-30 13:59] LABS: EOSINOPHILS % (AUTO) 1 % (0-10); HEMOGLOBIN 14.4 g/dL (11.5-16.0)
[2021-05-30 14:01] LABS: BASOPHILS % (AUTO) 0 % (0-10); HEMATOCRIT 44 % (35-52); LYMPHOCYTES # (AUTO) 1.2 10^3/uL (1.0-4.0); LYMPHOCYTES % (AUTO) 19 % (12-44); MEAN CORPUSCULAR HEMOGLOBIN 32 pg (25-34); MEAN CORPUSCULAR HGB CONC 33 g/dL (32-36); MEAN CORPUSCULAR VOLUME 97 fL (80-99); MONOCYTES # (AUTO) 0.9 10^3/uL (0.0-1.0); MONOCYTES % (AUTO) 13 % (0-12); NEUTROPHILS # (AUTO) 4.3 10^3/uL (1.8-7.8); NEUTROPHILS % (AUTO) 67 % (42-75); PLATELET COUNT 40 10^3/uL (130-400); WHITE BLOOD COUNT 6.3 10^3/uL (4.3-11.0)
[2021-06-03 14:31] LABS: BASOPHILS % (AUTO) 0 % (0-10); HEMATOCRIT 42 % (35-52)
[2021-06-03 14:33] LABS: EOSINOPHILS # (AUTO) 0.2 10^3/uL (0.0-0.3); EOSINOPHILS % (AUTO) 3 % (0-10); HEMOGLOBIN 14.1 g/dL (11.5-16.0); LYMPHOCYTES % (AUTO) 17 % (12-44); MEAN CORPUSCULAR HEMOGLOBIN 32 pg (25-34); MEAN CORPUSCULAR HGB CONC 34 g/dL (32-36); MEAN CORPUSCULAR VOLUME 94 fL (80-99); MONOCYTES # (AUTO) 0.8 10^3/uL (0.0-1.0); MONOCYTES % (AUTO) 13 % (0-12); NEUTROPHILS # (AUTO) 4.1 10^3/uL (1.8-7.8); NEUTROPHILS % (AUTO) 67 % (42-75); WHITE BLOOD COUNT 6.1 10^3/uL (4.3-11.0)
[2021-06-03 14:39] LABS: PLATELET COUNT 68 10^3/uL (130-400)
[2021-06-03 14:48] LABS: CREATININE SERUM 1.2 MG/DL (0.60-1.30)
[2021-06-24 09:01] LABS: BASOPHILS % (AUTO) 1 % (0-10); HEMATOCRIT 42 % (35-52); HEMOGLOBIN 14.1 g/dL (11.5-16.0); MEAN CORPUSCULAR HEMOGLOBIN 32 pg (25-34); MEAN CORPUSCULAR HGB CONC 34 g/dL (32-36); MEAN CORPUSCULAR VOLUME 94 fL (80-99)
[2021-06-24 09:03] LABS: EOSINOPHILS # (AUTO) 0.1 10^3/uL (0.0-0.3); EOSINOPHILS % (AUTO) 2 % (0-10); LYMPHOCYTES # (AUTO) 1.2 10^3/uL (1.0-4.0); LYMPHOCYTES % (AUTO) 28 % (12-44); MEAN PLATELET VOLUME 11.5 fL (9.0-12.2); MONOCYTES # (AUTO) 0.6 10^3/uL (0.0-1.0); MONOCYTES % (AUTO) 14 % (0-12); NEUTROPHILS # (AUTO) 2.4 10^3/uL (1.8-7.8); NEUTROPHILS % (AUTO) 56 % (42-75); PLATELET COUNT 113 10^3/uL (130-400); WHITE BLOOD COUNT 4.3 10^3/uL (4.3-11.0)
[2021-06-24 09:23] LABS: ALBUMIN 4.2 GM/DL (3.2-4.5); BILIRUBIN,TOTAL 1.2 MG/DL (0.1-1.0); CALCIUM 9.3 MG/DL (8.5-10.1); CREATININE SERUM 1.18 MG/DL (0.60-1.30); POTASSIUM 3.4 MMOL/L (3.6-5.0); TOTAL PROTEIN 6.7 GM/DL (6.4-8.2)
[~2021-07-01] VITALS: Ht 171.4 cm; Wt 81.2 kg
[~2021-07-01 13:50] MED LIST changes: +ACETAMINOPHEN 325 MG TAB (TYLENOL) CANCER CTR ONE; +ACETAMINOPHEN 325 MG TAB (TYLENOL) CANCER CTR PO SCH; +BORTEZOMIB 3.5 MG VELCADE IV SCH; +DEXAMETHASONE IV SCH; +MONTELUKAST 10 MG (SINGULAIR) TAB PO SCH; +NS IV 1000 ML (CANCER CTR) IV SCH; +ONDANSETRON 4 MG (ZOFRAN) ORAL DISSOLVE TAB PO ONE; +ONDANSETRON IV SCH; +ZOLEDRONIC ACID (CANCER CTR) 3.5 MG in NS (IVPB) CANCER CENTER 100 ML IV SCH; +[UNRECOGNIZED DRUG - OTHER] IV SCH; +[UNRECOGNIZED DRUG - OTHER] SQ SCH; +diphenhydrAMINE 25 MG TAB (BENADRYL) CANCER CENTER PO ONE; +diphenhydrAMINE 50 MG/ML INJ (CANCER CENTER) IV PRN
[2021-07-01 13:59] LABS: BASOPHILS % (AUTO) 0 % (0-10); EOSINOPHILS # (AUTO) 0.1 10^3/uL (0.0-0.3); EOSINOPHILS % (AUTO) 1 % (0-10); MEAN CORPUSCULAR HGB CONC 33 g/dL (32-36)
[2021-07-01 14:01] LABS: HEMATOCRIT 41 % (35-52); HEMOGLOBIN 13.5 g/dL (11.5-16.0); LYMPHOCYTES # (AUTO) 1.7 10^3/uL (1.0-4.0); LYMPHOCYTES % (AUTO) 31 % (12-44); MEAN CORPUSCULAR HEMOGLOBIN 32 pg (25-34); MEAN CORPUSCULAR VOLUME 95 fL (80-99); MEAN PLATELET VOLUME 11.6 fL (9.0-12.2); MONOCYTES # (AUTO) 0.7 10^3/uL (0.0-1.0); MONOCYTES % (AUTO) 12 % (0-12); NEUTROPHILS # (AUTO) 3.1 10^3/uL (1.8-7.8); NEUTROPHILS % (AUTO) 56 % (42-75); PLATELET COUNT 100 10^3/uL (130-400); WHITE BLOOD COUNT 5.5 10^3/uL (4.3-11.0)
[2021-07-01 14:24] LABS: CALCIUM 9.9 MG/DL (8.5-10.1); CREATININE SERUM 0.98 MG/DL (0.60-1.30); POTASSIUM 3.9 MMOL/L (3.6-5.0)
== END 2021-07-02 | disposition home or self-care (01) ==
LOC: ONC 13:50
PROVIDERS: ATTEND Internal Medicine Hematology & Oncology
DX: Z51.11 Encounter for antineoplastic chemotherapy (principal); Z45.2 Encounter for adjustment and management of vascular access device; C90.00 Multiple myeloma not having achieved remission; M84.58XA Pathological fracture in neoplastic disease, other specified site, initial encounter for fracture; I63.549 Cerebral infarction due to unspecified occlusion or stenosis of unspecified cerebellar artery; Z86.711 Personal history of pulmonary embolism; Z79.01 Long term (current) use of anticoagulants; Z79.891 Long term (current) use of opiate analgesic; Z79.899 Other long term (current) drug therapy; Z92.3 Personal history of irradiation; Z92.21 Personal history of antineoplastic chemotherapy; Z86.16 Personal history of COVID-19
CPT/HCPCS: 80053; 82232; 82784 ×3; 83883; 84165; 85025; G0463; 36415; 80048; 84155; 86334; 96365; 96375; 96401; 99213

== ENCOUNTER → 2021-09-05 | Outpatient (CLI) | payer MEDICARE, OTHER ==
[~2021-09-05] MED LIST changes: -ACETAMINOPHEN 325 MG TAB (TYLENOL) CANCER CTR ONE; -ACETAMINOPHEN 325 MG TAB (TYLENOL) CANCER CTR PO SCH; -BORTEZOMIB 3.5 MG VELCADE IV SCH; -DEXAMETHASONE IV SCH; -MONTELUKAST 10 MG (SINGULAIR) TAB PO SCH; -NS IV 1000 ML (CANCER CTR) IV SCH; -ONDANSETRON 4 MG (ZOFRAN) ORAL DISSOLVE TAB PO ONE; -ONDANSETRON IV SCH; -ZOLEDRONIC ACID (CANCER CTR) 3.5 MG in NS (IVPB) CANCER CENTER 100 ML IV SCH; -[UNRECOGNIZED DRUG - OTHER] IV SCH; -[UNRECOGNIZED DRUG - OTHER] SQ SCH; -diphenhydrAMINE 25 MG TAB (BENADRYL) CANCER CENTER PO ONE; -diphenhydrAMINE 50 MG/ML INJ (CANCER CENTER) IV PRN
--- NOTE | 2021-09-05 09:16 | Diagnostic Imaging Report ---
INDICATION: Cough and fever. TIME OF EXAM: 8:58 AM Correlation is made with prior chest from 08/13/20. The heart size is normal. There is a focal opacity in the right upper lobe, likely area of patchy infiltrate. Some mild central congestion present as well. Lungs are hyperinflated consistent with COPD. No effusion is identified. There is no pneumothorax. IMPRESSION: COPD and mild central congestion with patchy infiltrate in the right upper lobe. Dictated by: Dictated on workstation # [id number]
== END ==
LOC: RAD FS 08:47
PROVIDERS: ATTEND Nurse Practitioner Family
DX: J44.9 Chronic obstructive pulmonary disease, unspecified (principal); R50.9 Fever, unspecified
CPT/HCPCS: 71046

== ENCOUNTER → 2021-10-07 | Outpatient (RCR) | payer MEDICARE, OTHER ==
[2021-07-09 14:08] LABS: BASOPHILS % (AUTO) 0 % (0-10); EOSINOPHILS # (AUTO) 0.1 10^3/uL (0.0-0.3); EOSINOPHILS % (AUTO) 2 % (0-10); MEAN PLATELET VOLUME 12.4 fL (9.0-12.2)
[2021-07-09 14:10] LABS: HEMATOCRIT 40 % (35-52); HEMOGLOBIN 13.2 g/dL (11.5-16.0); LYMPHOCYTES # (AUTO) 1.8 10^3/uL (1.0-4.0); LYMPHOCYTES % (AUTO) 30 % (12-44); MEAN CORPUSCULAR HEMOGLOBIN 32 pg (25-34); MEAN CORPUSCULAR HGB CONC 33 g/dL (32-36); MEAN CORPUSCULAR VOLUME 95 fL (80-99); MONOCYTES # (AUTO) 0.7 10^3/uL (0.0-1.0); MONOCYTES % (AUTO) 12 % (0-12); NEUTROPHILS # (AUTO) 3.2 10^3/uL (1.8-7.8); NEUTROPHILS % (AUTO) 55 % (42-75); PLATELET COUNT 90 10^3/uL (130-400); WHITE BLOOD COUNT 5.8 10^3/uL (4.3-11.0)
[2021-07-09 14:23] LABS: CALCIUM 9.5 MG/DL (8.5-10.1); CREATININE SERUM 1.09 MG/DL (0.60-1.30); POTASSIUM 3.8 MMOL/L (3.6-5.0)
[2021-07-15 13:42] LABS: MEAN CORPUSCULAR HEMOGLOBIN 32 pg (25-34); MEAN CORPUSCULAR HGB CONC 33 g/dL (32-36)
[2021-07-15 13:44] LABS: BASOPHILS % (AUTO) 0 % (0-10); EOSINOPHILS # (AUTO) 0.1 10^3/uL (0.0-0.3); EOSINOPHILS % (AUTO) 1 % (0-10); HEMATOCRIT 44 % (35-52); HEMOGLOBIN 14.5 g/dL (11.5-16.0); LYMPHOCYTES # (AUTO) 1.3 10^3/uL (1.0-4.0); LYMPHOCYTES % (AUTO) 23 % (12-44); MEAN CORPUSCULAR VOLUME 97 fL (80-99); MEAN PLATELET VOLUME 12.5 fL (9.0-12.2); MONOCYTES # (AUTO) 0.4 10^3/uL (0.0-1.0); MONOCYTES % (AUTO) 7 % (0-12); NEUTROPHILS # (AUTO) 3.9 10^3/uL (1.8-7.8); NEUTROPHILS % (AUTO) 68 % (42-75); PLATELET COUNT 102 10^3/uL (130-400); WHITE BLOOD COUNT 5.7 10^3/uL (4.3-11.0)
[2021-07-15 13:58] LABS: ALBUMIN 4.3 GM/DL (3.2-4.5); BILIRUBIN,TOTAL 1.2 MG/DL (0.1-1.0); CALCIUM 9.5 MG/DL (8.5-10.1); CREATININE SERUM 1.09 MG/DL (0.60-1.30); POTASSIUM 3.7 MMOL/L (3.6-5.0); TOTAL PROTEIN 6.4 GM/DL (6.4-8.2)
[2021-07-22 14:05] LABS: EOSINOPHILS # (AUTO) 0.1 10^3/uL (0.0-0.3); EOSINOPHILS % (AUTO) 2 % (0-10); HEMOGLOBIN 14.3 g/dL (11.5-16.0)
[2021-07-22 14:07] LABS: BASOPHILS % (AUTO) 0 % (0-10); HEMATOCRIT 43 % (35-52); LYMPHOCYTES # (AUTO) 1.5 10^3/uL (1.0-4.0); LYMPHOCYTES % (AUTO) 31 % (12-44); MEAN CORPUSCULAR HEMOGLOBIN 32 pg (25-34); MEAN CORPUSCULAR HGB CONC 34 g/dL (32-36); MEAN CORPUSCULAR VOLUME 95 fL (80-99); MEAN PLATELET VOLUME 12.7 fL (9.0-12.2); MONOCYTES # (AUTO) 0.5 10^3/uL (0.0-1.0); MONOCYTES % (AUTO) 10 % (0-12); NEUTROPHILS # (AUTO) 2.8 10^3/uL (1.8-7.8); NEUTROPHILS % (AUTO) 57 % (42-75); PLATELET COUNT 94 10^3/uL (130-400)
[2021-07-22 14:27] LABS: CALCIUM 9.2 MG/DL (8.5-10.1); CREATININE SERUM 1.04 MG/DL (0.60-1.30); POTASSIUM 3.9 MMOL/L (3.6-5.0)
[2021-07-29 14:11] LABS: BASOPHILS % (AUTO) 0 % (0-10); EOSINOPHILS # (AUTO) 0.1 10^3/uL (0.0-0.3); EOSINOPHILS % (AUTO) 2 % (0-10); HEMATOCRIT 41 % (35-52); HEMOGLOBIN 13.5 g/dL (11.5-16.0); LYMPHOCYTES # (AUTO) 1.6 10^3/uL (1.0-4.0); LYMPHOCYTES % (AUTO) 29 % (12-44); MEAN CORPUSCULAR HEMOGLOBIN 32 pg (25-34); MEAN CORPUSCULAR HGB CONC 33 g/dL (32-36); MEAN CORPUSCULAR VOLUME 95 fL (80-99); MEAN PLATELET VOLUME 12.5 fL (9.0-12.2); MONOCYTES # (AUTO) 0.6 10^3/uL (0.0-1.0); MONOCYTES % (AUTO) 11 % (0-12); NEUTROPHILS # (AUTO) 3.1 10^3/uL (1.8-7.8); NEUTROPHILS % (AUTO) 57 % (42-75); PLATELET COUNT 86 10^3/uL (130-400); WHITE BLOOD COUNT 5.3 10^3/uL (4.3-11.0)
[2021-07-29 14:26] LABS: CALCIUM 9.3 MG/DL (8.5-10.1); CREATININE SERUM 1.18 MG/DL (0.60-1.30); POTASSIUM 3.6 MMOL/L (3.6-5.0)
[2021-08-05 09:41] LABS: HEMOGLOBIN 14.3 g/dL (11.5-16.0); MEAN CORPUSCULAR VOLUME 94 fL (80-99); NEUTROPHILS % (AUTO) 66 % (42-75)
[2021-08-05 09:43] LABS: BASOPHILS % (AUTO) 0 % (0-10); EOSINOPHILS # (AUTO) 0.1 10^3/uL (0.0-0.3); EOSINOPHILS % (AUTO) 2 % (0-10); HEMATOCRIT 42 % (35-52); LYMPHOCYTES # (AUTO) 1.2 10^3/uL (1.0-4.0); LYMPHOCYTES % (AUTO) 22 % (12-44); MEAN CORPUSCULAR HEMOGLOBIN 32 pg (25-34); MEAN CORPUSCULAR HGB CONC 34 g/dL (32-36); MEAN PLATELET VOLUME 12.3 fL (9.0-12.2); MONOCYTES # (AUTO) 0.6 10^3/uL (0.0-1.0); MONOCYTES % (AUTO) 10 % (0-12); NEUTROPHILS # (AUTO) 3.6 10^3/uL (1.8-7.8); PLATELET COUNT 84 10^3/uL (130-400); WHITE BLOOD COUNT 5.5 10^3/uL (4.3-11.0)
[2021-08-05 10:02] LABS: ALBUMIN 3.9 GM/DL (3.2-4.5); BILIRUBIN,TOTAL 1.4 MG/DL (0.1-1.0); CALCIUM 9.2 MG/DL (8.5-10.1); CREATININE SERUM 1.1 MG/DL (0.60-1.30); POTASSIUM 3.8 MMOL/L (3.6-5.0); TOTAL PROTEIN 5.8 GM/DL (6.4-8.2)
[2021-08-12 14:24] LABS: BASOPHILS % (AUTO) 0 % (0-10); EOSINOPHILS # (AUTO) 0.1 10^3/uL (0.0-0.3); EOSINOPHILS % (AUTO) 2 % (0-10); HEMATOCRIT 39 % (35-52); LYMPHOCYTES # (AUTO) 1.1 10^3/uL (1.0-4.0); LYMPHOCYTES % (AUTO) 19 % (12-44); MEAN CORPUSCULAR HEMOGLOBIN 32 pg (25-34); MEAN CORPUSCULAR HGB CONC 33 g/dL (32-36); MEAN CORPUSCULAR VOLUME 95 fL (80-99); MEAN PLATELET VOLUME 12.9 fL (9.0-12.2); MONOCYTES # (AUTO) 0.7 10^3/uL (0.0-1.0); MONOCYTES % (AUTO) 11 % (0-12); NEUTROPHILS % (AUTO) 67 % (42-75); PLATELET COUNT 97 10^3/uL (130-400); WHITE BLOOD COUNT 5.9 10^3/uL (4.3-11.0)
[2021-08-12 14:43] LABS: CALCIUM 9.2 MG/DL (8.5-10.1); CREATININE SERUM 1.2 MG/DL (0.60-1.30); POTASSIUM 3.8 MMOL/L (3.6-5.0)
[2021-08-19 14:03] LABS: BASOPHILS % (AUTO) 0 % (0-10)
[2021-08-19 14:05] LABS: EOSINOPHILS # (AUTO) 0.1 10^3/uL (0.0-0.3); EOSINOPHILS % (AUTO) 2 % (0-10); HEMATOCRIT 38 % (35-52); HEMOGLOBIN 12.6 g/dL (11.5-16.0); LYMPHOCYTES # (AUTO) 1.5 10^3/uL (1.0-4.0); LYMPHOCYTES % (AUTO) 23 % (12-44); MEAN CORPUSCULAR HEMOGLOBIN 31 pg (25-34); MEAN CORPUSCULAR HGB CONC 33 g/dL (32-36); MEAN CORPUSCULAR VOLUME 95 fL (80-99); MEAN PLATELET VOLUME 12.7 fL (9.0-12.2); MONOCYTES # (AUTO) 0.5 10^3/uL (0.0-1.0); MONOCYTES % (AUTO) 9 % (0-12); NEUTROPHILS # (AUTO) 4.2 10^3/uL (1.8-7.8); NEUTROPHILS % (AUTO) 66 % (42-75); PLATELET COUNT 100 10^3/uL (130-400); WHITE BLOOD COUNT 6.4 10^3/uL (4.3-11.0)
[2021-08-19 14:22] LABS: CALCIUM 9.2 MG/DL (8.5-10.1); CREATININE SERUM 1.53 MG/DL (0.60-1.30); POTASSIUM 3.8 MMOL/L (3.6-5.0)
[2021-08-26 10:19] LABS: BASOPHILS % (AUTO) 0 % (0-10); EOSINOPHILS # (AUTO) 0.1 10^3/uL (0.0-0.3); EOSINOPHILS % (AUTO) 2 % (0-10); HEMATOCRIT 43 % (35-52); HEMOGLOBIN 14.3 g/dL (11.5-16.0); LYMPHOCYTES # (AUTO) 0.9 10^3/uL (1.0-4.0); LYMPHOCYTES % (AUTO) 14 % (12-44); MEAN CORPUSCULAR HEMOGLOBIN 31 pg (25-34); MEAN CORPUSCULAR HGB CONC 33 g/dL (32-36); MEAN CORPUSCULAR VOLUME 95 fL (80-99); MEAN PLATELET VOLUME 12.5 fL (9.0-12.2); MONOCYTES # (AUTO) 0.7 10^3/uL (0.0-1.0); MONOCYTES % (AUTO) 10 % (0-12); NEUTROPHILS # (AUTO) 4.9 10^3/uL (1.8-7.8); NEUTROPHILS % (AUTO) 74 % (42-75); PLATELET COUNT 96 10^3/uL (130-400); WHITE BLOOD COUNT 6.6 10^3/uL (4.3-11.0)
[2021-08-26 10:38] LABS: ALBUMIN 3.9 GM/DL (3.2-4.5); BILIRUBIN,TOTAL 0.9 MG/DL (0.1-1.0); CALCIUM 9.5 MG/DL (8.5-10.1); CREATININE SERUM 1.22 MG/DL (0.60-1.30); POTASSIUM 3.7 MMOL/L (3.6-5.0)
[2021-09-02 14:16] LABS: EOSINOPHILS # (AUTO) 0.1 10^3/uL (0.0-0.3); EOSINOPHILS % (AUTO) 1 % (0-10); MEAN CORPUSCULAR VOLUME 95 fL (80-99)
[2021-09-02 14:18] LABS: BASOPHILS % (AUTO) 0 % (0-10); HEMATOCRIT 40 % (35-52); HEMOGLOBIN 13.2 g/dL (11.5-16.0); LYMPHOCYTES # (AUTO) 1.5 10^3/uL (1.0-4.0); LYMPHOCYTES % (AUTO) 16 % (12-44); MEAN CORPUSCULAR HEMOGLOBIN 32 pg (25-34); MEAN CORPUSCULAR HGB CONC 33 g/dL (32-36); MEAN PLATELET VOLUME 13.4 fL (9.0-12.2); MONOCYTES # (AUTO) 0.8 10^3/uL (0.0-1.0); MONOCYTES % (AUTO) 9 % (0-12); NEUTROPHILS % (AUTO) 74 % (42-75); PLATELET COUNT 87 10^3/uL (130-400); WHITE BLOOD COUNT 9.4 10^3/uL (4.3-11.0)
[2021-09-02 14:39] LABS: CALCIUM 8.6 MG/DL (8.5-10.1); CREATININE SERUM 1.16 MG/DL (0.60-1.30); POTASSIUM 4.4 MMOL/L (3.6-5.0)
[2021-09-16 14:40] LABS: BASOPHILS % (AUTO) 0 % (0-10); EOSINOPHILS # (AUTO) 0.1 10^3/uL (0.0-0.3); EOSINOPHILS % (AUTO) 1 % (0-10); HEMATOCRIT 40 % (35-52); HEMOGLOBIN 13.4 g/dL (11.5-16.0); LYMPHOCYTES % (AUTO) 19 % (12-44); MEAN CORPUSCULAR HEMOGLOBIN 31 pg (25-34); MEAN CORPUSCULAR HGB CONC 34 g/dL (32-36); MEAN CORPUSCULAR VOLUME 93 fL (80-99); MEAN PLATELET VOLUME 11.7 fL (9.0-12.2); MONOCYTES # (AUTO) 0.5 10^3/uL (0.0-1.0); MONOCYTES % (AUTO) 10 % (0-12); NEUTROPHILS # (AUTO) 3.6 10^3/uL (1.8-7.8); NEUTROPHILS % (AUTO) 70 % (42-75); PLATELET COUNT 148 10^3/uL (130-400); WHITE BLOOD COUNT 5.2 10^3/uL (4.3-11.0)
[2021-09-16 15:01] LABS: ALBUMIN 3.6 GM/DL (3.2-4.5); BILIRUBIN,TOTAL 0.6 MG/DL (0.1-1.0); CREATININE SERUM 1.33 MG/DL (0.60-1.30); POTASSIUM 3.8 MMOL/L (3.6-5.0); TOTAL PROTEIN 5.7 GM/DL (6.4-8.2)
[2021-09-23 14:11] LABS: BASOPHILS % (AUTO) 0 % (0-10); EOSINOPHILS # (AUTO) 0.1 10^3/uL (0.0-0.3); EOSINOPHILS % (AUTO) 2 % (0-10); HEMATOCRIT 39 % (35-52); LYMPHOCYTES % (AUTO) 17 % (12-44); MEAN CORPUSCULAR HEMOGLOBIN 32 pg (25-34); MEAN CORPUSCULAR HGB CONC 34 g/dL (32-36); MEAN CORPUSCULAR VOLUME 95 fL (80-99); MEAN PLATELET VOLUME 11.7 fL (9.0-12.2); MONOCYTES # (AUTO) 0.8 10^3/uL (0.0-1.0); MONOCYTES % (AUTO) 14 % (0-12); NEUTROPHILS # (AUTO) 3.8 10^3/uL (1.8-7.8); NEUTROPHILS % (AUTO) 67 % (42-75); PLATELET COUNT 112 10^3/uL (130-400); WHITE BLOOD COUNT 5.7 10^3/uL (4.3-11.0)
[2021-09-23 14:26] LABS: CALCIUM 9.2 MG/DL (8.5-10.1); CREATININE SERUM 1.1 MG/DL (0.60-1.30); POTASSIUM 3.8 MMOL/L (3.6-5.0)
[2021-09-30 14:16] LABS: BASOPHILS % (AUTO) 0 % (0-10); LYMPHOCYTES # (AUTO) 1.3 10^3/uL (1.0-4.0); MEAN CORPUSCULAR VOLUME 93 fL (80-99)
[2021-09-30 14:18] LABS: EOSINOPHILS # (AUTO) 0.2 10^3/uL (0.0-0.3); EOSINOPHILS % (AUTO) 3 % (0-10); HEMATOCRIT 39 % (35-52); HEMOGLOBIN 13.2 g/dL (11.5-16.0); LYMPHOCYTES % (AUTO) 27 % (12-44); MEAN CORPUSCULAR HEMOGLOBIN 32 pg (25-34); MEAN CORPUSCULAR HGB CONC 34 g/dL (32-36); MEAN PLATELET VOLUME 11.5 fL (9.0-12.2); MONOCYTES # (AUTO) 0.6 10^3/uL (0.0-1.0); MONOCYTES % (AUTO) 13 % (0-12); NEUTROPHILS # (AUTO) 2.7 10^3/uL (1.8-7.8); NEUTROPHILS % (AUTO) 57 % (42-75); PLATELET COUNT 94 10^3/uL (130-400); WHITE BLOOD COUNT 4.7 10^3/uL (4.3-11.0)
[2021-09-30 14:48] LABS: CREATININE SERUM 1.32 MG/DL (0.60-1.30)
[~2021-10-07] MED LIST changes: +BORTEZOMIB 3.5 MG VELCADE IV SCH; +MONTELUKAST 10 MG (SINGULAIR) TAB PO SCH; +NS IV 1000 ML (CANCER CTR) IV SCH; +ZOLEDRONIC ACID (CANCER CTR) 3.5 MG in NS (IVPB) CANCER CENTER 100 ML IV SCH; +[UNRECOGNIZED DRUG - OTHER] SQ SCH
[2021-10-07 14:17] LABS: BASOPHILS % (AUTO) 0 % (0-10); HEMATOCRIT 38 % (35-52); HEMOGLOBIN 13.1 g/dL (11.5-16.0); MEAN CORPUSCULAR HGB CONC 34 g/dL (32-36); PLATELET COUNT 96 10^3/uL (130-400)
[2021-10-07 14:19] LABS: EOSINOPHILS # (AUTO) 0.1 10^3/uL (0.0-0.3); EOSINOPHILS % (AUTO) 1 % (0-10); LYMPHOCYTES # (AUTO) 1.3 10^3/uL (1.0-4.0); LYMPHOCYTES % (AUTO) 22 % (12-44); MEAN CORPUSCULAR HEMOGLOBIN 32 pg (25-34); MEAN CORPUSCULAR VOLUME 93 fL (80-99); MEAN PLATELET VOLUME 12.1 fL (9.0-12.2); MONOCYTES # (AUTO) 0.6 10^3/uL (0.0-1.0); MONOCYTES % (AUTO) 10 % (0-12); NEUTROPHILS # (AUTO) 3.8 10^3/uL (1.8-7.8); NEUTROPHILS % (AUTO) 66 % (42-75); WHITE BLOOD COUNT 5.7 10^3/uL (4.3-11.0)
[2021-10-07 14:42] LABS: CREATININE SERUM 1.12 MG/DL (0.60-1.30); POTASSIUM 3.9 MMOL/L (3.6-5.0)
== END | disposition home or self-care (01) ==
LOC: ONC 07-09 13:58
PROVIDERS: ATTEND Internal Medicine Hematology & Oncology
DX: Z51.11 Encounter for antineoplastic chemotherapy (principal); Z45.2 Encounter for adjustment and management of vascular access device; C90.00 Multiple myeloma not having achieved remission; M84.58XA Pathological fracture in neoplastic disease, other specified site, initial encounter for fracture; I63.549 Cerebral infarction due to unspecified occlusion or stenosis of unspecified cerebellar artery; Z86.711 Personal history of pulmonary embolism; Z79.01 Long term (current) use of anticoagulants; Z79.891 Long term (current) use of opiate analgesic; Z79.899 Other long term (current) drug therapy; Z92.3 Personal history of irradiation; Z92.21 Personal history of antineoplastic chemotherapy
CPT/HCPCS: 80048; 80053; 82232; 82784; 83883; 84155; 84165; 85025; 96365; 96372; 96401; 99213

== ENCOUNTER 2021-10-21 13:29 | Outpatient (RCR) | payer MEDICARE, OTHER ==
[2021-10-14 14:16] LABS: BASOPHILS % (AUTO) 0 % (0-10); EOSINOPHILS # (AUTO) 0.1 10^3/uL (0.0-0.3); EOSINOPHILS % (AUTO) 1 % (0-10); HEMATOCRIT 40 % (35-52); MONOCYTES % (AUTO) 10 % (0-12); WHITE BLOOD COUNT 6.4 10^3/uL (4.3-11.0)
[2021-10-14 14:18] LABS: HEMOGLOBIN 13.4 g/dL (11.5-16.0); LYMPHOCYTES % (AUTO) 23 % (12-44); MEAN CORPUSCULAR HEMOGLOBIN 31 pg (25-34); MEAN CORPUSCULAR HGB CONC 33 g/dL (32-36); MEAN CORPUSCULAR VOLUME 94 fL (80-99); MEAN PLATELET VOLUME 12.1 fL (9.0-12.2); NEUTROPHILS % (AUTO) 66 % (42-75); PLATELET COUNT 91 10^3/uL (130-400)
[2021-10-14 14:19] LABS: LYMPHOCYTES # (AUTO) 1.5 10^3/uL (1.0-4.0); MONOCYTES # (AUTO) 0.7 10^3/uL (0.0-1.0); NEUTROPHILS # (AUTO) 4.2 10^3/uL (1.8-7.8)
[2021-10-14 14:32] LABS: CALCIUM 9.4 MG/DL (8.5-10.1); CREATININE SERUM 1.28 MG/DL (0.60-1.30)
[2021-10-21 13:40] LABS: BASOPHILS % (AUTO) 0 % (0-10); MEAN PLATELET VOLUME 11.7 fL (9.0-12.2)
[2021-10-21 13:42] LABS: EOSINOPHILS # (AUTO) 0.1 10^3/uL (0.0-0.3); EOSINOPHILS % (AUTO) 3 % (0-10); HEMATOCRIT 40 % (35-52); HEMOGLOBIN 13.3 g/dL (11.5-16.0); LYMPHOCYTES # (AUTO) 1.2 10^3/uL (1.0-4.0); LYMPHOCYTES % (AUTO) 28 % (12-44); MEAN CORPUSCULAR HEMOGLOBIN 32 pg (25-34); MEAN CORPUSCULAR HGB CONC 33 g/dL (32-36); MEAN CORPUSCULAR VOLUME 95 fL (80-99); MONOCYTES # (AUTO) 0.6 10^3/uL (0.0-1.0); MONOCYTES % (AUTO) 13 % (0-12); NEUTROPHILS # (AUTO) 2.5 10^3/uL (1.8-7.8); NEUTROPHILS % (AUTO) 57 % (42-75); PLATELET COUNT 114 10^3/uL (130-400); WHITE BLOOD COUNT 4.3 10^3/uL (4.3-11.0)
[2021-10-21 14:04] LABS: BILIRUBIN,TOTAL 1.1 MG/DL (0.1-1.0); CALCIUM 9.1 MG/DL (8.5-10.1); CREATININE SERUM 1.18 MG/DL (0.60-1.30); POTASSIUM 3.9 MMOL/L (3.6-5.0); TOTAL PROTEIN 6.3 GM/DL (6.4-8.2)
== END 2021-11-01 | disposition still patient (30) ==
LOC: ONC 13:29
PROVIDERS: ATTEND Internal Medicine Hematology & Oncology
DX: Z51.11 Encounter for antineoplastic chemotherapy (principal); Z45.2 Encounter for adjustment and management of vascular access device; C90.00 Multiple myeloma not having achieved remission; M84.58XA Pathological fracture in neoplastic disease, other specified site, initial encounter for fracture; I63.549 Cerebral infarction due to unspecified occlusion or stenosis of unspecified cerebellar artery; Z86.711 Personal history of pulmonary embolism; Z79.01 Long term (current) use of anticoagulants; Z79.891 Long term (current) use of opiate analgesic; Z79.899 Other long term (current) drug therapy; Z92.3 Personal history of irradiation; Z92.21 Personal history of antineoplastic chemotherapy
CPT/HCPCS: 80048; 80053; 82784; 83883; 84155; 84165; 85025; 96401; 99213

== ENCOUNTER 2021-11-04 15:03 | Outpatient (RCR) | payer MEDICARE, OTHER ==
[~2021-11-04 15:03] MED LIST changes: -BORTEZOMIB 3.5 MG VELCADE IV SCH; -MONTELUKAST 10 MG (SINGULAIR) TAB PO SCH; -NS IV 1000 ML (CANCER CTR) IV SCH; -ZOLEDRONIC ACID (CANCER CTR) 3.5 MG in NS (IVPB) CANCER CENTER 100 ML IV SCH; -[UNRECOGNIZED DRUG - OTHER] SQ SCH
[2021-11-04 15:15] LABS: BASOPHILS % (AUTO) 0 % (0-10); EOSINOPHILS # (AUTO) 0.1 10^3/uL (0.0-0.3); EOSINOPHILS % (AUTO) 1 % (0-10); MEAN PLATELET VOLUME 11.6 fL (9.0-12.2)
[2021-11-04 15:17] LABS: HEMATOCRIT 39 % (35-52); LYMPHOCYTES % (AUTO) 20 % (12-44); MEAN CORPUSCULAR HEMOGLOBIN 32 pg (25-34); MEAN CORPUSCULAR HGB CONC 34 g/dL (32-36); MEAN CORPUSCULAR VOLUME 95 fL (80-99); MONOCYTES # (AUTO) 0.7 10^3/uL (0.0-1.0); MONOCYTES % (AUTO) 13 % (0-12); NEUTROPHILS # (AUTO) 3.3 10^3/uL (1.8-7.8); NEUTROPHILS % (AUTO) 66 % (42-75); PLATELET COUNT 93 10^3/uL (130-400)
[2021-11-04 15:33] LABS: CALCIUM 9.4 MG/DL (8.5-10.1); CREATININE SERUM 1.18 MG/DL (0.60-1.30); POTASSIUM 3.9 MMOL/L (3.6-5.0)
== END 2021-12-02 | disposition home or self-care (01) ==
LOC: ONC 15:03
PROVIDERS: ATTEND Internal Medicine Hematology & Oncology
DX: C90.00 Multiple myeloma not having achieved remission (principal); M84.58XA Pathological fracture in neoplastic disease, other specified site, initial encounter for fracture; Z86.711 Personal history of pulmonary embolism; Z79.899 Other long term (current) drug therapy; Z92.3 Personal history of irradiation
CPT/HCPCS: 80048; 85025

== ENCOUNTER → 2023-01-19 | Outpatient (CLI) | payer MEDICARE, OTHER ==
[~2023-01-19] MED LIST changes: +LEVO750T PO; -LEVO750T39 PO
--- NOTE | 2023-01-19 17:28 | Diagnostic Imaging Report ---
INDICATION: Acute bronchitis PA and lateral views of chest are obtained with comparison made study of 09/05/2021. Heart size and pulmonary vascularity are within normal limits. There is no pneumothorax or consolidation. There is slight linear atelectasis in the lung bases. No pneumothorax or pleural fluid is seen. There is nonacute vertebral plana within a mid level of vertebral body. IMPRESSION: Linear atelectasis in lung bases without other evidence of acute abnormality. Dictated by: Dictated on workstation # [id number]
== END ==
LOC: RAD FS 16:46
PROVIDERS: ATTEND Nurse Practitioner Family
DX: J20.9 Acute bronchitis, unspecified (principal); J98.11 Atelectasis
CPT/HCPCS: 71046

== ENCOUNTER → 2023-02-20 | Outpatient (CLI) | payer MEDICARE, OTHER ==
--- NOTE | 2023-02-20 17:38 | Diagnostic Imaging Report ---
EXAMINATION: Right foot, three views. HISTORY: Foot wound. COMPARISON: 01/14/2018. FINDINGS: There are unchanged wires projecting over the base of the fifth metatarsal. 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 No acute fracture is seen. No dislocation. No erosion. There is soft tissue swelling of the second toe. IMPRESSION: 1. Soft tissue swelling of the second toe. No underlying erosion or fracture. Dictated by: Dictated on workstation # [id number]
== END ==
LOC: RAD FS 14:34
PROVIDERS: ATTEND Nurse Practitioner Family
DX: S91.301A Unspecified open wound, right foot, initial encounter (principal); X58.XXXA Exposure to other specified factors, initial encounter
CPT/HCPCS: 73630

== ENCOUNTER → 2023-03-01 | Outpatient (CLI) | payer MEDICARE, OTHER ==
[2023-03-01 07:07] LABS: ALBUMIN 3.4 GM/DL (3.2-4.5); BILIRUBIN,TOTAL 1.2 MG/DL (0.1-1.0); CALCIUM 7.7 MG/DL (8.5-10.1); CREATININE SERUM 1.14 MG/DL (0.60-1.30); POTASSIUM 3.4 MMOL/L (3.6-5.0); TOTAL PROTEIN 5.1 GM/DL (6.4-8.2)
== END ==
LOC: LABNPT 06:56
PROVIDERS: ATTEND Internal Medicine
DX: Z01.89 Encounter for other specified special examinations (principal)
CPT/HCPCS: 80053

== ENCOUNTER → 2023-04-14 | Outpatient (CLI) | payer MEDICARE, OTHER | LOC: CARD 10:01 | PROVIDERS: ATTEND Internal Medicine Hematology & Oncology | DX: Z51.11 Encounter for antineoplastic chemotherapy (principal); I08.0 Rheumatic disorders of both mitral and aortic valves; C90.00 Multiple myeloma not having achieved remission | CPT/HCPCS: 93306 ==

== ENCOUNTER → 2023-04-18 | Outpatient (CLI) | payer MEDICARE, OTHER ==
--- NOTE | 2023-04-18 14:46 | Diagnostic Imaging Report ---
EXAMINATION: CHEST (PA AND LATERAL) CLINICAL INDICATION: 67-year-old female, chest and rib pain. History of multiple myeloma. COMPARISON: January 19, 2023. FINDINGS: Heart size and mediastinal contours are unchanged. There is no identified pneumothorax. There is blunting of the right lateral costophrenic angle. There is mild blunting the left lateral costophrenic angle. This is essentially unchanged. There are linear opacities in the left lung base most likely reflecting atelectasis. IMPRESSION: 1. Redemonstrated and unchanged blunting of the right and left lateral costophrenic angles. 2. No identified interval acute cardiopulmonary abnormality. Dictated by: Dictated on workstation # [id number]
== END ==
LOC: RAD FS 13:48
PROVIDERS: ATTEND Nurse Practitioner Family
DX: C90.02 Multiple myeloma in relapse (principal); M54.6 Pain in thoracic spine; R93.89 Abnormal findings on diagnostic imaging of other specified body structures
CPT/HCPCS: 71046